=== PATIENT | male | born 1950 | race Caucasian/White ===

== ENCOUNTER → 2017-03-30 14:39 | Outpatient (CLI) | payer MEDICARE, OTHER, SELFPAY ==
[2017-02-27 09:00] VITALS: BP 109/69
[2017-03-30 13:54] VITALS: BP 98/50; BMI 29.9
[2017-03-30 16:19] LABS: Absolute Lymphocyte Count 1.42 X10^3/ul (0.83-4.51); Absolute Neutrophil Count 2.9 X10^3/uL (2.0-7.7); Basophil# 0.02 X10^3/uL; Basophil% 0.4 % (0-1); Eosinophil# 0.33 X10^3/uL; Eosinophils% 6.2 % (0-5); Hematocrit 42.8 % (40-54); Hemoglobin 14.2 g/dl (13.0-16.5); Lymphocyte # 1.42 X10^3/ul (4.0); Lymphocyte % 26.7 % (19-41); Mean Corp Hgb Conc 33.2 g/gl (32-36); Mean Corpuscular Hgb 30.5 pg (27.0-32.0); Mean Corpuscular Volume 91.8 fL (80-94); Mean Platelet Vol. 9.5 fl (6.2-12.0); Monocyte% 11.3 % (0-10); Neutrophil # 2.94 X10^3/uL (2.7-7.7); Neutrophil % 55.2 % (47-70); Platelet Count 288 K/mm3 (150-450); RBC Distribution Width CV 13.6 % (11.6-14.6); RBC Distribution Width SD 45.1 fl (35.1-43.9); Red Blood Count 4.66 M/mm3 (4.6-6.2); White Blood Count 5.3 K/mm3 (4.4-11.0)
[2017-03-30 16:23] LABS: POSITIVE COUNT NO; POSITIVE DIFFERENTIAL NO; POSITIVE MORPHOLOGY NO
[2017-03-30 16:34] LABS: Anion Gap 9 (5-15); BUN 14 mg/dL (7-18); Calcium,Total 8.5 mg/dL (8.5-10.1); Chloride 102 mmol/L (98-107); Creatinine, Serum 0.87 mg/dL (0.70-1.30); EST Glomerular Filtration Rate 92 mL/min (>60); Est Glom Filt Rate - Afr Amer 112 mL/min (>60); Glucose 91 mg/dL (74-106); Potassium 3.9 mmol/L (3.5-5.1); Sodium Level 139 mmol/L (136-145)
== END ==
PROVIDERS: Family Provider Family Medicine; PCP Family Medicine; Visit Provider Internal Medicine Cardiovascular Disease
DX: R07.9 Chest pain, unspecified (principal); E78.5 Hyperlipidemia, unspecified
CPT/HCPCS: 36415; 80048; 85025

== ENCOUNTER 2017-04-04 12:43 | Inpatient (IN) | payer MEDICARE, OTHER, SELFPAY ==
[2017-02-27 09:00] VITALS: BP 109/69
[2017-03-30 13:54] VITALS: BP 98/50; BMI 29.9
[2017-04-02 10:21] VITALS: BMI 29.9
[2017-04-03] VITALS (34 sets, daily range): BP systolic 49–125; BP diastolic 34–65; PULSE 51–76; RESP 12–61; TEMP 36.1–37.1; O2SAT 92–100; BMI 30.9
--- NOTE | 2017-04-03 11:30 | EKG12_ITS ---
Test Reason : CP Blood Pressure : / mmHG Vent. Rate : 057 BPM Atrial Rate : 057 BPM P-R Int : 172 ms QRS Dur : 074 ms QT Int : 412 ms P-R-T Axes : 037 -27 065 degrees QTc Int : 401 ms Sinus bradycardia Inferior infarct , age undetermined, possibly recent Abnormal ECG Confirmed by MICHELLE FIELD, ROSEANNE ([id number]), writer editor GEREMIAS FELDER ([id number]) on 04/04/2017 1:34:19 PM Referred By: Rodger Newell Confirmed By:ROSEANNE MARTINEZ MD
--- NOTE | 2017-04-03 11:58 | CRPHASE1 ---
Patient Data/Charges Phase II Referral:: [facility] - PT NOT SEEN TODAY WE GAVE HIM CRPHII INFO IN FEB 2016 Risk Factors/Lifestyle Family History: Family History (Last Reviewed 03/30/17 @ 14:13 by Rodger Newell MD) Father CAD (coronary artery disease)
--- NOTE | 2017-04-03 11:58 | NURSING ---
1150 Pt w/ onset of nausea and diaphoresis 1152 EKG obtained HR 58 RR 14 97% on 3L BP 87/53 IVF bolus started nitro stopped MD notified per Shonda RN
[2017-04-03] MEDS: 0.9% Normal Saline 1,000 ML 100 ML IV (12:00)
--- NOTE | 2017-04-03 12:01 | CRPHASE1_ITS ---
Patient Data/Charges Phase II Referral:: [facility] - PT NOT SEEN TODAY WE GAVE HIM CRPHII INFO IN FEB 2016 Risk Factors/Lifestyle Family History: Family History (Last Reviewed 03/30/17 @ 14:13 by Rodger Newell MD) Father CAD (coronary artery disease)
--- NOTE | 2017-04-03 12:01 | CRPH1.INSTRU ---
General Education CAD and cardiac anatomy and function:: Not instructed Explanation of diagnoses and procedures:: Not instructed Sign/Symptoms of NM:: Not instructed Antiplatelet therapy: Not instructed Proper use of NTG-SL: Not instructed Emergency procedures and activation of EMS: Not instructed Compliance of all prescribed medications: Not instructed - PT NOT SEEN TODAY WE SAW HIM IN FEB 2016
--- NOTE | 2017-04-03 12:02 | CL.I_ITS ---
Patient Name: ALVARO HALL Study Date: 04/03/2017 Performing: Paris Jaeger MD Ht: 66 inches 168 cm : 1950 Wt: 185.4 lbs 84 kg Age: 66 Gender: male BSA: 1.94 PROCEDURE(S) PERFORMED [id number] W OR WO PTCA, SINGLE CORONARY ARTERY [id number], EACH ADD'L CORONARY ART, SAME MAJOR [id number], CORONARY OR GRAFT, INITIAL VESSEL CLINICAL PROFILE AND CO-MORBIDITIES Angina Classification Anginal Classification w/in 2 Weeks: CCS III CAD Presentations: Stable angina. CONCLUSIONS Successful PTCA/PARTH of the distal RCA into RPDA using Resolute Integrity 2.25x26 mm, post-dilated usi ng 2.5 mm balloon Post IVUS showed excellent stent apposition RECOMMENDATIONS ASA Indefinitley Effient for at least one year Follow up with Dr. Newell INTERVENTION INFORMATION LESION SITE: RCA (Distal) Lesion Complexity: High/C, lesion at bifurcation: Yes Pre Stenosis: 99 % Pre intervention GISSELLE flow: 2 PROCEDURE: Drug Eluting Stent with pre and post dilatation Post Stenosis: 0 % Post intervention GISSELLE flow: 3 Lesion Devices: Medtronic 6 Fr AL.75 100cm Guide Catheter Terumo .014 Runthrough Extra Floppy 180cm straight Terumo .014 Runthrough Extra Floppy 180cm straight Killian Sci EMERGE MR 2.00x20 BALLOON Medtronic Resolute RX PARTH 2.25x26 [place] Coronary IVUS Catheter LESION SITE: RPL (1st) Lesion Complexity: High/C Pre Stenosis: 95 % Pre intervention GISSELLE flow: 3 PROCEDURE: Post Stenosis: 10 % Post intervention GISSELLE flow: 3 Lesion Devices: Le .014 HT Whisper MS Straight 190cm Killian Sci EMERGE MR 2.00x12 BALLOON Killian Sci EMERGE MR 2.50x12 BALLOON [place] Coronary IVUS Catheter LESION SITE: RCA (Mid) Lesion Complexity: High/C, Lesion Complexity: High/C Pre Stenosis: 80 % Pre intervention GISSELLE flow: 3 PROCEDURE: Drug Eluting Stent with post dilatation 0 % Post intervention GISSELLE flow: 3 Lesion Devices: Medtronic Resolute RX PARTH 3.0x15 Killian Sci NC EMERGE MR 3.00x08 BALLOON [place] Coronary IVUS Catheter Medtronic Resolute RX PARTH 3.0x30 Killian Sci NC EMERGE MR 3.00x20 BALLOON COMPLICATIONS No Complications PROCEDURE MEDICATIONS Fentanyl 25 mcg IV Versed 2 mg IV Fentanyl 25 mcg IV Versed 1 mg IV Fentanyl 25 mcg IV Fentanyl 50 mcg IV Versed 1 mg IV Fentanyl 50 mcg IV Fentanyl 25 mcg IV Oxygen: 2 L/min via nasal cannula Oxygen: 100 % FiO2 via non-rebreather mask Atropine 1mg/10ml 0.5 amp @ 04/03/2017 09:03:49 Heparin diluted in 23cc Heparinized saline. Patient given 10cc IA of this solution. 04/03/2017 08:37: 02 Heparin 6000 unit(s) IV 04/03/2017 08:38:15 Heparin 1000 unit(s) IV 04/03/2017 09:19:33 Heparin 1000 unit(s) IV 04/03/2017 10:13:50 Nitro 200 mcg IC 04/03/2017 08:48:45 Nitro 200 mcg IC 04/03/2017 08:48:45 Nitro 200 mcg IC 04/03/2017 08:58:39 Nitro 200 mcg IC 04/03/2017 09:44:48 Nitro 200 mcg IC 04/03/2017 10:04:24 Nitro 200 mcg IC 04/03/2017 10:13:35 Nipride 100 mcg IV 04/03/2017 10:34:49 Nitro glycerin 25mg / 250ml D5W @ 10 mcg/min IV started 04/03/2017 10:43:01 Verapamil 2.5mg, Ntg 100mcgs, 2000 units of Heparin diluted in 23cc Heparinized saline. Patient give n 10cc IA of this solution. 04/03/2017 08:37:02 IV Bolus: .9 NaCl 500 ml total 04/03/2017 08:35:12 IV Bolus: .9 NaCl 750 ml total 04/03/2017 10:45:33 SUMMARY OF HEMODYNAMIC DATA Time AIR REST ECG 07:14:03 AO 103/66 (82) SA 08:38:09 AO 127/79 (101) 08:50:15 AO 108/61 (79) 09:04:35 AO 115/71 (91) 09:05:22 AO 112/67 (88) 09:10:55 ECG 10:36:23 Signed By Paris Jaeger MD On 04/03/2017 12:01:46 Paris Jaeger MD
--- NOTE | 2017-04-03 12:49 | PCM.PN.BLA ---
Progress Note Patient had EKG changes while on the table in the outside laborer. GISSELLE III flow. Patient had CP on the table but resolved. No further CP. Quick bedside echo showed no wall motion abnormality.Continue to monitor.
--- NOTE | 2017-04-03 12:52 | PN_ITS ---
Progress Note Patient had EKG changes while on the table in the general laborer. GISSELLE III flow. Patient had CP on the table but resolved. No further CP. Quick bedside echo showed no wall motion abnormality.Continue to monitor.
[2017-04-03 13:21] LABS: ACT Activated Clotting Time 224 sec (74-137)
[2017-04-03 13:21] LABS: ACT Activated Clotting Time 246 sec (74-137)
[2017-04-03] MEDS: 0.9% NaCl Peripheral Flush Adult/Peds IV ×2 (13:36→14:39)
[2017-04-03] MEDS: Ondansetron 4 MG/2 ML Vial IV (13:36)
--- NOTE | 2017-04-03 13:46 | NURSING ---
Echo at bedside
--- NOTE | 2017-04-03 13:58 | CHAPLAIN ---
Type of Pastoral Visit _x__ Initial Visit ___ Follow-up Visit ___ On-call Visit ___ General Patient Visit ___ Spiritual Assessment ___ Family Conference ___ Bereavement ___ Rapid Response ___ Code Blue ___ Other (describe below) Pastoral Care Referral From _x__ Patient _x__ Family ___ Nurse ___ Physician ___ Undercoat Sprayer ___ Infantry Indirect Fire Crewmember ___ Other (describe below) Sacrament/Intervention _x__ Active listening ___ Anointing ___ Yazidi ___ Bereavement ___ Communion ___ Tuyet exploration ___ ___ Life review _x__ Prayer ___ Reconciliation ___ Sacrament of Sick _x__ Supportive presence ___ Wedding ___ Other (describe below) Pastoral Comments family members and bahai friend are with patient for support; patient welcomes a group prayer; pt has had successful surgery and says I am ready to get active again
--- NOTE | 2017-04-03 14:06 | ECHOL_ITS ---
Reason For Study: Abn. EKG Procedure This was a limited 2D transthoracic echocardiogram. Exam performed portable in ICU/CCU. Left Ventricle Normal LV size. Left ventricular systolic function is normal. The estimated ejection fraction is 60 %. No regional wall motion abnormalities noted. Mitral Valve Normal mitral valve. Trivial eccentric mitral valve insufficiency. Pericardium/Pleural No pericardial effusion. MMode/2D Measurements & Calculations LVIDd: 3.8 cm IVSd: 0.94 cm LVIDs: 2.4 cm LVPWd: 1.0 cm FS: 38.5 % Interpretation Summary Normal LV size. Left ventricular systolic function is normal. The estimated ejection fraction is 60 %. No regional wall motion abnormalities noted. Ordering Physician: Paris Jaeger Referring Physician: Alvaro Smith Performed By: Dolores Arellano RDCS
[2017-04-03 14:26] LABS: M R Staph aureus DNA By PCR Negative (Negative); Probe Check PASS; Specimen Processing Control PASS
[2017-04-03] MEDS: fentaNYL 100 MCG/2 ML Ampul 25 MCG IV (14:39)
--- NOTE | 2017-04-03 15:07 | NURSING ---
Pt given crackers and guicho taylor for nausea post fentanyl administration; IVF bolus infusing.
[2017-04-03] MEDS: 0.9% Normal Saline 1,000 ML 60 ML IV (15:30)
[2017-04-03] MEDS: Pravastatin 40 MG Tablet PO (21:20)
[2017-04-03] MEDS: Metoprolol Tartrate 25 MG Tablet PO (21:39)
--- NOTE | 2017-04-03 23:03 | NURSING ---
500 cc bolus given for Blood Pressure of 73/36 (48). Heather Griffiths RN.
[2017-04-04] VITALS (34 sets, daily range): BP systolic 84–129; BP diastolic 33–93; PULSE 51–73; RESP 11–25; TEMP 35.9–37; O2SAT 91–98
[2017-04-04] MEDS: 0.9% Normal Saline 500 ML IV.SOLN. IV (02:00)
[2017-04-04] MEDS: Ondansetron 4 MG/2 ML Vial IV (02:39)
[2017-04-04] MEDS: 0.9% NaCl Peripheral Flush Adult/Peds IV (02:39)
[2017-04-04 05:38] LABS: Anion Gap 9 (5-15); BUN 13 mg/dL (7-18); Calcium,Total 7.9 mg/dL (8.5-10.1); Chloride 106 mmol/L (98-107); Creatinine, Serum 0.87 mg/dL (0.70-1.30); EST Glomerular Filtration Rate 93 mL/min (>60); Est Glom Filt Rate - Afr Amer 112 mL/min (>60); Estimated Creatinine Clearance 74.35 ml/min; Glucose 136 mg/dL (74-106); Potassium 3.6 mmol/L (3.5-5.1); Sodium Level 139 mmol/L (136-145)
[2017-04-04 05:41] LABS: Hematocrit 39.8 % (40-54); Hemoglobin 13.3 g/dl (13.0-16.5); Mean Corp Hgb Conc 33.4 g/gl (32-36); Mean Corpuscular Hgb 30.5 pg (27.0-32.0); Mean Corpuscular Volume 91.3 fL (80-94); Mean Platelet Vol. 9.3 fl (6.2-12.0); Platelet Count 264 K/mm3 (150-450); RBC Distribution Width CV 13.8 % (11.6-14.6); RBC Distribution Width SD 46.1 fl (35.1-43.9); Red Blood Count 4.36 M/mm3 (4.6-6.2); White Blood Count 11.8 K/mm3 (4.4-11.0)
[2017-04-04 05:42] LABS: Scan Indicated on CBC? Y/N NO
--- NOTE | 2017-04-04 05:55 | EKG12_ITS ---
Test Reason : AM EKG Blood Pressure : / mmHG Vent. Rate : 052 BPM Atrial Rate : 052 BPM P-R Int : 180 ms QRS Dur : 074 ms QT Int : 438 ms P-R-T Axes : 035 -36 050 degrees QTc Int : 407 ms Sinus bradycardia Left axis deviation Low voltage QRS Inferior infarct , age undetermined Abnormal ECG When compared with ECG of 03-APR-2017 12:04, MANUAL COMPARISON REQUIRED, DATA IS UNCONFIRMED Confirmed by RALPH FIELD, DASH ([id number]), city editor GEREMIAS FELDER ([id number]) on 04/05/2017 1:09:27 PM Referred By: RALPH Confirmed By:DASH ROSAS MD
--- NOTE | 2017-04-04 07:48 | PN.CARD_ITS ---
Subjectve: Patient seen and evaluated and events of yesterday noted. Objective: Vital Signs Temp Pulse Resp BP Pulse Ox 98.6 F 58 L 14 99/56 L 96 04/04/17 06:00 04/04/17 06:00 04/04/17 06:00 04/04/17 06:00 04/04/17 06:00 Oxygen Flow Rate 2 Oxygen Delivery Method Nasal Cannula Weight: 192 lb 10.944 oz Body Mass Index (BMI) 30.9 Intake and Output for Last 24 Hours 04/02/17 04/03/17 04/04/17 23:59 23:59 23:59 Intake Total 1491.6 / 1491.6 429 / 429 Output Total 1370 / 1370 225 / 225 Balance 121.6 / 121.6 204 / 204 General: Awake, Alert, Oriented x 3 HEENT: PERRL, EOMI, Sclera Non Icteric Neck: Supple, Good ROM, No Lymph Node Enlargement Lungs: Clear to auscultation Cardiovascular: Regular Rhythm, Normal S1, Normal S2, No Murmurs, No Rubs, No Gallops Vascular: No Carotid Bruits, Normal Femoral Pulses, Normal Radial Pulses, Normal Dorsalis Pedal Pulse, Normal Posterior Tibial Pulses Abdomen: Bowel Sounds Present, Soft, Non Tender, No HSM, No Organomegaly Extremities: No Cyanosis, No Clubbing, No edema Neurological: No Focal Motor or Sensory Deficit 04/04/17 04:00: WBC Cancelled, Corrected WBC Cancelled, RBC Cancelled, Hgb Cancelled, Hct Cancelled, MCV Cancelled, MCH Cancelled, MCHC Cancelled, RDW Cancelled, RDW Differential Cancelled, Plt Count Cancelled, MPV Cancelled 04/04/17 04:00: Sodium Cancelled, Potassium Cancelled, Chloride Cancelled, Carbon Dioxide Cancelled, Anion Gap Cancelled, BUN Cancelled, Creatinine Cancelled, Est GFR (MDRD) Af Amer Cancelled, Est GFR (MDRD) Non-Af Cancelled, BUN/Creatinine Ratio Cancelled, Glucose Cancelled, Calcium Cancelled, Troponin I Cancelled 04/04/17 05:05: WBC 11.8 H, RBC 4.36 L, Hgb 13.3, Hct 39.8 L, MCV 91.3, MCH 30.5 , MCHC 33.4, RDW 13.8, RDW Differential 46.1 H, Plt Count 264, MPV 9.3 04/04/17 05:05: Sodium 139, Potassium 3.6, Chloride 106, Carbon Dioxide 24.0, Anion Gap 9, BUN 13, Creatinine 0.87, Est GFR (MDRD) Af Amer 112, Est GFR (MDRD ) Non-Af 93, BUN/Creatinine Ratio 15.0, Glucose 136 H, Calcium 7.9 L, Troponin I 14.10 H* Rhythm: EKG: Normal sinus rhythm with inferior infarct noted ECHO: Preserved ejection fraction estimated at 55-60% with no wall motion abnormality present. Assessment/Plan 1. Coronary artery disease- S/P PTCA He underwent angioplasty and complex stenting of the mid and distal right coronary artery yesterday. The above was successful but he had a resultant type 4 myocardial infarction. Echocardiogram that was performed demonstrated preserved ejection fraction EKG changes with ST elevation have resolved back to baseline and currently the patient is pain-free this morning. Plan will be to continue him on aspirin Resume Plavix 75 mg twice daily ?10 days and then 75 mg daily High intensity statin Low-dose beta-alex with metoprolol 25 mg twice a day We will keep him in the ICU 1 more day. 2. Wide Complex tachycardia Patient did experience some wide complex tachycardia which may have been reperfusion arrhythmias. Was started on amiodarone. The plan will be to complete the amiodarone infusion. Would give some potassium supplementation this morning. Above discussed with patient, and nursing staff.
[2017-04-04] MEDS: Aspirin E.C. 81 MG Tablet PO (09:20)
[2017-04-04] MEDS: Clopidogrel Bisulfate 75 MG Tablet PO ×2 (09:20→21:50)
--- NOTE | 2017-04-04 17:01 | CHAPLAIN ---
Type of Pastoral Visit ___ Initial Visit _x__ Follow-up Visit ___ On-call Visit ___ General Patient Visit ___ Spiritual Assessment ___ Family Conference ___ Bereavement ___ Rapid Response ___ Code Blue ___ Other (describe below) Pastoral Care Referral From _x__ Patient _x__ Family ___ Nurse ___ Physician ___ Paint Tester ___ Freezer Worker ___ Other (describe below) Sacrament/Intervention ___ Active listening ___ Anointing ___ Yazdanism ___ Bereavement ___ Communion ___ Tuyet exploration ___ ___ Life review ___ Prayer ___ Reconciliation ___ Sacrament of Sick _x__ Supportive presence ___ Wedding ___ Other (describe below) Pastoral Comments
[2017-04-04] MEDS: Pravastatin 40 MG Tablet PO (21:50)
[2017-04-05] VITALS (11 sets, daily range): BP systolic 95–122; BP diastolic 50–64; PULSE 58–83; RESP 8–24; TEMP 36.6–36.9; O2SAT 91–96
[2017-04-05 03:46] LABS: Hematocrit 42.2 % (40-54); Hemoglobin 14.3 g/dl (13.0-16.5); Mean Corp Hgb Conc 33.9 g/gl (32-36); Mean Corpuscular Hgb 31.2 pg (27.0-32.0); Mean Corpuscular Volume 91.9 fL (80-94); Mean Platelet Vol. 9.3 fl (6.2-12.0); Platelet Count 241 K/mm3 (150-450); RBC Distribution Width SD 46.3 fl (35.1-43.9); Red Blood Count 4.59 M/mm3 (4.6-6.2); White Blood Count 12.5 K/mm3 (4.4-11.0)
[2017-04-05 03:47] LABS: Scan Indicated on CBC? Y/N NO
[2017-04-05 03:58] LABS: Anion Gap 6 (5-15); BUN 8 mg/dL (7-18); BUN/Creat Ratio 11.4 RATIO (10-20); Chloride 107 mmol/L (98-107); EST Glomerular Filtration Rate 119 mL/min (>60); Est Glom Filt Rate - Afr Amer 145 mL/min (>60); Estimated Creatinine Clearance 64.69 ml/min; Glucose 109 mg/dL (74-106); Potassium 3.6 mmol/L (3.5-5.1); Sodium Level 140 mmol/L (136-145)
--- NOTE | 2017-04-05 05:55 | EKG12_ITS ---
Test Reason : AM EKG Blood Pressure : / mmHG Vent. Rate : 057 BPM Atrial Rate : 057 BPM P-R Int : 170 ms QRS Dur : 070 ms QT Int : 422 ms P-R-T Axes : 036 -44 -12 degrees QTc Int : 410 ms Sinus bradycardia Left axis deviation Low voltage QRS Inferior infarct , age undetermined Abnormal ECG When compared with ECG of 04-APR-2017 05:02, MANUAL COMPARISON REQUIRED, DATA IS UNCONFIRMED Confirmed by SUAD ARRIAZA ([id number]), editor at large GEREMIAS FELDER ([id number]) on 04/12/2017 3:03:23 PM Referred By: Rodger Newell Confirmed By:SUAD ARRIAZA
--- NOTE | 2017-04-05 08:08 | PCM.PN.CARD ---
Subjectve: Patient seen and evaluated and appears to be doing well today no chest pain no shortness of breath no dizziness no arrhythmias. Objective: Vital Signs Temp Pulse Resp BP Pulse Ox 97.8 F 68 14 99/59 L 91 04/05/17 04:00 04/05/17 06:00 04/05/17 06:00 04/05/17 06:00 04/05/17 06:00 Oxygen Flow Rate 2 Oxygen Delivery Method Room Air Weight: 192 lb 10.944 oz Body Mass Index (BMI) 30.9 Intake and Output for Last 24 Hours 04/03/17 04/04/17 04/05/17 23:59 23:59 23:59 Intake Total 1491.6 / 1491.6 2149 / 2149 695.5 / 695.5 Output Total 1370 / 1370 2375 / 2375 1075 / 1075 Balance 121.6 / 121.6 -226 / -226 -379.5 / -379.5 General: Awake, Alert, Oriented x 3 HEENT: PERRL, EOMI, Sclera Non Icteric Neck: Supple, Good ROM, No Lymph Node Enlargement Lungs: Clear to auscultation Cardiovascular: Regular Rhythm, Normal S1, Normal S2, No Murmurs, No Rubs, No Gallops Vascular: No Carotid Bruits, Normal Femoral Pulses, Normal Radial Pulses, Normal Dorsalis Pedal Pulse, Normal Posterior Tibial Pulses Abdomen: Bowel Sounds Present, Soft, Non Tender, No HSM, No Organomegaly Extremities: No Cyanosis, No Clubbing, No edema Neurological: No Focal Motor or Sensory Deficit 04/05/17 03:35: WBC 12.5 H, RBC 4.59 L, Hgb 14.3, Hct 42.2, MCV 91.9, MCH 31.2, MCHC 33.9, RDW 14.0, RDW Differential 46.3 H, Plt Count 241, MPV 9.3 04/05/17 03:35: Sodium 140, Potassium 3.6, Chloride 107, Carbon Dioxide 27.0, Anion Gap 6, BUN 8, Creatinine 0.70, Est GFR (MDRD) Af Amer 145, Est GFR (MDRD) Non-Af 119, BUN/Creatinine Ratio 11.4, Glucose 109 H, Calcium 8.0 L Rhythm: EKG: Sinus rhythm with inferior Q waves. ECHO: Ejection fraction 60% Assessment/Plan 1. Coronary artery disease- S/P PTCA He underwent angioplasty and complex stenting of the mid and distal right coronary artery . The above was successful but he had a resultant type 4 myocardial infarction. Echocardiogram that was performed demonstrated preserved ejection fraction EKG changes with ST elevation have resolved back to baseline and currently the patient is pain-free this morning. Plan will be to continue him on aspirin Resume Plavix 75 mg twice daily ?10 days and then 75 mg daily High intensity statin Low-dose beta-alex with metoprolol 25 mg twice a day 2. Wide Complex tachycardia Patient did experience some wide complex tachycardia which may have been reperfusion arrhythmias. Was started on amiodarone. The plan will be to complete the amiodarone infusion. No further arrhythmias have been noted and with a preserved ejection fraction would only continue the metoprolol 25 mg twice a day. To be followed as an outpatient in the office in cardiac rehabilitation.
--- NOTE | 2017-04-05 08:10 | PCM.DC.CCA ---
Discharge Diet: Low fat/ Low Cholesterol Discharge Activity: Return to Normal Activity Call your doctor if your incision/area has: Increased Pain/ Swelling, Increased Redness, Foul Smelling Discharge, Swelling at the incision site Call your doctor if you observe: Fever of 101 or Higher Additional Dressing/Incision Instructions:: Keep the dressing (bandage) on until the next morning. You may then shower, but do not take a tub bath for 5 days after your test. It is normal to have some tenderness and discomfort at the puncture site. Sometimes bruising also occurs. However, if pain, numbness, or coldness occurs below the puncture site (in your leg, toes, arms or fingers) call your doctor at once. You may have a small, marble sized knot at the puncture site. This is normal. Do not rub it. It will go away in 4-6 weeks. Bleeding can occur from the area where the puncture was done. Blood may spurt or drip from the site. If blood spurts, apply pressure right away to stop bleeding and call 911. Although rare, bleeding into the tissue (hematoma) can also occur. If this happens, a large, firm area goose egg under the skin will appear. If any of these occur, lie down as flat as you can and have someone apply firm pressure to the cath site with a gauze pad or a clean washcloth for 10-15 minutes. Call 911 or go to the Emergency Department. Allergies/Adverse Reactions: Allergies ticagrelor [From Brilinta] Adverse Reaction (Verified 03/30/17 14:00) Orthopnea Medications to take at Discharge Isosorbide Mononitrate [Imdur] 30 mg PO DAILY #90 tablet 02/27/17 Metoprolol Tartrate [Lopressor (beta alex)] 25 mg PO BID #120 tablet 02/27/17 Pravastatin [Pravachol] 40 mg PO QHS #90 tablet 02/27/17 aspirin 81 mg tablet,delayed release 81 mg PO QDAY #90 tab 02/27/17 clopidogrel 75 mg tablet 75 mg PO BIDAC tab 03/30/17 Primary Care Physician: Alvaro Smith DO [Primary Care Provider] - When: kayley Proposed Discharge Date: 04/05/17 Cardiac Rehabilitation Info Cardiac Rehabilitation Program Information: Cardiac Rehabilitation is important for patients like you who are recovering from a heart problem. Cardiac rehabilitation programs are recognized as integral to the continued care of the patient with coronary heart disease. The cardiac rehabilitation program is designed to optimize a patient's physical, psychological, and social functioning. Health child care leader work in cardiac rehabilitation programs and assist you with getting the treatments you need to get stronger and healthier - like exercise, healthy eating habits, and medications. Cardiac rehabilitation has been show to help people with heart problems live longer and have better life enjoyment than people who do not go to cardiac rehabilitation. Please contact the Cardiac Rehabilitation Program at [facility] at in two weeks if you have not heard from them.
--- NOTE | 2017-04-05 08:15 | DCINST_ITS ---
Discharge Diet: Low fat/ Low Cholesterol Discharge Activity: Return to Normal Activity Call your doctor if your incision/area has: Increased Pain/ Swelling, Increased Redness, Foul Smelling Discharge, Swelling at the incision site Call your doctor if you observe: Fever of 101 or Higher Additional Dressing/Incision Instructions:: Keep the dressing (bandage) on until the next morning. You may then shower, but do not take a tub bath for 5 days after your test. It is normal to have some tenderness and discomfort at the puncture site. Sometimes bruising also occurs. However, if pain, numbness, or coldness occurs below the puncture site (in your leg, toes, arms or fingers) call your doctor at once. You may have a small, marble sized knot at the puncture site. This is normal. Do not rub it. It will go away in 4-6 weeks. Bleeding can occur from the area where the puncture was done. Blood may spurt or drip from the site. If blood spurts, apply pressure right away to stop bleeding and call 911. Although rare, bleeding into the tissue (hematoma) can also occur. If this happens, a large, firm area goose egg under the skin will appear. If any of these occur, lie down as flat as you can and have someone apply firm pressure to the cath site with a gauze pad or a clean washcloth for 10-15 minutes. Call 911 or go to the Emergency Department. Allergies/Adverse Reactions: Allergies ticagrelor [From Brilinta] Adverse Reaction (Verified 03/30/17 14:00) Orthopnea Medications to take at Discharge Isosorbide Mononitrate [Imdur] 30 mg PO DAILY #90 tablet 02/27/17 Metoprolol Tartrate [Lopressor (beta alex)] 25 mg PO BID #120 tablet Pravastatin [Pravachol] 40 mg PO QHS #90 tablet 02/27/17 aspirin 81 mg tablet,delayed release 81 mg PO QDAY #90 tab 02/27/17 clopidogrel 75 mg tablet 75 mg PO BIDAC tab 03/30/17 Primary Care Physician: Alvaro Smith DO [Primary Care Provider] - When: kayley Proposed Discharge Date: 04/05/17 Cardiac Rehabilitation Info Cardiac Rehabilitation Program Information: Cardiac Rehabilitation is important for patients like you who are recovering from a heart problem. Cardiac rehabilitation programs are recognized as integral to the continued care of the patient with coronary heart disease. The cardiac rehabilitation program is designed to optimize a patient's physical, psychological, and social functioning. Health child care education coordinator work in cardiac rehabilitation programs and assist you with getting the treatments you need to get stronger and healthier - like exercise, healthy eating habits, and medications. Cardiac rehabilitation has been show to help people with heart problems live longer and have better life enjoyment than people who do not go to cardiac rehabilitation. Please contact the Cardiac Rehabilitation Program at [facility] at in two weeks if you have not heard from them.
[2017-04-05] MEDS: Metoprolol Tartrate 25 MG Tablet PO (09:10)
[2017-04-05] MEDS: Aspirin E.C. 81 MG Tablet PO (09:10)
[2017-04-05] MEDS: Clopidogrel Bisulfate 75 MG Tablet PO (09:12)
[2017-04-05] MEDS: Isosorbide Mononitrate 30 MG Tablet PO (09:43)
== END 2017-04-05 09:55 | disposition home or self-care (01) | DRG 246 ==
LOC: ICU 12:43 → CLSP 12:43
PROVIDERS: Internal Medicine Cardiovascular Disease; Admitting Provider Internal Medicine Cardiovascular Disease; Family Provider Family Medicine; PCP Family Medicine; Visit Provider Internal Medicine Cardiovascular Disease
DX: I97.790 Other intraoperative cardiac functional disturbances during cardiac surgery (principal); I21.A9 Other myocardial infarction type; I25.10 Atherosclerotic heart disease of native coronary artery without angina pectoris; I25.118 Atherosclerotic heart disease of native coronary artery with other forms of angina pectoris
CPT/HCPCS: 80048; 84484; 85027; 85347; 87641; 92921; 92928; 92978; 93005; 93308; 99152; 99153; J7030; J7040; Q9967; A4216; C1725; C1753; C1769; C1874; C1887; C1894; C9600; J1327; J2405

== ENCOUNTER → 2017-04-12 11:54 | Outpatient (CLI) | payer MEDICARE, OTHER, SELFPAY | PROVIDERS: Family Provider Family Medicine; PCP Family Medicine; Visit Provider Family Medicine | DX: Z12.5 Encounter for screening for malignant neoplasm of prostate (principal) | CPT/HCPCS: 36415; 84153; G0103 ==

== ENCOUNTER → 2017-08-02 12:06 | Outpatient (CLI) | payer MEDICARE, OTHER, SELFPAY ==
[2017-08-02 13:53] LABS: AST(SGOT) 16 U/L (15-37); Alanine Aminotransfer ALT/SGPT 29 U/L (16-61); Albumin, Serum 3.7 g/dL (3.2-5.0); Alkaline Phosphatase 64 U/L (45-117); Bilirubin, Direct 0.14 mg/dL (0.00-0.30); Cholesterol 119 mg/dL (200); Globulin 3.6 g/dL (2.2-4.2); High Density Lipoprotein 42 mg/dL; Protein, Total 7.3 g/dL (6.4-8.2); Triglycerides 60 mg/dL; Very Low Density Lipoprotein 12 mg/dL (5-40)
== END ==
PROVIDERS: Family Provider Family Medicine; PCP Family Medicine; Visit Provider Internal Medicine Cardiovascular Disease
DX: E78.00 Pure hypercholesterolemia, unspecified (principal)
CPT/HCPCS: 36415; 80061; 80076

== ENCOUNTER → 2017-08-16 06:10 | Outpatient (CLI) | payer MEDICARE, OTHER, SELFPAY ==
--- NOTE | 2017-08-16 09:45 | STRESSREP ---
Stress Test Report Date: 08/16/2017 Procedure: Exercise tolerance test/imaging study Indications: CAD; status post PCI Consent: Per the patient Procedure: The patient exercised on a Surjit protocol for 9 minutes completing Stage III achieving a peak heart rate of 130 bpm (86 % predicted maximal heart rate) with a peak blood pressure 132/70 mmHg and a peak MET capacity of 10 METs. The baseline ECG demonstrated sinus bradycardia; nonspecific T-wave abnormality. The peak exercise ECG demonstrated somatic/motion artifact with no obvious ECG changes. There was a rare PVC during recovery. The functional capacity was considered good. There was vague chest discomfort at peak exercise with spontaneous resolution less than 1 minute in recovery. The examination was discontinued secondary to dyspnea and leg discomfort. Impression: 1. Technically adequate (percent predicted maximal heart rate greater than 85%) exercise tolerance test 2. Peak exercise ECG with somatic/motion artifact with no obvious ECG changes 3. There was a rare PVC during recovery. 4. Nuclear images pending Myocardial perfusion imaging study: Technique: The patient was injected with 11.2 mCi of technetium 99m Cardiolite and subsequently rest SPECT Cardiolite nuclear imaging was obtained in the horizontal long, vertical long, and short axis views. The patient exercised on a Surjit protocol for 9 minutes completing Stage III achieving a peak heart rate of 130 bpm (86 % predicted maximal heart rate) with a peak blood pressure 132/70 mmHg and a peak MET capacity of 10 METs. The patient was injected with 33.9 mCi of technetium 99m Cardiolite and subsequently stress SPECT Cardiolite nuclear imaging was obtained in the horizontal long, vertical long, and short axis views. A gated Cardiolite study at peak stress was obtained. Interpretation: Rest and stress SPECT Cardiolite nuclear imaging status post realignment, normalization, and attenuation correction, demonstrates the appearance of relative uniform tracer uptake and myocardial perfusion appearing within normal limits. There is end systolic thickening and brightening. The gated Cardiolite study demonstrates myocardial thickening and inward wall motion. The reported LVEF is 79 %. Impression: 1. Rest and stress SPECT Cardiolite nuclear imaging demonstrate relative uniform tracer uptake and myocardial perfusion appearing within normal limits. 2. The gated Cardiolite study reports an LVEF of 79 %. This note was generated with [employer] software. It may contain incorrect words, spelling, and punctuation that were not noted in checking the note before signing.
--- NOTE | 2017-08-16 09:48 | STRESSREP_ITS ---
Stress Test Report Date: 08/16/2017 Procedure: Exercise tolerance test/imaging study Indications: CAD; status post PCI Consent: Per the patient Procedure: The patient exercised on a Surjit protocol for 9 minutes completing Stage III achieving a peak heart rate of 130 bpm (86 % predicted maximal heart rate) with a peak blood pressure 132/70 mmHg and a peak MET capacity of 10 METs. The baseline ECG demonstrated sinus bradycardia; nonspecific T-wave abnormality. The peak exercise ECG demonstrated somatic/motion artifact with no obvious ECG changes. There was a rare PVC during recovery. The functional capacity was considered good. There was vague chest discomfort at peak exercise with spontaneous resolution less than 1 minute in recovery. The examination was discontinued secondary to dyspnea and leg discomfort. Impression: 1. Technically adequate (percent predicted maximal heart rate greater than 85% ) exercise tolerance test 2. Peak exercise ECG with somatic/motion artifact with no obvious ECG changes 3. There was a rare PVC during recovery. 4. Nuclear images pending Myocardial perfusion imaging study: Technique: The patient was injected with 11.2 mCi of technetium 99m Cardiolite and subsequently rest SPECT Cardiolite nuclear imaging was obtained in the horizontal long, vertical long, and short axis views. The patient exercised on a Surjit protocol for 9 minutes completing Stage III achieving a peak heart rate of 130 bpm (86 % predicted maximal heart rate) with a peak blood pressure 132/ 70 mmHg and a peak MET capacity of 10 METs. The patient was injected with 33.9 mCi of technetium 99m Cardiolite and subsequently stress SPECT Cardiolite nuclear imaging was obtained in the horizontal long, vertical long, and short axis views. A gated Cardiolite study at peak stress was obtained. Interpretation: Rest and stress SPECT Cardiolite nuclear imaging status post realignment, normalization, and attenuation correction, demonstrates the appearance of relative uniform tracer uptake and myocardial perfusion appearing within normal limits. There is end systolic thickening and brightening. The gated Cardiolite study demonstrates myocardial thickening and inward wall motion. The reported LVEF is 79 %. Impression: 1. Rest and stress SPECT Cardiolite nuclear imaging demonstrate relative uniform tracer uptake and myocardial perfusion appearing within normal limits. 2. The gated Cardiolite study reports an LVEF of 79 %. This note was generated with [employer] software. It may contain incorrect words, spelling, and punctuation that were not noted in checking the note before signing.
== END ==
PROVIDERS: Family Provider Family Medicine; PCP Family Medicine; Visit Provider Internal Medicine Cardiovascular Disease
DX: Z95.5 Presence of coronary angioplasty implant and graft (principal)
CPT/HCPCS: 78452; 93017; A9500; A4216

== ENCOUNTER → 2017-12-31 11:25 | Outpatient (CLI) | payer MEDICARE, OTHER, SELFPAY ==
--- NOTE | 2017-12-31 17:03 | STRESSREP ---
Stress Test Report Exercise stress test. 67-year-old man with a history of coronary artery disease. Stress protocol: Resting EKG demonstrates normal sinus rhythm with a rate of 68 bpm normal intervals and noted resting blood pressure 114/76 mmHg. The patient exercised according to regular Surjit protocol for a total duration of 9 minutes. The maximum heart rate attained was 137 bpm which was 90% of maximum predicted heart rate the maximum workload was 10.1 metabolic equivalents. The patient maintained sinus rhythm throughout the recording. At rest there were no ST or T wave changes noted suggest ischemia peak exercise upsloping ST changes only were noted with no meet the criteria for ischemia. No obvious clinical angina was noted. The resting blood pressure 114/76 with a peak blood pressure 156/70 mmHg. Conclusion: Exercise stress test with no EKG criteria for ischemia at a high workload. No arrhythmias noted. No obvious angina noted.
== END ==
PROVIDERS: Family Provider Family Medicine; PCP Family Medicine; Referring Provider Internal Medicine Cardiovascular Disease; Visit Provider Internal Medicine Cardiovascular Disease
DX: I25.10 Atherosclerotic heart disease of native coronary artery without angina pectoris (principal); E78.5 Hyperlipidemia, unspecified; E66.9 Obesity, unspecified; Z95.5 Presence of coronary angioplasty implant and graft
CPT/HCPCS: 93017

== ENCOUNTER → 2018-03-08 16:12 | Outpatient (CLI) | payer MEDICARE, OTHER, SELFPAY ==
[2018-03-08 15:08] VITALS: BMI 30.7
--- NOTE | 2018-03-08 16:20 | RAD_ITS ---
STUDY: X-RAY CHEST REASON FOR EXAM: Male, 67 years old. Chest pain. TECHNIQUE: Frontal and lateral views of the chest. COMPARISON: 02/26/2017. FINDINGS: The lungs are clear and expanded. There is no demonstrated pleural abnormality. Normal size heart. Normal mediastinum and addis. Normal visualized pulmonary arteries. Normal visualized aortic arch and descending thoracic aorta. Normal visualized thoracic spine. Normal visualized ribs, clavicles, and shoulders. There is no demonstrated abnormality of the visualized soft tissue structures of the upper abdomen. RAD/Chest PA and Lateral IMPRESSION: Normal x-ray examination of the chest. Electronically Signed: Mg Braden MD at 0:00 EST , Service support ,
--- OUTSIDE RECORDS SUMMARY | 2018-05-13 07:31 | XMS RPT_ITS ---
:1950 Author Organization [place] Support Name Relationship Address Phone IMER LANDAVERDE Unavailable [address] + [place] [address] KIDEL Unavailable [address] [place] [address] + [address] [place] [address] NEUCHPRICILANDER, FELIPE Unavailable [address] + [place] [address] IMER LANDAVERDE Unavailable [address] + [place] [address] KIDEL Unavailable [address] [address] + [address] [place] [address] NEUCHWANDER, FELIPE Unavailable [address] + [place] [address] IMER LANDAVERDE Unavailable [address] + [place] [address] KIDEL Unavailable [address] + [address] [place] [address] NEUCHPRICILANDER, FELIPE Unavailable [address] + [place] [address] IMER LANDAVERDE Unavailable [address] + [place] [address] KIDEL Unavailable [address] [address] + [address] [place] [address] NEUCHWANDER, FELIPE Unavailable [address] + [place] [address] IMER LANDAVERDE Unavailable [address] + [place] [address] KIDEL Unavailable [address] [address] + [address] [place] [address] NEUCHWANDER, FELIPE Unavailable [address] + [place] [address] IMER LANDAVERDE Unavailable [address] + [place] [address] KIDEL Unavailable [address] [place] [address] + [address] [place] [address] NEUCHWANDER, FELIPE Unavailable [address] + [place] [address] IMER LANDAVERDE Unavailable [address] + [place] [address] KIDEL Unavailable [address] [address] + [address] [place] [address] NEUCHWANDER, FELIPE Unavailable [address] + [place] [address] IMER LANDAVERDE Unavailable [address] + [place] [address] KIDEL Unavailable [address] [address] + [address] [place] [address] NEUCHWANDER, FELIPE Unavailable [address] + [place] [address] IMER LANDAVERDE Unavailable [address] + [place] [address] KIDEL Unavailable [address] [address] + [address] [place] [address] NEUCHWANDER, FELIPE Unavailable [address] + [place] [address] IMER LANDAVERDE Unavailable [address] + [place] [address] KIDEL Unavailable [address] [place] [address] + [address] [place] [address] NEUCHWANDER, FELIPE Unavailable [address] + [place] [address] IMER LANDAVERDE Unavailable [address] + [place] [address] KIDEL Unavailable [address] [address] + [address] [place] [address] NEUCHWANDER, FELIPE Unavailable [address] + [place] [address] IMER LANDAVERDE Unavailable [address] + [place] [address] KIDEL Unavailable [address] [address] + [address] [place] [address] NEUCHWANDER, FELIPE Unavailable [address] + [place] [address] AKHIL IMER Unavailable [address] + [place] [address] KIDEL Unavailable [address] [address] + [address] [place] [address] NEUCHWANDER, FELIPE Unavailable [address] + [place] [address] IMER LANDAVERDE Unavailable [address] + [place] [address] KIDEL Unavailable [address] [place] [address] + [address] [place] [address] NEUCHWANDER, FELIPE Unavailable [address] + [place] [address] IMER LANDAVERDE Unavailable [address] + [place] [address] KIDEL Unavailable [address] [address] + [address] [place] [address] NEUCHWANDER, FELIPE Unavailable [address] + [place] [address] IMER LANDAVERDE Unavailable [address] + [place] [address] KIDEL Unavailable [address] [address] + [address] [place] [address] NEUCHWANDER, FELIPE Unavailable [address] + [place] [address] AKHIL IMER Unavailable [address] + [place] [address] KIDEL Unavailable [address] [place] [address] + [address] [place] [address] NEUCHWANDER, FELIPE Unavailable [address] + [place] [address] IMER LANDAVERDE Unavailable [address] + [place] [address] KIDEL Unavailable [address] [place] [address] + [address] [place] [address] NEUCHWANDER, FELIPE Unavailable [address] + [place] [address] KIDEL Unavailable [address] [place] [address] + [address] [place] [address] IMER LANDAVERDE Unavailable [address] + [place] [address] KIDEL Unavailable [address] [place] [address] + [address] [place] [address] NEUCHWANDER, FELIPE Unavailable [address] + [place] [address] IMER LANDAVERDE Unavailable [address] + [place] [address] KIDEL Unavailable [address] [place] [address] + [address] [place] [address] NEUCHWANDER, FELIPE Unavailable [address] + [place] [address] KIDEL Unavailable [address] [place] [address] + [address] [facility] [place] [address] KIDEL Unavailable [address] [place] [address] + [address] [place] [address] Care Team Providers Name Role Phone Kayley, Fanwood Attending Unavailable Alvaro Smith Referring Unavailable Kayley, Rodger Attending Unavailable Alvaro Smith Referring Unavailable Kayley, Rodger Attending Unavailable Kayley, Rodger Referring Unavailable SarahAlvaro Primary Care Unavailable Kayley, Fanwood Attending Unavailable Alvaro Smith Referring Unavailable Alvaro Smith Primary Care Unavailable Kayley, Rodger Attending Unavailable Kayley, Rodger Referring Unavailable SarahAlvaro montenegro Primary Care Unavailable Kayley, Rodger Attending Unavailable Alvaro Smith Primary Care Unavailable MilParis cobb Consulting Unavailable Kayley, Fanwood Admitting Unavailable MilParis cobb Attending Unavailable Alvaro Smith Primary Care Unavailable MilParis Consulting Unavailable Kayley, Rodger Consulting Unavailable Pricilla Dorman Attending Unavailable Alvaro Smith Attending Unavailable Sarah, Alvaro Primary Care Unavailable Kayley, Rodger Attending Unavailable Sarah, Alvaro Referring Unavailable Sarah, Alvaro Primary Care Unavailable Kayley, Fanwood Attending Unavailable Paris Jaeger Attending Unavailable Gonzales Martinez Attending Unavailable Kayley, Rodger Referring Unavailable Kaylye, Rodger Attending Unavailable Kayley, Fanwood Referring Unavailable Kayley, Fanwood Attending Unavailable Sarah, Alvaro Referring Unavailable Kayley, Rodger Attending Unavailable Sarah, Alvaro Referring Unavailable Kayley, Rodger Attending Unavailable Kayley, Fanwood Referring Unavailable Sarah, Alvaro Primary Care Unavailable Kayley, Rodger Attending Unavailable Kayley, Rodger Attending Unavailable Kayley, Fanwood Referring Unavailable Sarah, Alvaro Primary Care Unavailable Gonzales Martinez Attending Unavailable Kayley, Rodger Attending Unavailable Sarah, Alvaro Referring Unavailable Sarah, Alvaro Primary Care Unavailable Kayley, Rodger Attending Unavailable Kayley, Fanwood Referring Unavailable Sarah, Alvaro Primary Care Unavailable Kayley, Rodger Attending Unavailable Kayley, Fanwood Referring Unavailable PROBLEMS PROBLEMS DATE TYPE CONDITION / CODE ATTENDING STATUS SOURCE Unknown I25.119 - Atherosclerotic Kayley, Rodger Active [place] [facility] [place] [facility] [place] [facility] coronary artery with Hospital unspecified angina Repository pectoris / I25.119(ICD-10) Unknown E78.00 - Pure Kayley, Fanwood Active [facility] hypercholesterolemia, Community unspecified / Hospital E78.00(ICD-10) Repository Unknown Z95.5 - Presence of Kayley, Fanwood Active [facility] coronary angioplasty Community implant and graft / Hospital Z95.5(ICD-10) Repository Unknown E78.0 - Pure Kayley, Rodger Active [facility] hypercholesterolemia / Community E78.0(ICD-10) Hospital Repository Unknown I10 - Essential (primary) Kayley, Rodger Active [facility] hypertension / Community I10(ICD-10) Hospital Repository Unknown I25.10 - Atherosclerotic Kayley, Rodger Active [facility] [place] [facility] [place] [facility] coronary artery without Hospital angina pectoris / Repository I25.10(ICD-10) Unknown Z12.5 - Encounter for Sarah Alvaro Active [facility] screening for malignant Community neoplasm of prostate / Hospital Z12.5(ICD-10) Repository Unknown I97.790 - Other Rodger Newell Active [facility] intraoperative cardiac Community functional disturbances Hospital during cardiac surgery / Repository I97.790(ICD-10) Unknown R94.31 - Abnormal Kayley, Fanwood Active [facility] electrocardiogram [ECG] Community [EKG] / R94.31(ICD-10) Hospital Repository Unknown R07.9 - Chest pain, KayleyDerick mezaril Active [facility] unspecified / Community R07.9(ICD-10) Hospital Repository Unknown E78.5 - Hyperlipidemia, KayleyDerick mezaril Active [facility] unspecified / Community E78.5(ICD-10) Hospital Repository Unknown E66.9 - Obesity, KayleyDerick mezaril Active [place] [facility] unspecified / Community E66.9(ICD-10) Hospital Repository PROCEDURES PROCEDURES No Procedure Records FoundRESULTS RESULTS CHEST PA AND LATERAL Observed: 03/08/2018 Status: F Source: JT 4:20 PM [facility] REPOSITORY [facility] Imaging Services [address] [place] [id number] Chest PA and Lateral MR#: [id number] Acct: [id number] Name: ALVARO HALL Rep #: [id number] : 1950 M 67 From: Mg Braden MD PCP: Alvaro Smith DO Status: REG CLI Study: Chest PA and Lateral Date of Exam: 03/08/18 Exam# [id number] Ordering Dr: Rodger Newell MD STUDY: X-RAY CHEST REASON FOR EXAM: Male, 67 years old. Chest pain. TECHNIQUE: Frontal and lateral views of the chest. COMPARISON: 02/26/2017. FINDINGS: The lungs are clear and expanded. There is no demonstrated pleural abnormality. Normal size heart. Normal mediastinum and addis. Normal visualized pulmonary arteries. Normal visualized aortic arch and descending thoracic aorta. Normal visualized thoracic spine. Normal visualized ribs, clavicles, and shoulders. There is no demonstrated abnormality of the visualized soft tissue structures of the upper abdomen. RAD/Chest PA and Lateral IMPRESSION: Normal x-ray examination of the chest. Electronically Signed: Mg Braden MD at 0:00 EST , Service support , CC: Rodger Newell MD; Alvaro Smith DO Marine Designer: Signed CARDIOLOGY VISIT Observed: 03/08/2018 Status: F Source: [place] REPORT 3:58 PM [facility] REPOSITORY [facility] [address] [place] [address]. [address] [place] [address] OFFICE VISIT Date of Service: 03/08/18 MR#: [id number] Acct: [id number] Name: ALVARO HALL Rep #: [id number] : 1950 Provider: Rodger Newell MD Age/Sex: 67/M Location: [facility] Status: Signed HPI HPI Chief Complaint: Follow up Details: ALVARO HALL, is a 67 M who presents to the office today for a follow up visit. He is a pleasant gentleman with a history of coronary artery disease. He had initially undergone a current cardiac catheterization for an abnormal office evaluation it demonstrated a high-grade stenosis noted in the proximal diagonal vessel of approximately 90%. The mid left anterior descending artery had a 50% stenosis of the circumflex artery had a 50% stenosis in the right coronary artery had a complex 80% stenosis. He underwent angioplasty and stenting of the first diagonal vessel. He was brought back and then underwent complex stenting of the mid right coronary artery placing a 3.0 30 mm drug-eluting stent in the mid right coronary artery, a 3.0 15 mm resolute drug-eluting stent in the distal right coronary artery and a 2.25 mm 26 cm drug-eluting stent in the posterodescending vessel. The right posterolateral vein was angioplastied using a 2.5 mm balloon. He had previously undergone a 2.25 mm 14 drug-eluting stent in the proximal diagonal vessel. He says that he has been doing quite well since going home he has had occasional chest discomfort when he exerts himself especially in the cold.. He does not have the exercise capacity that he had before. He has been exercising but not to a high grade. You do remember however that he underwent stress testing in December 2017 where he exercised to 10.1 metabolic equivalents without any obvious angina. He has not had any jovanni syncope and no claudication. His physical exam today demonstrates clear lung encinas regular rate and rhythm no pedal edema his blood pressure is under excellent control. Intake Vital Signs03/08/18 Height 5 ft 6 in 03/08/18 Weight: 190 lb 03/08/18 Body Mass Index (BMI) 30.7 03/08/18 Blood Pressure 108/62 03/08/18 Respiratory Rate 16 03/08/18 Pulse Rate 76 Intake Visit Reasons: 1 M FU Allergies ticagrelor [From Brilinta] Adverse Reaction (Verified 03/08/18 15:10) Orthopnea Medications clopidogrel 75 mg tablet 75 mg PO QDAY #90 tab 04/10/17 [Rx Confirmed 02/01/18] tamsulosin 0.4 mg capsule 0.4 mg PO DAILY 02/01/18 [History Confirmed 02/01/18] aspirin 81 mg tablet,delayed release 81 mg PO QDAY #90 tab 03/06/18 [Rx] metoprolol tartrate 25 mg tablet 25 mg PO BID #180 tab 03/06/18 [Rx] pravastatin 40 mg tablet 40 mg PO QHS #90 tab 03/06/18 [Rx] [facility] Medical History Atherosclerosis of coronary artery [place] heart with angina pectoris (Chronic) Hyperlipidemia (Chronic) Obesity (BMI 30-39.9) (Chronic) Surgical History History of coronary artery stent placement (Resolved 02/26/17) History of left heart catheterization (LHC) (Chronic 02/26/17) Family History Father CAD (coronary artery disease) CABG age 62 Social History Smoking Status: Never smoker alcohol intake: current alcohol intake frequency: holidays/special occasions only caffeine: Yes ROS Const Const: Negative for fatigue, weakness, difficulty sleeping, frequent falls, excessive sweating or headache(s) Eyes Eyes: Negative for loss of peripheral vision, transient loss of vision, blurry vision, tunnel vision or double vision ENT ENT: Negative for headache(s), dizziness, Nosebleed/epistaxis or balance problems Cardio Chest Pain: Yes (Chest pain when he's out in the cold doing any activity) Character: other (burning) Location: mid sternal, left chest, right chest Palpitations: No Edema: None Muscle aches with walking: None Resp Respiratory: Negative for SOB with activity, SOB at rest, SOB orthopnea\SOB lying down, paroxysmal nocturnal dyspnea or Cough GI GI: Negative nausea, heartburn, black,tarry stools or vomiting : Negative for hematuria Musc Musc: Negative for balance problems, muscle aches/ myalgia, muscle weakness or joint pain Skin Skin: Negative non-healing lesions, unusual bruising or rash Neuro Neuro: Negative for weakness, frequent falls, headache(s), blurry vision, double vision, dizziness, lightheadedness, orthostatic symptoms, near syncope, syncope or lack of coordination Juancarlos Hematologic/Lymphatic: Negative for easy bruising or easy bleeding Endo Endo: Negative for fatigue, excessive sweating or increased thirst/drinking Psych Psych: Negative for anxiety or depression Allergy Allergy/Immunology: Negative for hives, Negative for rash Cardiology Exam Const Appearance: cooperative, healthy appearing, well developed, well groomed and no acute distress Nutritional Appearance: well nourished and average body habitus Orientation: alert, awake and oriented x3 Head Head: normal to inspection, normocephalic and atraumatic Ears: hearing grossly normal bilaterally and external ears normal Nose: external nose normal, nasal mucous membranes and turbinates normal, nares normal, septum normal, no nasal discharge Face and Sinus: face symmetric Mouth: oral mucosae normal, tongue normal, oropharynx normal and moist mucous membranes Teeth and gingiva: dentition normal Throat: posterior oropharynx normal, tonsils normal and uvula midline Eyes General: appearance normal, both eyes and all related structures Eyelids: eyelids normal Conjunctivae: conjunctivae normal Pupils: PERRL, normal by confrontation and accommodation normal EOM: EOM intact bilaterally Neck Neck: normal visual inspection, trachea midline and no JVD JVD: +5 Carotids: normal carotid upstroke and bounding pulses Chest Chest inspection: normal inspection of the chest, symmetric chest movement and normal respiratory effort Auscultation: Bilateral: Clear to Auscultation Cardio Palpation: normal PMI Rate: regular rate Rhythm: regular rhythm Heart sounds: S1 normal, S2 normal and normal, physiologic split S2; negative rub, gallop or murmur GI GI: normal to inspection, soft, no hepatosplenomegaly and bowel sounds present Neuro General: alert, awake, oriented x3, no focal sensory deficit, gait normal and moves all extremities Skin Skin: no rashes or lesions noted Extremities Pulses: Normal: Right Femoral Pulse, Left Femoral Pulse, Right Dorsalis Pedis Pulse, Left Dorsalis Pedis Pulse, Right Posterior Tibial Pulse, Left Posterior Tibial Pulse, Right Radial Pulse, Left Radial Pulse Lower Extremity Edema: None: Bilateral Musculoskel Musculoskeletal: No joint tenderness Psych Psychological: normal affect Assessment AND Plan 1. Atherosclerosis of coronary artery of [place] heart with angina pectoris I25.119 PCI-PARTH-Mid RCA w/ 3.0 x 30 mm and 3.0 x 15 mm Resolute Integrity Stent, [id number] RCA into the RPDA w/ a Resolute Integrity 2.25 x 26 mm and POBA-Ostial and Prox RBLV 04/03/17 PCI/PARTH-ostial D2 w/ Resolute Integrity 2.25 x 14 mm 02/26/17 Plan He does have a history of atherosclerotic cardiovascular disease. I went through his history as well as his recent angioplasties extensively with him. There was some residual disease noted in the right coronary artery. He says that the isosorbide did not make much of a difference in the Ranexa definitely did not make any difference. His symptoms appear to be present only with cold. He did not tolerate amlodipine due to low blood pressure and increasing his beta-alex made him more bradycardic. I did suggest to him that the alternatives are either continuous medical management as we are doing or a repeat cardiac catheterization to assess his anatomy and to guide therapy. I did suggested to him that this will be the shortest way of knowing what is going on. He would like to schedule this in the next few weeks. He would continue on his aspirin his clopidogrel and his dose of beta-alex at this time his Ranexa can be discontinued. Orders Orders: 2. History of coronary artery stent placement Z95.5 PCI-PARTH-Mid RCA w/ 3.0 x 30 mm and 3.0 x 15 mm Resolute Integrity Stent, [id number] RCA into the RPDA w/ a Resolute Integrity 2.25 x 26 mm and POBA-Ostial and Prox RBLV 04/03/17 PCI/PARTH-ostial D2 w/ Resolute Integrity 2.25 x 14 mm 02/26/17 Plan He does have multiple stents placed as above and this will be reevaluated at this next catheterization. 3. Pure hypercholesterolemia E78.00 Plan He does have a history of hyperlipidemia and continues with high intensity statin. Repeat lipid profile will be obtained. Thank you for allowing me to participate in the care of your patient. Please don't hesitate to call if any issues arise Orders Orders: Plan Detail Other Orders Orders: Other Medications Discontinued: Follow Up 6 Months (band and cuff cutter) Coding Level of Care Code Off vis,est,level 4 Diagnoses Atherosclerosis of coronary artery of [place] heart with angina pectoris I25.119 History of coronary artery stent placement Z95.5 Pure hypercholesterolemia E78.00 Hyperlipidemia type: pure hypercholesterolemia Coding Level of Care Code Off vis,est,level 4 Diagnoses Atherosclerosis of coronary artery of [place] heart with angina pectoris I25.119 History of coronary artery stent placement Z95.5 Pure hypercholesterolemia E78.00 Hyperlipidemia type: pure hypercholesterolemia Supplemental Info Supplemental Information Labs LDL Cholesterol 65 mg/dL (0-130) 08/02/17 HDL Cholesterol 42 mg/dL (40-) 08/02/17 Triglycerides 60 mg/dL (-199) 08/02/17 VLDL Cholesterol 12 mg/dL (5-40) 08/02/17 Diagnostics Electrocardiogram 04/05/17 Echocardiogram 04/03/17 Stress Test Nuclear Medicine 08/16/17 Stress Test 12/31/17 03/08/18 4299 <Electronically signed by Rodger Newell MD> Date Rodger Newell MD Cosigner Signature: Date (if applicable) CC: Alvaro Smith DO 12 LEAD EKG PERFORMED Observed: 03/08/2018 Status: F Source: JT BY [facility] 3:58 PM [facility] REPOSITORY [facility] [address] [place] [address] 12 Lead EKG performed by [facility] 03/08/18 1557 MR#: [id number] Acct: [id number] Name: ALVARO HALL P Rep #: [id number] : 1950 67 From: Rodger Newell MD Attending Dr: Rodger Newell MD Status: DEP AMB Ordering Dr: Rodger Newell MD Date: 03/08/18 Location: [facility] Sex: M C Admitted: BMS/12 Lead EKG performed by [facility] ECG Report Interpretation Sinus Rhythm Low voltage in precordial leads. ABNORMAL Electronically signed on 03/12/2018 at 13:31 by Rodger Newlel [employer] Software Version [id number] 03/12/18 1334 Date Rodger Newell MD CC: Alvaor Smith DO Date Dictated: 03/08/18 1557 Date Transcribed: 03/08/181556 Marine Designer: CO Signed CARDIOLOGY VISIT Observed: 02/01/2018 Status: F Source: JT REPORT 1:51 PM [facility] REPOSITORY [facility] [address] [place] [address] OFFICE VISIT Date of Service: 02/01/18 MR#: [id number] Acct: [id number] Name: ALVARO HALL P Rep #: [id number] : 1950 Provider: Rodger Newell MD Age/Sex: 67/M Location: [facility] Status: Signed HPI [facility] Chief Complaint: Follow up Details: ALVARO HALL, is a 67 M who presents to the office today for a follow up visit. He is a pleasant gentleman with a history of coronary artery disease. He had initially undergone a current cardiac catheterization for an abnormal office evaluation it demonstrated a high-grade stenosis noted in the proximal diagonal vessel of approximately 90%. The mid left anterior descending artery had a 50% stenosis of the circumflex artery had a 50% stenosis in the right coronary artery had a complex 80% stenosis. He underwent angioplasty and stenting of the first diagonal vessel. He was brought back and then underwent complex stenting of the mid right coronary artery placing a 3.0 30 mm drug-eluting stent in the mid right coronary artery, a 3.0 15 mm resolute drug-eluting stent in the distal right coronary artery and a 2.25 mm 26 cm drug-eluting stent in the posterolateral vessel. He had previously undergone a 2.25 mm 14 drug-eluting stent in the proximal diagonal vessel. He says that he has been doing quite well since going home he has had occasional chest discomfort when he exerts himself.. He does not have the exercise capacity that he had before. He has been exercising but not to a high grade. He has not had any jovanni syncope and no claudication. His physical exam today demonstrates clear lung encinas regular rate and rhythm no pedal edema his blood pressure is under excellent control. Intake Vital Signs02/01/18 Height 5 ft 6 in 02/01/18 Weight: 192 lb 02/01/18 Body Mass Index (BMI) 30.9 02/01/18 Blood Pressure 100/60 02/01/18 Respiratory Rate 16 02/01/18 Pulse Rate 70 Intake Visit Reasons: 6 M FU (we r/s from 01-25) Allergies ticagrelor [From Brilinta] Adverse Reaction (Verified 02/01/18 12:59) Orthopnea Medications Metoprolol Tartrate [Lopressor (beta alex)] 25 mg PO BID #120 tab 02/27/17 [Rx Confirmed 02/01/18] Pravastatin [Pravachol] 40 mg PO QHS #90 tab 02/27/17 [Rx Confirmed 02/01/18] clopidogrel 75 mg tablet 75 mg PO QDAY #90 tab 04/10/17 [Rx Confirmed 02/01/18] aspirin 81 mg tablet,delayed release 81 mg PO QDAY #90 tab 12/03/17 [Rx Confirmed 02/01/18] ranolazine ER 500 mg tablet,extended release,12 hr 500 mg PO BID #60 tab 02/01/18 [Rx Confirmed 02/01/18] tamsulosin 0.4 mg capsule 0.4 mg PO DAILY 02/01/18 [History Confirmed 02/01/18] PFSH Medical History Atherosclerosis of coronary artery of [place] heart with angina pectoris (Chronic) Hyperlipidemia (Chronic) Obesity (BMI 30-39.9) (Chronic) Surgical History History of coronary artery stent placement (Resolved 02/26/17) History of left heart catheterization (LHC) (Chronic 02/26/17) Family History Father CAD (coronary artery disease) CABG age 62 Social History Smoking Status: Never smoker alcohol intake: current alcohol intake frequency: holidays/special occasions only caffeine: Yes ROS Const Const: Negative for fatigue, weakness, difficulty sleeping, frequent falls, excessive sweating or headache(s) Eyes Eyes: Negative for loss of peripheral vision, transient loss of vision, blurry vision, tunnel vision or double vision ENT ENT: Positive for other (C/O swimmers ear in the left ear. Sounds like there is water); negative for headache(s), dizziness, Nosebleed/epistaxis or balance problems Cardio Chest Pain: Yes (with exertion and when he is out in the cold) Palpitations: No Edema: None Muscle aches with walking: None Additional Details: Denies change in chest pain since stopping imdur Resp Respiratory: Negative for SOB with activity, SOB at rest, SOB orthopnea\SOB lying down, paroxysmal nocturnal dyspnea or Cough GI GI: Negative nausea, heartburn, black,tarry stools or vomiting : Negative for hematuria Musc Musc: Negative for balance problems, muscle aches/ myalgia, muscle weakness or joint pain Skin Skin: Negative non-healing lesions, unusual bruising or rash Neuro Neuro: Negative for weakness, frequent falls, headache(s), blurry vision, double vision, dizziness, lightheadedness, orthostatic symptoms, near syncope, syncope or lack of coordination Juancarlos Hematologic/Lymphatic: Negative for easy bruising or easy bleeding Endo Endo: Negative for fatigue, excessive sweating or increased thirst/drinking Psych Psych: Negative for anxiety or depression Allergy Allergy/Immunology: Negative for hives, Negative for rash Cardiology Exam Const Appearance: cooperative, healthy appearing, well developed, well groomed and no acute distress Nutritional Appearance: well nourished and average body habitus Orientation: alert, awake and oriented x3 Head Head: normal to inspection, normocephalic and atraumatic Ears: hearing grossly normal bilaterally and external ears normal Nose: external nose normal, nasal mucous membranes and turbinates normal, nares normal, septum normal, no nasal discharge Face and Sinus: face symmetric Mouth: oral mucosae normal, tongue normal, oropharynx normal and moist mucous membranes Teeth and gingiva: dentition normal Throat: posterior oropharynx normal, tonsils normal and uvula midline Eyes General: appearance normal, both eyes and all related structures Eyelids: eyelids normal Conjunctivae: conjunctivae normal Pupils: PERRL, normal by confrontation and accommodation normal EOM: EOM intact bilaterally Neck Neck: normal visual inspection, trachea midline and no JVD JVD: +5 Carotids: normal carotid upstroke and bounding pulses Chest Chest inspection: normal inspection of the chest, symmetric chest movement and normal respiratory effort Auscultation: Bilateral: Clear to Auscultation Cardio Palpation: normal PMI Rate: regular rate Rhythm: regular rhythm Heart sounds: S1 normal, S2 normal and normal, physiologic split S2; negative rub, gallop or murmur GI GI: normal to inspection, soft, no hepatosplenomegaly and bowel sounds present Neuro General: alert, awake, oriented x3, no focal sensory deficit, gait normal and moves all extremities Skin Skin: no rashes or lesions noted Extremities Pulses: Normal: Right Femoral Pulse, Left Femoral Pulse, Right Dorsalis Pedis Pulse, Left Dorsalis Pedis Pulse, Right Posterior Tibial Pulse, Left Posterior Tibial Pulse, Right Radial Pulse, Left Radial Pulse Lower Extremity Edema: None: Bilateral Musculoskel Musculoskeletal: No joint tenderness Psych Psychological: normal affect Assessment AND Plan 1. 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 My recommendation at this time would be to put him on Ranexa 500 mg twice a day for 1 month. I will see him again and if at that time he is still having angina we will proceed with a cardiac catheterization. I am hesitant to increase his beta-alex because of his tendency towards bradycardia and he previously did not tolerate amlodipine due to low blood pressure and dizziness and inability to breathe. In addition he has not wanted to be on isosorbide due to issues with his flying. 2. History of coronary artery stent placement Z95.5 PCI-PARTH-Mid RCA w/ 3.0 x 30 mm and 3.0 x 15 mm Resolute Integrity Stent, [id number] RCA into the RPDA w/ a Resolute Integrity 2.25 x 26 mm 04/03/17 PCI/PARTH-ostial D2 w/ Resolute Integrity 2.25 x 14 mm 02/26/17 Plan He is status post multivessel coronary angioplasty and stent placement as noted above. 3. Pure hypercholesterolemia E78.00 Plan He does have a history of hyperlipidemia and is on medium intensity statin at this time. His most recent lipid profile demonstrated total cholesterol 119, LDL of 65, and HDL of 42. Plan Detail Other Medications New: Follow Up 1 Month (band and cuff cutter) Coding Level of Care Code Off vis,est,level 4 Diagnoses Atherosclerosis of coronary artery of [place] heart with angina pectoris I25.119 History of coronary artery stent placement Z95.5 Pure hypercholesterolemia E78.00 Hyperlipidemia type: pure hypercholesterolemia Coding Level of Care Code Off vis,est,level 4 Diagnoses Atherosclerosis of coronary artery of [place] heart with angina pectoris I25.119 History of coronary artery stent placement Z95.5 Pure hypercholesterolemia E78.00 Hyperlipidemia type: pure hypercholesterolemia 02/01/18 1351 <Electronically signed by Rodger Newell MD> Date Rodger Newell MD Cosigner Signature: Date (if applicable) CC: Alvaro Smith DO STRESS REPORT Observed: 12/31/2017 Status: F Source: JT 5:05 PM [facility] REPOSITORY [facility] Cardiovascular Services [address] [place] [address] MR#: [id number] Acct: [id number] Name: ALVARO HALL Rep #: [id number] : 1950 67 From: Rodger Newell MD Primary Care: Alvaro Smith DO Status: REG CLI Ordering Dr: Holli: Rosalino Murphy Stress Test Report Exercise stress test. 67-year-old man with a history of coronary artery disease. Stress protocol: Resting EKG demonstrates normal sinus rhythm with a rate of 68 bpm normal intervals and noted resting blood pressure 114/76 mmHg. The patient exercised according to regular Surjit protocol for a total duration of 9 minutes. The maximum heart rate attained was 137 bpm which was 90% of maximum predicted heart rate the maximum workload was 10.1 metabolic equivalents. The patient maintained sinus rhythm throughout the recording. At rest there were no ST or T wave changes noted suggest ischemia peak exercise upsloping ST changes only were noted with no meet the criteria for ischemia. No obvious clinical angina was noted. The resting blood pressure 114/76 with a peak blood pressure 156/70 mmHg. Conclusion: Exercise stress test with no EKG criteria for ischemia at a high workload. No arrhythmias noted. No obvious angina noted. 12/31/171704 <Electronically signed by Rodger Newell MD> Date Rodger Newell MD CC: Rodger Newell MD; Alvaro Smith DO Date Dictated: 12/31/171702 Date Transcribed: 12/31/171702 Marine Designer: CO Signed CARDIOLOGY VISIT Observed: 10/03/2017 Status: F Source: JT REPORT 12:12 PM [facility] REPOSITORY [facility] [address] [place] [address] OFFICE VISIT Date of Service: 10/03/17 MR#: [id number] Acct: [id number] Name: ALVARO HALL Rep #: [id number] : 1950 Provider: Rodger Newell MD Age/Sex: 67/M Location: [facility] [place] Status: Signed HPI HPI Chief Complaint: Follow up Details: ALVARO HALL, is a 67 M who presents to the office today for a follow up visit. He is a pleasant gentleman with a history of coronary artery disease. He had initially undergone a current cardiac catheterization for an abnormal office evaluation it demonstrated a high-grade stenosis noted in the proximal diagonal vessel of approximately 90%. The mid left anterior descending artery had a 50% stenosis of the circumflex artery had a 50% stenosis in the right coronary artery had a complex 80% stenosis. He underwent angioplasty and stenting of the first diagonal vessel. He was brought back and then underwent complex stenting of the mid right coronary artery placing a 3.0 30 mm drug-eluting stent in the mid right coronary artery, a 3.0 15 mm resolute drug-eluting stent in the distal right coronary artery and a 2.25 mm 26 cm drug-eluting stent in the posterolateral vessel. He had previously undergone a 2.25 mm 14 drug-eluting stent in the proximal diagonal vessel. He says that he has been doing quite well since going home he has had occasional chest discomfort when he exerts himself or is going to bed. He does not have the exercise capacity that he had before. He has been exercising but not to a high grade. 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 He has not had any jovanni syncope and no claudication. His physical exam today demonstrates clear lung encinas regular rate and rhythm no pedal edema his blood pressure is under excellent control. 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 [employer] Required: No Is patient in pain?: No Allergies ticagrelor [From Brilinta] Adverse Reaction (Verified 10/03/17 11:31) Orthopnea Medications Metoprolol Tartrate [Lopressor (beta alex)] 25 mg PO BID #120 tab 02/27/17 [Rx Confirmed 10/03/17] Pravastatin [Pravachol] 40 mg PO QHS #90 tab 02/27/17 [Rx Confirmed 10/03/17] aspirin 81 mg tablet,delayed release 81 mg PO QDAY #90 tab 02/27/17 [Rx Confirmed 10/03/17] clopidogrel 75 mg tablet 75 mg PO QDAY #90 tab 04/10/17 [Rx Confirmed 10/03/17] famotidine 40 mg tablet 40 mg PO QHS #60 tab 08/02/17 [Rx Confirmed 10/03/17] isosorbide mononitrate ER 60 mg tablet,extended release 24 hr 60 mg PO QAM #90 tab 08/02/17 [Rx Confirmed 10/03/17] PFS Medical History Hyperlipidemia (Chronic) Atherosclerosis of coronary artery of [place] heart without angina pectoris (Acute) Obesity (BMI 30-39.9) (Chronic) Surgical History History of coronary artery stent placement (Chronic 02/26/17) History of left heart catheterization (LHC) (Chronic 02/26/17) Family History Father CAD (coronary artery disease) CABG age 62 Social History Smoking Status: Never smoker alcohol intake: current alcohol intake frequency: holidays/special occasions only caffeine: Yes ROS Const Const: Positive for other (had normal stress test 08/16/17. 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.); negative for fatigue, weakness, body ache, fever(s), headache(s), chills, frequent falls, night sweats, daytime sleepiness, difficulty sleeping, excessive sweating, weight gain, weight loss, increased appetite, poor appetite or anorexia Eyes Eyes: Negative for blind spots, loss of peripheral vision, transient loss of vision, blurry vision, change in vision, double vision, floaters, tunnel vision or other ENT ENT: Negative for headache(s), dizziness, hearing loss, tinnitus, Nosebleed/epistaxis, balance problems, post nasal drip, lip swelling, tongue swelling, bleeding gums, hoarseness, neck pain, dry mouth or other Cardio Chest Pain: No Resp Respiratory: Positive for other; negative for SOB with activity, SOB at rest, SOB orthopnea\SOB lying down, Coughing up blood/hemoptysis, chest congestion, pain on inspiration, snoring, stridor, wheezing, crackles or paroxysmal nocturnal dyspnea GI GI: Negative nausea, vomiting, heartburn, constipation, belching, bloating, cramping, vomiting blood/hematemesis, bright, red blood in stools, black,tarry stools, loose stools, Difficulty Swallowing or other : Negative for hematuria, frequent nighttime urination/ nocturia, erectile dysfunction or abnormal vaginal bleeding Musc Musc: Negative for balance problems, muscle aches/ myalgia, muscle weakness or joint pain Skin Skin: Negative redness, non-healing lesions, rash, unusual bruising, skin ulcer, wounds, jaundice or other Neuro Neuro: Negative for weakness, headache(s), frequent falls, blurry vision, double vision, dizziness, lightheadedness, near syncope, syncope, orthostatic symptoms, confusion, memory loss, restless legs, vertigo, seizures, lack of coordination or other Juancarlos Hematologic/Lymphatic: Negative for easy bleeding, easy bruising, enlarged lymph nodes or other Endo Endo: Negative for fatigue, excessive sweating, cold intolerance, heat intolerance, flushing, increased thirst/drinking, increased hunger, hair loss, hair growth or other Psych Psych: Negative for anxiety, depression, thoughts of harming anyone, thoughts of harming yourself, visual hallucinations, panic attacks or audible hallucinations Allergy Allergy/Immunology: Negative for lip swelling, Negative for tongue swelling, Negative for rash, Negative for throat swelling, Negative for hives Cardiology Exam Const Appearance: cooperative, healthy appearing, well developed, well groomed and no acute distress Nutritional Appearance: well nourished and average body habitus Orientation: alert, awake and oriented x3 Head Head: normal to inspection, normocephalic and atraumatic Ears: hearing grossly normal bilaterally and external ears normal Nose: external nose normal, nasal mucous membranes and turbinates normal, nares normal, septum normal, no nasal discharge Face and Sinus: face symmetric Mouth: oral mucosae normal, tongue normal, oropharynx normal and moist mucous membranes Teeth and gingiva: dentition normal Throat: posterior oropharynx normal, tonsils normal and uvula midline Eyes General: appearance normal, both eyes and all related structures Eyelids: eyelids normal Conjunctivae: conjunctivae normal Pupils: PERRL, normal by confrontation and accommodation normal EOM: EOM intact bilaterally Neck Neck: normal visual inspection, trachea midline and no JVD JVD: +5 Carotids: normal carotid upstroke and bounding pulses Chest Chest inspection: normal inspection of the chest, symmetric chest movement and normal respiratory effort Auscultation: Bilateral: Clear to Auscultation Cardio Palpation: normal PMI Rate: regular rate Rhythm: regular rhythm Heart sounds: S1 normal, S2 normal and normal, physiologic split S2; negative rub, gallop or murmur GI GI: normal to inspection, soft, no hepatosplenomegaly and bowel sounds present Neuro General: alert, awake, oriented x3, no focal sensory deficit, gait normal and moves all extremities Skin Skin: no rashes or lesions noted Extremities Pulses: Normal: Right Femoral Pulse, Left Femoral Pulse, Right Dorsalis Pedis Pulse, Left Dorsalis Pedis Pulse, Right Posterior Tibial Pulse, Left Posterior Tibial Pulse, Right Radial Pulse, Left Radial Pulse Lower Extremity Edema: None: Bilateral Musculoskel Musculoskeletal: No joint tenderness Psych Psychological: normal affect Assessment AND Plan 1. Atherosclerosis of [place] coronary artery of [place] heart without angina pectoris I25.10 Plan He is status post multivessel angioplasty involving the diagonal vessel as well as the right coronary artery. My recommendation at this time will be for him to start amlodipine 5 mg a day. This may take care of any residual angina. He should call us in about 2 weeks to let us know how he is doing. The other alternative would also be to increase his beta-alex to 50 mg twice a day but I am hesitant because of his resting bradycardia. He does not want to take any Ranexa due to the cost. O 2. Pure hypercholesterolemia E78.00 Plan The plan is for him to continue with aggressive risk factor modification. His most recent lipid profile demonstrated total cholesterol 119, HDL 42 and LDL of 65. Coding Level of Care Code Off vis,est,level 4 Diagnoses Atherosclerosis of [place] coronary artery of [place] heart without angina pectoris I25.10 Coronary Disease-Associated Artery/Lesion type: [place] artery Pure hypercholesterolemia E78.00 Hyperlipidemia type: pure hypercholesterolemia Coding Level of Care Code Off vis,est,level 4 Diagnoses Atherosclerosis of [place] coronary artery of [place] heart without angina pectoris I25.10 Coronary Disease-Associated Artery/Lesion type: [place] artery Pure hypercholesterolemia E78.00 Hyperlipidemia type: pure hypercholesterolemia 10/03/17 1212 <Electronically signed by Rodger Newell MD> Date Rodger Newell MD Cosigner Signature: Date (if applicable) CC: Alvaro KempSarah STRESS REPORT Observed: 08/16/2017 Status: F Source: [place] 9:48 AM [facility] REPOSITORY [facility] Cardiovascular Services [address] [place] [address] MR#: [id number] Acct: [id number] Name: ALVARO HALL Rep #: [id number] : 1950 67 From: Gonzales Martinez MD Primary Care: Alvaro Smith DO Status: REG CLI Ordering Dr: Holli: Rosalino Murphy Stress Test Report Date: 08/16/2017 Procedure: Exercise tolerance test/imaging study Indications: CAD; status post PCI Consent: Per the patient Procedure: The patient exercised on a Surjit protocol for 9 minutes completing Stage III achieving a peak heart rate of 130 bpm (86 % predicted maximal heart rate) with a peak blood pressure 132/70 mmHg and a peak MET capacity of 10 METs. The baseline ECG demonstrated sinus bradycardia; nonspecific T-wave abnormality. The peak exercise ECG demonstrated somatic/motion artifact with no obvious ECG changes. There was a rare PVC during recovery. The functional capacity was considered good. There was vague chest discomfort at peak exercise with spontaneous resolution less than 1 minute in recovery. The examination was discontinued secondary to dyspnea and leg discomfort. Impression: 1. Technically adequate (percent predicted maximal heart rate greater than 85%) exercise tolerance test 2. Peak exercise ECG with somatic/motion artifact with no obvious ECG changes 3. There was a rare PVC during recovery. 4. Nuclear images pending Myocardial perfusion imaging study: Technique: The patient was injected with 11.2 mCi of technetium 99m Cardiolite and subsequently rest SPECT Cardiolite nuclear imaging was obtained in the horizontal long, vertical long, and short axis views. The patient exercised on a Surjit protocol for 9 minutes completing Stage III achieving a peak heart rate of 130 bpm (86 % predicted maximal heart rate) with a peak blood pressure 132/70 mmHg and a peak MET capacity of 10 METs. The patient was injected with 33.9 mCi of technetium 99m Cardiolite and subsequently stress SPECT Cardiolite nuclear imaging was obtained in the horizontal long, vertical long, and short axis views. A gated Cardiolite study at peak stress was obtained. Interpretation: Rest and stress SPECT Cardiolite nuclear imaging status post realignment, normalization, and attenuation correction, demonstrates the appearance of relative uniform tracer uptake and myocardial perfusion appearing within normal limits. There is end systolic thickening and brightening. The gated Cardiolite study demonstrates myocardial thickening and inward wall motion. The reported LVEF is 79 %. Impression: 1. Rest and stress SPECT Cardiolite nuclear imaging demonstrate relative uniform tracer uptake and myocardial perfusion appearing within normal limits. 2. The gated Cardiolite study reports an LVEF of 79 %. This note was generated with Ushahidiation software. It may contain incorrect words, spelling, and punctuation that were not noted in checking the note before signing. 08/16/17947 <Electronically signed by Gonzales Martinez MD> Date Gonzales Martinez MD CC: Rodger Newell MD; Alvaro Smith DO Date Dictated: 08/16/17944 Date Transcribed: 08/16/17944 Marine Designer: PM Signed LIVER PROFILE Collected: 08/02/2017 Status: F Source: JT 12:09 PM [facility] REPOSITORY TYPE CODE TESTS RESULT OUT OF RANGE REFERENCE UNITS LAB L501.1500 6.4-8.2 g/dL Normal T PROT 7.3 LAB L501.1800 3.2-5.0 g/dL Normal ALB 3.7 LAB L501.1950 2.2-4.2 g/dL Normal GLOB 3.6 LAB L501.4100 15-37 U/L Normal AST 16 LAB L501.4305 45-117 U/L Normal ALK P 64 LAB L501.4405 16-61 U/L Normal ALT 29 LAB L501.4600 0.20-1.00 mg/dL Normal T BILI 0.50 LAB L501.4700 0.00-0.30 mg/dL Normal D BILI 0.14 Performed By: #### L500.3400, L500.4100 #### [facility] [address] [place], [place], [address] LIPID PROFILE Collected: 08/02/2017 Status: F Source: JT 12:09 PM [facility] REPOSITORY TYPE CODE TESTS RESULT OUT OF RANGE REFERENCE UNITS LAB L501.4900 200 mg/dL Normal CHOL 119 Result Comment: <200 mg/dL Desirable 200-240 mg/dL Borderline >240 mg/dL High Risk LAB L501.5000 mg/dL Normal TRIG 60 Result Comment: The drugs N-Acetylcysteine and Metamizole may falsely depress this assay. Serum Triglycerides Reference Interval Normal <150 mg/dL Borderline high 150 - 199 mg/dL High 200 - 499 mg/dL Very High > or = 500 mg/dL LAB L501.6400 mg/dL Normal HDL 42 Result Comment: The drugs N-Acetylcysteine and Metamizole may falsely depress this assay. Reference Range HDL <40 mg/dL Low HDL Cholesterol HDL >or= 60 mg/dL High HDL Cholesterol LAB L501.6500 0-130 mg/dL Normal LDL 65 LAB L501.6600 5-40 mg/dL Normal VLDL 12 Performed By: #### L500.3400, L500.4100 #### [facility] [address] [place], [place], [address] CARDIOLOGY VISIT Observed: 08/02/2017 Status: F Source: JT REPORT 11:53 AM [facility] REPOSITORY [facility] [address] [place] [address] OFFICE VISIT Date of Service: 08/02/17 MR#: [id number] Acct: [id number] Name: ALVARO HALL Rep #: [id number] : 1950 Provider: Rodger Newell MD Age/Sex: 67/M Location: [facility] Status: Signed HPI HPI Chief Complaint: Follow-up visit. Details: ALVARO HALL, is a 67 M who presents to the office today for a follow-up visit. He is a pleasant gentleman with a history of coronary artery disease. He had initially undergone a current cardiac catheterization for an abnormal office evaluation it demonstrated a high-grade stenosis noted in the proximal diagonal vessel of approximately 90%. The mid left anterior descending artery had a 50% stenosis of the circumflex artery had a 50% stenosis in the right coronary artery had a complex 80% stenosis. He underwent angioplasty and stenting of the first diagonal vessel. He was brought back and then underwent complex stenting of the mid right coronary artery placing a 3.0 30 mm drug-eluting stent in the mid right coronary artery, a 3.0 15 mm resolute drug-eluting stent in the distal right coronary artery and a 2.25 mm 26 cm drug-eluting stent in the posterolateral vessel. He had previously undergone a 2.25 mm 14 drug-eluting stent in the proximal diagonal vessel. He says that he has been doing quite well since going home he has had occasional chest discomfort when he exerts himself or is going to bed. He does not have the exercise capacity that he had before. He has been exercising but not to a high grade. He has not had any jovanni syncope and no claudication. His physical exam today demonstrates clear lung encinas regular rate and rhythm no pedal edema his blood pressure is under excellent control. Intake Vital Signs08/02/17 Height 5 ft 6 in 08/02/17 Weight: 191 lb 08/02/17 Body Mass Index (BMI) 30.8 08/02/17 Blood Pressure 112/64 08/02/17 Blood Pressure Location Lt brachial Intake Visit Reasons: 3 M FU Allergies ticagrelor [From Brilinta] Adverse Reaction (Verified 08/02/17 11:29) Orthopnea Medications Metoprolol Tartrate [Lopressor (beta alex)] 25 mg PO BID #120 tab 02/27/17 [Rx Confirmed 08/02/17] Pravastatin [Pravachol] 40 mg PO QHS #90 tab 02/27/17 [Rx Confirmed 08/02/17] aspirin 81 mg tablet,delayed release 81 mg PO QDAY #90 tab 02/27/17 [Rx Confirmed 08/02/17] clopidogrel 75 mg tablet 75 mg PO QDAY #90 tab 04/10/17 [Rx Confirmed 08/02/17] isosorbide mononitrate ER 60 mg tablet,extended release 24 hr 60 mg PO QAM #90 tab 08/02/17 [Rx Confirmed 08/02/17] ranolazine ER 500 mg tablet,extended release,12 hr 500 mg PO Q12H #180 tab 08/02/17 [Rx Confirmed 08/02/17] Ejection fraction %: 60 to 64 PFSH Medical History Atherosclerosis of coronary artery of [place] heart without angina pectoris (Acute) Obesity (BMI 30-39.9) (Chronic) Surgical History History of coronary artery stent placement (Chronic 02/26/17) History of left heart catheterization (LHC) (Chronic 02/26/17) Family History Father CAD (coronary artery disease) CABG age 62 Social History Smoking Status: Never smoker alcohol intake: current alcohol intake frequency: holidays/special occasions only caffeine: Yes ROS Const Const: Negative for fatigue, weakness, night sweats, excessive sweating, frequent falls, headache(s) or daytime sleepiness Eyes Eyes: Negative for loss of peripheral vision, transient loss of vision, blind spots, double vision or blurry vision ENT ENT: Negative for headache(s), dizziness, balance problems, Nosebleed/epistaxis, tongue swelling or lip swelling Cardio Chest Pain: Yes Frequency: other (occasional chest pain on exertion) Palpitations: No Edema: None Muscle aches with walking: None Resp Respiratory: Positive for SOB with activity; negative for SOB at rest, SOB orthopnea\SOB lying down, Cough or paroxysmal nocturnal dyspnea GI GI: Negative nausea, vomiting, heartburn, black,tarry stools or bright, red blood in stools : Negative for hematuria Musc Musc: Negative for balance problems, muscle aches/ myalgia, muscle weakness or joint pain Skin Skin: Negative non-healing lesions, unusual bruising or rash Neuro Neuro: Negative for weakness, frequent falls, headache(s), double vision, dizziness, lightheadedness, orthostatic symptoms, blurry vision or lack of coordination Juancarlos Hematologic/Lymphatic: Negative for easy bruising or easy bleeding Endo Endo: Negative for fatigue, excessive sweating, cold intolerance, heat intolerance, increased thirst/drinking or hair loss Psych Psych: Negative for anxiety or depression Allergy Allergy/Immunology: Negative for throat swelling, Negative for tongue swelling, Negative for hives, Negative for rash, Negative for lip swelling Cardiology Exam Const Appearance: cooperative, healthy appearing, well developed, well groomed and no acute distress Nutritional Appearance: well nourished and average body habitus Orientation: alert, awake and oriented x3 Head Head: normal to inspection, normocephalic and atraumatic Ears: hearing grossly normal bilaterally and external ears normal Nose: external nose normal, nasal mucous membranes and turbinates normal, nares normal, septum normal, no nasal discharge Face and Sinus: face symmetric Mouth: oral mucosae normal, tongue normal, oropharynx normal and moist mucous membranes Teeth and gingiva: dentition normal Throat: posterior oropharynx normal, tonsils normal and uvula midline Eyes General: appearance normal, both eyes and all related structures Eyelids: eyelids normal Conjunctivae: conjunctivae normal Pupils: PERRL, normal by confrontation and accommodation normal EOM: EOM intact bilaterally Neck Neck: normal visual inspection, trachea midline and no JVD JVD: +5 Carotids: normal carotid upstroke and bounding pulses Chest Chest inspection: normal inspection of the chest, symmetric chest movement and normal respiratory effort Auscultation: Bilateral: Clear to Auscultation Cardio Palpation: normal PMI Rate: regular rate Rhythm: regular rhythm Heart sounds: S1 normal, S2 normal and normal, physiologic split S2; negative rub, gallop or murmur GI GI: normal to inspection, soft, no hepatosplenomegaly and bowel sounds present Neuro General: alert, awake, oriented x3, no focal sensory deficit, gait normal and moves all extremities Skin Skin: no rashes or lesions noted Extremities Pulses: Normal: Right Femoral Pulse, Left Femoral Pulse, Right Dorsalis Pedis Pulse, Left Dorsalis Pedis Pulse, Right Posterior Tibial Pulse, Left Posterior Tibial Pulse, Right Radial Pulse, Left Radial Pulse Lower Extremity Edema: None: Bilateral Musculoskel Musculoskeletal: No joint tenderness Psych Psychological: normal affect Assessment AND Plan 1. History of coronary artery stent placement Z95.5 PARTH of the ostial D2, PARTH of the mid right coronary artery as well as the distal right coronary artery. Plan He is status post multivessel angioplasty involving the diagonal vessel as well as the right coronary artery. My recommendation at this time will be for him to increase his isosorbide to 60 mg a day due to his mild residual angina I would also like to start him on Ranexa 500 mg twice a day and schedule him for an exercise myocardial perfusion stress test in approximately 2 weeks. He should take his medications up to and including the date of the test. Orders Orders: Medications Discontinued: 2. Essential hypertension I10 Plan His blood pressure appears to be under good control at this time and no other medication changes will be made he will remain on the beta-alex. 3. Pure hypercholesterolemia E78.00; E78.0 Plan He is on pravastatin which will be continued for secondary risk factor modification. We will obtain a recent blood work to make sure that he is appropriately risk stratified. Thank you for allowing me to participate in his care. Orders Orders: Plan Detail Other Medications New: isosorbide mononitrate ER swallow whole with glass of water; do not crush60 mg PO QAM /chew /dissolve /cut/break Follow Up 6 Months (band and cuff cutter) Coding Level of Care Code Off vis,est,level 4 Diagnoses History of coronary artery stent placement Z95.5 Essential hypertension I10 Hypertension type: essential hypertension Pure hypercholesterolemia E78.00; E78.0 Hyperlipidemia type: pure hypercholesterolemia Coding Level of Care Code Off vis,est,level 4 Diagnoses History of coronary artery stent placement Z95.5 Essential hypertension I10 Hypertension type: essential hypertension Pure hypercholesterolemia E78.00; E78.0 Hyperlipidemia type: pure hypercholesterolemia 08/02/17 1153 <Electronically signed by Rodger Newell MD> Date Rodger Newell MD Cosigner Signature: Date (if applicable) CC: Alvaro Smith DO CARDIOLOGY VISIT Observed: 04/24/2017 Status: F Source: JT REPORT 1:51 PM [facility] REPOSITORY [facility] [address] [place] [address] OFFICE VISIT Date of Service: 04/24/17 MR#: [id number] Acct: [id number] Name: ALVARO HALL Rep #: [id number] : 1950 Provider: Rodger Newell MD Age/Sex: 66/M Location: [facility] [place] Status: Signed HPI HPI Chief Complaint: Follow-up visit. Details: ALVAOR HLAL, is a 66 M who presents to the office today for a follow-up visit. Is a pleasant gentleman with a history of coronary artery disease. He had initially undergone a current cardiac catheterization for an abnormal office evaluation it demonstrated a high-grade stenosis noted in the proximal diagonal vessel of approximately 90%. The mid left anterior descending artery had a 50% stenosis of the circumflex artery had a 50% stenosis in the right coronary artery had a complex 80% stenosis. He underwent angioplasty and stenting of the first diagonal vessel. He was brought back and then underwent complex stenting of the mid right coronary artery placing a 3.0 30 mm drug-eluting stent in the mid right coronary artery, a 3.0 15 mm resolute drug-eluting stent in the distal right coronary artery and a 2.25 mm 26 cm drug-eluting stent in the posterolateral vessel. He had previously undergone a 2.25 mm 14 drug-eluting stent in the proximal diagonal vessel. He says that he has been doing quite well since going home he has had occasional chest discomfort when he takes in a deep breath occasionally he also gets lightheaded when he stands quickly. As you remember he did have some problems with his prostate and underwent placement on Flomax. He has been exercising but not to a high grade. He has not had any jovanni syncope and no claudication. His physical exam today demonstrates clear lung encinas regular rate and rhythm no pedal edema his blood pressure is under excellent control. Intake Vital Signs04/24/17 Blood Pressure 102/60 04/24/17 Blood Pressure Location Lt brachial 04/24/17 Blood Pressure Position Standing 04/24/17 Respiratory Rate 20 Intake Visit Reasons: 1 M FU post-stent Is patient in pain?: No Allergies ticagrelor [From Brilinta] Adverse Reaction (Verified 04/24/17 13:15) Orthopnea Medications Isosorbide Mononitrate [Imdur] 30 mg PO DAILY #90 tab 02/27/17 [Rx Confirmed 04/24/17] Metoprolol Tartrate [Lopressor (beta alex)] 25 mg PO BID #120 tab 02/27/17 [Rx Confirmed 04/24/17] Pravastatin [Pravachol] 40 mg PO QHS #90 tab 02/27/17 [Rx Confirmed 04/24/17] aspirin 81 mg tablet,delayed release 81 mg PO QDAY #90 tab 02/27/17 [Rx Confirmed 04/24/17] clopidogrel 75 mg tablet 75 mg PO QDAY #90 tab 04/10/17 [Rx Confirmed 04/24/17] tamsulosin 0.4 mg capsule 0.4 mg PO QDAY 04/24/17 [History Confirmed 04/24/17] Ejection fraction %: 60 to 64 PFSH Medical History Atherosclerosis of coronary artery of [place] heart without angina pectoris (Acute) Obesity (BMI 30-39.9) (Chronic) Surgical History History of coronary artery stent placement (Chronic 02/26/17) History of left heart catheterization (LHC) (Chronic 02/26/17) Family History Father CAD (coronary artery disease) CABG age 62 Social History Smoking Status: Never smoker alcohol intake: current alcohol intake frequency: holidays/special occasions only caffeine: Yes ROS Const Const: Positive for other (Lightheaded when stands up suddenly, also after treadmill at [facility]); negative for fatigue, weakness, body ache, fever(s), headache(s), chills, frequent falls, night sweats, daytime sleepiness, difficulty sleeping, excessive sweating, weight gain, weight loss, increased appetite, poor appetite or anorexia Eyes Eyes: Negative for blind spots, loss of peripheral vision, transient loss of vision, blurry vision, change in vision, double vision, floaters, tunnel vision or other ENT ENT: Negative for headache(s), dizziness, hearing loss, tinnitus, Nosebleed/epistaxis, balance problems, post nasal drip, lip swelling, tongue swelling, bleeding gums, hoarseness, neck pain, dry mouth or other Cardio Chest Pain: Yes (Just occasional discomfort with taking a deep breath, also with activity) Frequency: more than once a day Character: tightness Onset: exercise, other (with deep breath) Location: mid sternal Duration: brief Palpitations: No Edema: None Muscle aches with walking: None Resp Respiratory: Negative for SOB with activity, SOB at rest, SOB orthopnea\SOB lying down, Coughing up blood/hemoptysis, chest congestion, pain on inspiration, snoring, stridor, wheezing, crackles, paroxysmal nocturnal dyspnea or other GI GI: Negative nausea, vomiting, heartburn, constipation, belching, bloating, cramping, vomiting blood/hematemesis, bright, red blood in stools, black,tarry stools, loose stools, Difficulty Swallowing or other : Negative for hematuria, frequent nighttime urination/ nocturia, erectile dysfunction or abnormal vaginal bleeding Musc Musc: Negative for balance problems, muscle aches/ myalgia, muscle weakness or joint pain Skin Skin: Negative redness, non-healing lesions, rash, unusual bruising, skin ulcer, wounds, jaundice or other Neuro Neuro: Negative for weakness, headache(s), frequent falls, blurry vision, double vision, dizziness, lightheadedness, near syncope, syncope, orthostatic symptoms, confusion, memory loss, restless legs, vertigo, seizures, lack of coordination or other Juancarlos Hematologic/Lymphatic: Negative for easy bleeding, easy bruising, enlarged lymph nodes or other Endo Endo: Negative for fatigue, excessive sweating, cold intolerance, heat intolerance, flushing, increased thirst/drinking, increased hunger, hair loss, hair growth or other Psych Psych: Negative for anxiety, depression, thoughts of harming anyone, thoughts of harming yourself, visual hallucinations, panic attacks or audible hallucinations Allergy Allergy/Immunology: Negative for lip swelling, Negative for tongue swelling, Negative for rash, Negative for throat swelling, Negative for hives Cardiology Exam Const Appearance: cooperative, healthy appearing, well developed, well groomed and no acute distress Nutritional Appearance: well nourished and average body habitus Orientation: alert, awake and oriented x3 Head Head: normal to inspection, normocephalic and atraumatic Ears: hearing grossly normal bilaterally and external ears normal Nose: external nose normal, nasal mucous membranes and turbinates normal, nares normal, septum normal, no nasal discharge Face and Sinus: face symmetric Mouth: oral mucosae normal, tongue normal, oropharynx normal and moist mucous membranes Teeth and gingiva: dentition normal Throat: posterior oropharynx normal, tonsils normal and uvula midline Eyes General: appearance normal, both eyes and all related structures Eyelids: eyelids normal Conjunctivae: conjunctivae normal Pupils: PERRL, normal by confrontation and accommodation normal EOM: EOM intact bilaterally Neck Neck: normal visual inspection, trachea midline and no JVD JVD: +5 Carotids: normal carotid upstroke and bounding pulses Chest Chest inspection: normal inspection of the chest, symmetric chest movement and normal respiratory effort Auscultation: Bilateral: Clear to Auscultation Cardio Palpation: normal PMI Rate: regular rate Rhythm: regular rhythm Heart sounds: S1 normal, S2 normal and normal, physiologic split S2; negative rub, gallop or murmur GI GI: normal to inspection, soft, no hepatosplenomegaly and bowel sounds present Neuro General: alert, awake, oriented x3, no focal sensory deficit, gait normal and moves all extremities Skin Skin: no rashes or lesions noted Extremities Pulses: Normal: Right Femoral Pulse, Left Femoral Pulse, Right Dorsalis Pedis Pulse, Left Dorsalis Pedis Pulse, Right Posterior Tibial Pulse, Left Posterior Tibial Pulse, Right Radial Pulse, Left Radial Pulse Lower Extremity Edema: None: Bilateral Musculoskel Musculoskeletal: No joint tenderness Psych Psychological: normal affect Assessment AND Plan 1. History of coronary artery stent placement Z95.5 PARTH of the ostial D2, PARTH of the mid right coronary artery as well as the distal right coronary artery. Plan He is doing well status post multi vessel angioplasty involving the diagonal vessel as well as the right coronary artery. He did have a small type for myocardial infarction postprocedure but has done well with no residual. The plan at this time would be for him to continue on the aspirin clopidogrel and beta-alex. I will like to see him again in approximately 3 months and at that time would perform a stress test. 2. Atherosclerosis of [place] coronary artery of [place] heart without angina pectoris I25.10 Plan He does have mild residual disease but this can be modified with diet exercise and medication. He will remain on his aspirin and high intensity lipid medications. A lipid profile will also be obtained in approximately 3 months. 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 Risks benefits and alternatives were explained to him he understands and agrees to proceed. Overall I think that he continues to do well. Orders Orders: Plan Detail Follow Up 3 Months (band and cuff cutter) Coding Level of Care Code Off vis,est,level 4 Diagnoses History of coronary artery stent placement Z95.5 Atherosclerosis of [place] coronary artery of [place] heart without angina pectoris I25.10 Coronary Disease-Associated Artery/Lesion type: [place] artery Coding Level of Care Code Off vis,est,level 4 Diagnoses History of coronary artery stent placement Z95.5 Atherosclerosis of [place] coronary artery of [place] heart without angina pectoris I25.10 Coronary Disease-Associated Artery/Lesion type: [place] artery 04/24/17 1351 <Electronically signed by Rodger Newell MD> Date Rodger Newell MD Cosigner Signature: Date (if applicable) CC: Alvaro Smith DO 12 LEAD ELECTROCARDIOGRAM Observed: 04/12/2017 Status: F Source: [place] 3:03 PM [facility] REPOSITORY [facility] [place] [address] 12 Lead EKG 04/05/17 0412 MR#: [id number] Acct: [id number] Name: ALVARO HALL Rep #: [id number] : 1950 66 From: Tian Arriaza MD Attending Dr: Kayley MD,[place] Status: DIS IN Ordering Dr: Paris Jaeger MD Date: 04/05/17 Location: ICU Sex: M C Admitted: 04/04/17 Test Reason : AM EKG Blood Pressure : / mmHG Vent. Rate : 057 BPM Atrial Rate : 057 BPM P-R Int : 170 ms QRS Dur : 070 ms QT Int : 422 ms P-R-T Axes : 036 -44 -12 degrees QTc Int : 410 ms Sinus bradycardia Left axis deviation Low voltage QRS Inferior infarct , age undetermined Abnormal ECG When compared with ECG of 04-APR-2017 05:02, MANUAL COMPARISON REQUIRED, DATA IS UNCONFIRMED Confirmed by TIAN ARRIAZA ([id number]), book or script editor GEREMIAS FELDER ([id number]) on 04/12/2017 3:03:23 PM Referred By: Rodger Newell Confirmed By:TIAN ARRIAZA 04/12/17 1503 Date Tian Arriaza MD CC: Paris Jaeger MD; Alvaro Smith Signed PSA,TOTAL - ANNUAL Collected: 04/12/2017 Status: F Source: JT SCREEN 11:55 AM [facility] REPOSITORY TYPE CODE TESTS RESULT OUT OF RANGE REFERENCE UNITS LAB L501.9910 0.00-4.00 ng/mL Normal PSA,TOT 0.60 SCREEN Result Comment: This test was performed using the TPSA assay method for the [employer] chemistry system. Values obtained with different assay methods cannot be used interchangably. When changing PSA assays in the course of monitoring a patient, additional sequential testing should be carried out to confirm baseline values. Performed By: #### L501.9910 #### [facility] [address] [place], [address] 12 LEAD ELECTROCARDIOGRAM Observed: 04/05/2017 Status: F Source: JT 1:09 PM [facility] REPOSITORY [facility] Cardiovascular Services [address] [place] [address] 12 Lead EKG 04/04/17 0502 MR#: [id number] Acct: [id number] Name: ALVARO HALL Rep #: [id number] : 1950 66 From: Rodger Newell MD Attending Dr: Rodger Newell MD Status: DIS IN Ordering Dr: Paris Jaeger MD Date: 04/04/17 Location: ICU Sex: M C Admitted: 04/04/17 Test Reason : AM EKG Blood Pressure : / mmHG Vent. Rate : 052 BPM Atrial Rate : 052 BPM P-R Int : 180 ms QRS Dur : 074 ms QT Int : 438 ms P-R-T Axes : 035 -36 050 degrees QTc Int : 407 ms Sinus bradycardia Left axis deviation Low voltage QRS Inferior infarct , age undetermined Abnormal ECG When compared with ECG of 03-APR-2017 12:04, MANUAL COMPARISON REQUIRED, DATA IS UNCONFIRMED Confirmed by RODGER NEWELL MD ([id number]), book or script editor GEREMIAS FELDER ([id number]) on 04/05/2017 1:09:27 PM Referred By: KAYLEY Confirmed By:RODGER NEWELL MD 04/05/17 1309 Date Rodger Newell MD CC: Paris Jaeger MD; Alvaro Smith DO Signed DISCHARGE INSTRUCTION Observed: 04/05/2017 Status: F Source: [place] 8:15 AM [facility] REPOSITORY [facility] Medical Records Department [address] [place] [address] Instructions for Home/Discharge Instructions 04/05/17 0810 MR#: [id number] Acct: [id number] Name: ALVARO HALL P Rep #: [id number] : 1950 66 From: Rodger Newell MD PCP: Alvaro Smith DO Status: ADM IN Discharge Diet: Low fat/ Low Cholesterol Discharge Activity: Return to Normal Activity Call your doctor if your incision/area has: Increased Pain/ Swelling, Increased Redness, Foul Smelling Discharge, Swelling at the incision site Call your doctor if you observe: Fever of 101 or Higher Additional Dressing/Incision Instructions:: Keep the dressing (bandage) on until the next morning. You may then shower, but do not take a tub bath for 5 days after your test. It is normal to have some tenderness and discomfort at the puncture site. Sometimes bruising also occurs. However, if pain, numbness, or coldness occurs below the puncture site (in your leg, toes, arms or fingers) call your doctor at once. You may have a small, marble sized knot at the puncture site. This is normal. Do not rub it. It will go away in 4-6 weeks. Bleeding can occur from the area where the puncture was done. Blood may spurt or drip from the site. If blood spurts, apply pressure right away to stop bleeding and call 911. Although rare, bleeding into the tissue (hematoma) can also occur. If this happens, a large, firm area goose egg under the skin will appear. If any of these occur, lie down as flat as you can and have someone apply firm pressure to the cath site with a gauze pad or a clean washcloth for 10-15 minutes. Call 911 or go to the Emergency Department. Allergies/Adverse Reactions: Allergies ticagrelor [From Brilinta] Adverse Reaction (Verified 03/30/17 14:00) Orthopnea Medications to take at Discharge Isosorbide Mononitrate [Imdur] 30 mg PO DAILY #90 tablet 02/27/17 Metoprolol Tartrate [Lopressor (beta alex)] 25 mg PO BID #120 tablet 02/27/17 Pravastatin [Pravachol] 40 mg PO QHS #90 tablet 02/27/17 aspirin 81 mg tablet,delayed release 81 mg PO QDAY #90 tab 02/27/17 clopidogrel 75 mg tablet 75 mg PO BIDAC tab 03/30/17 Primary Care Physician: Alvaro Smith DO [Primary Care Provider] - When: kayley Proposed Discharge Date: 04/05/17 Cardiac Rehabilitation Info Cardiac Rehabilitation Program Information: Cardiac Rehabilitation is important for patients like you who are recovering from a heart problem. Cardiac rehabilitation programs are recognized as integral to the continued care of the patient with coronary heart disease. The cardiac rehabilitation program is designed to optimize a patient's physical, psychological, and social functioning. Health director of primary care work in cardiac rehabilitation programs and assist you with getting the treatments you need to get stronger and healthier - like exercise, healthy eating habits, and medications. Cardiac rehabilitation has been show to help people with heart problems live longer and have better life enjoyment than people who do not go to cardiac rehabilitation. Please contact the Cardiac Rehabilitation Program at [facility] at in two weeks if you have not heard from them. 04/05/17 0815 <Electronically signed by Rodger Newell MD> Date Rodger Newell MD CC: Paris Jaeger MD; Alvaro Smith DO CBC-COMPLETE BLOOD CNT Collected: 04/05/2017 Status: F Source: [place] NO DIFF 3:35 AM [facility] REPOSITORY TYPE CODE TESTS RESULT OUT OF RANGE REFERENCE UNITS LAB L100.1000 4.4-11.0 K/mm3 High WBC 12.5 LAB L100.1200 4.6-6.2 M/mm3 Low RBC 4.59 LAB L100.1300 13.0-16.5 g/dl Normal HGB 14.3 LAB L100.1400 40-54 % Normal HCT 42.2 LAB L100.1500 80-94 fL Normal MCV 91.9 LAB L100.1600 27.0-32.0 pg Normal MCH 31.2 LAB L100.1700 32-36 g/gl Normal MCHC 33.9 LAB L100.1810 11.6-14.6 % Normal RDW CV 14.0 LAB L100.1820 35.1-43.9 fl High RDW SD 46.3 LAB L100.1900 150-450 K/mm3 Normal PLT 241 LAB L100.2000 6.2-12.0 fl Normal MPV 9.3 Performed By: #### L100.0500 #### [facility] [address] [place], [address] BASIC METABOLIC Collected: 04/05/2017 Status: F Source: JT PROFILE (BMP) 3:35 AM [facility] REPOSITORY TYPE CODE TESTS RESULT OUT OF RANGE REFERENCE UNITS LAB L501.0100 74-106 mg/dL High GLU 109 Result Comment: Fasting Glucose result from 100 to 125 mg/dL suggests IMPAIRED HOMEOSTASIS per A.D.A. criteria. Please note revised GLUCOSE reference range effective 2017. LAB L501.1000 7-18 mg/dL Normal BUN 8 LAB L501.1100 0.70-1.30 mg/dL Normal CREAT,SERUM 0.70 Result Comment: The validity of the calculated GFR AND GFRAA in patients over 70 years has not been determined. Clinical correlation is essential. LAB L501.1110 >60 mL/min Normal EST GFR 119 Result Comment: Non- GFR Calc LAB L501.1115 >60 mL/min Normal EST GFR - AA 145 Result Comment: GFR Calc LAB L501.1255 ml/min Normal Estimated CRCL 64.69 LAB L501.1300 10-20 RATIO Normal BUN/CRE 11.4 LAB L501.2200 8.5-10 mg/dL Low .1 CA 8.0 LAB L501.5300 136-14 mmol/L Normal 5 NA 140 LAB L501.5600 3.5-5. mmol/L Normal 1 K 3.6 LAB L501.5900 98-107 mmol/L Normal CL 107 LAB L501.6100 21.0-3 mmol/L Normal 2.0 CO2 27.0 LAB L501.6200 5-15 Normal GAP 6 Performed By: #### L500.2500 #### [facility] [address] [facility] [place], [address] 12 LEAD ELECTROCARDIOGRAM Observed: 04/04/2017 Status: F Source: RAYWICK 1:34 PM [facility] REPOSITORY [facility] Cardiovascular Services [address] [place] [address] 12 Lead EKG 04/03/17 1152 MR#: [id number] Acct: [id number] Name: ALVARO HALL Rep #: [id number] : 1950 66 From: Gonzales Martinez MD Attending Dr: Kayley FIELD,Rodger Status: ADM IN Ordering Dr: Paris Jaeger MD Date: 04/03/17 Location: ICU Sex: M C Admitted: 04/04/17 Test Reason : CP Blood Pressure : / mmHG Vent. Rate : 057 BPM Atrial Rate : 057 BPM P-R Int : 172 ms QRS Dur : 074 ms QT Int : 412 ms P-R-T Axes : 037 -27 065 degrees QTc Int : 401 ms Sinus bradycardia Inferior infarct , age undetermined, possibly recent Abnormal ECG Confirmed by MICHELLE FIELD, GONZALES ([id number]), book or script editor GEREMIAS FELDER ([id number]) on 04/04/2017 1:34:19 PM Referred By: Rodger Newell Confirmed By:GONZALES MARTINEZ MD 04/04/17 1334 Date Gonzales Martinez MD CC: Paris Jaeger MD; Alvaro Smith Signed BASIC METABOLIC Collected: 04/04/2017 Status: F Source: JT PROFILE (BMP) 5:05 AM [facility] REPOSITORY Order Comment: REDRAW. PREVIOUS SPECIMEN REJECTED DUE TO CLOTTED/HEMOLYZED. 04/04/17 0454 Zoila Chavez. 'TROP' Serial specimen #1, #2, #3, or #4: 1 TYPE CODE TESTS RESULT OUT OF RANGE REFERENCE UNITS LAB L501.0100 74-106 mg/dL High GLU 136 Result Comment: Fasting Glucose result greater than or equal to 126 mg/dL suggests DIABETES MELLITUS per A.D.A. criteria. Please note revised GLUCOSE reference range effective 2017. LAB L501.1000 7-18 mg/dL Normal BUN 13 LAB L501.1100 0.70-1.30 mg/dL Normal CREAT,SERUM 0.87 Result Comment: The validity of the calculated GFR AND GFRAA in patients over 70 years has not been determined. Clinical correlation is essential. LAB L501.1110 >60 mL/min Normal EST GFR 93 Result Comment: Non- GFR Calc LAB L501.1115 >60 mL/min Normal EST GFR - AA 112 Result Comment: GFR Calc LAB L501.1255 ml/min Normal Estimated CRCL 74.35 LAB L501.1300 10-20 RATIO Normal BUN/CRE 15.0 LAB L501.2200 8.5-10 mg/dL Low .1 CA 7.9 LAB L501.5300 136-14 mmol/L Normal 5 NA 139 LAB L501.5600 3.5-5. mmol/L Normal 1 K 3.6 LAB L501.5900 98-107 mmol/L Normal CL 106 LAB L501.6100 21.0-3 mmol/L Normal 2.0 CO2 24.0 LAB L501.6200 5-15 Normal GAP 9 Performed By: #### L500.2500, L501.4010 #### [facility] [address] [place], [address] TROPONIN-I Collected: 04/04/2017 Status: F Source: JT 5:05 AM [facility] REPOSITORY Order Comment: REDRAW. PREVIOUS SPECIMEN REJECTED DUE TO CLOTTED/HEMOLYZED. 04/04/17453 Zoila Chavez. 'TROP' Serial specimen #1, #2, #3, or #4: 1 TYPE CODE TESTS RESULT OUT OF RANGE REFERENCE UNITS LAB L501.4010 <0.06 ng/mL High alert 14.10 TROPONIN-I Result Comment: Critical Result(s) Called at: 05:39:01 04/04/2017 by: MELISSA TOVAR RN ICU TROPONIN-I EXPECTED VALUES <0.05 NEGATIVE 0.06 - 0.59 AT RISK OF RI > OR = 0.60 SUGGEST RI Performed By: #### L500.2500, L501.4010 #### [facility] [address] [place], [place], [address] CBC-COMPLETE BLOOD CNT Collected: 04/04/2017 Status: F Source: JT NO DIFF 5:05 AM [facility] REPOSITORY Order Comment: REDRAW. PREVIOUS SPECIMEN REJECTED DUE TO CLOTTED/HEMOLYZED. 04/04/17453 Zoila Chavez. TYPE CODE TESTS RESULT OUT OF RANGE REFERENCE UNITS LAB L100.1000 4.4-11.0 K/mm3 High WBC 11.8 LAB L100.1200 4.6-6.2 M/mm3 Low RBC 4.36 LAB L100.1300 13.0-16.5 g/dl Normal HGB 13.3 LAB L100.1400 40-54 % Low HCT 39.8 LAB L100.1500 80-94 fL Normal MCV 91.3 LAB L100.1600 27.0-32.0 pg Normal MCH 30.5 LAB L100.1700 32-36 g/gl Normal MCHC 33.4 LAB L100.1810 11.6-14.6 % Normal RDW CV 13.8 LAB L100.1820 35.1-43.9 fl High RDW SD 46.1 LAB L100.1900 150-450 K/mm3 Normal PLT 264 LAB L100.2000 6.2-12.0 fl Normal MPV 9.3 Performed By: #### L100.0500 #### [facility] [address] [place], [address] ECHOCARDIOGRAM, LIMITED Observed: 04/03/2017 Status: F Source: RAYWICK STUDY 5:17 PM [facility] REPOSITORY [facility] Cardiovascular Services [address] [place] [address] Echo, Limited Study 04/03/17 1349 MR#: [id number] Acct: [id number] Name: ALVARO HALL Rep #: [id number] : 1950 66 From: Rodger Newell MD Attending Dr: Rodger Newell MD Status: REG [facility] Ordering Dr: Paris Jaeger MD Date: 04/03/17 Location: ICU Sex: M C Admitted: Reason For Study: Abn. EKG Procedure This was a limited 2D transthoracic echocardiogram. Exam performed portable in ICU/CCU. Left Ventricle Normal LV size. Left ventricular systolic function is normal. The estimated ejection fraction is 60 %. No regional wall motion abnormalities noted. Mitral Valve Normal mitral valve. Trivial eccentric mitral valve insufficiency. Pericardium/Pleural No pericardial effusion. MMode/2D Measurements AND Calculations LVIDd: 3.8 cm IVSd: 0.94 cm LVIDs: 2.4 cm LVPWd: 1.0 cm FS: 38.5 % Interpretation Summary Normal LV size. Left ventricular systolic function is normal. The estimated ejection fraction is 60 %. No regional wall motion abnormalities noted. Ordering Physician: Paris Jaeger Referring Physician: Alvaro Smith Performed By: Dolores Arellano RDCS 04/03/17 0596 Date Rodger Newell MD CC: Paris Jaeger MD; Alvaro Smith DO Date Dictated: 04/03/17 1349 Date Transcribed: 04/03/171715 Marine Designer: Donald Herrera STAPH AUREUS Collected: 04/03/2017 Status: F Source: JT DNA BY PCR 12:25 PM [facility] REPOSITORY TYPE CODE TESTS RESULT OUT OF RANGE REFERENCE UNITS LAB L8200.1100 Negative Normal MRSA Negative RESULT Performed By: #### L8200.1000 #### [facility] [address] [place], [address] ACT ACTIVATED CLOTTING Collected: 04/03/2017 Status: F Source: JT TIME 10:40 AM [facility] REPOSITORY TYPE CODE TESTS RESULT OUT OF RANGE REFERENCE UNITS LAB L9100.0100 74-137 sec High ACTk CLOT 224 TIME Performed By: #### L9100.0100 #### [facility] Point of Care [address] [place] [address] ACT ACTIVATED CLOTTING Collected: 04/03/2017 Status: F Source: JT TIME 9:50 AM [facility] REPOSITORY TYPE CODE TESTS RESULT OUT OF RANGE REFERENCE UNITS LAB L9100.0100 74-137 sec High ACTk CLOT 246 TIME Performed By: #### L9100.0100 #### [facility] Point of Care [address] [place] [address] CBC W/DIFF, AUTOMATED Collected: 03/30/2017 Status: F Source: JT 2:54 PM [facility] REPOSITORY TYPE CODE TESTS RESULT OUT OF RANGE REFERENCE UNITS LAB L100.1000 4.4-11.0 K/mm3 Normal WBC 5.3 LAB L100.1200 4.6-6.2 M/mm3 Normal RBC 4.66 LAB L100.1300 13.0-16.5 g/dl Normal HGB 14.2 LAB L100.1400 40-54 % Normal HCT 42.8 LAB L100.1500 80-94 fL Normal MCV 91.8 LAB L100.1600 27.0-32.0 pg Normal MCH 30.5 LAB L100.1700 32-36 g/gl Normal MCHC 33.2 LAB L100.1810 11.6-14.6 % Normal RDW CV 13.6 LAB L100.1820 35.1-43.9 fl High RDW SD 45.1 LAB L100.1900 150-450 K/mm3 Normal PLT 288 LAB L100.2000 6.2-12.0 fl Normal MPV 9.5 LAB L100.2100 47-70 % Normal NEUT% 55.2 LAB L100.2200 19-41 % Normal LY% 26.7 LAB L100.2300 0-10 % High MONO% 11.3 LAB L100.2400 0-5 % High EO% 6.2 LAB L100.2500 0-1 % Normal BASO% 0.4 LAB L100.2550 0.0-0.9 % Normal IM GRAN % 0.200 Result Comment: IG% - Immature Granulocytes (promyelocytes, myelocytes and metamyelocytes) > 1% indicates that a LEFT SHIFT is Present. LAB L100.2620 2.0-7.7 X10 3/uL Normal Absolute Neut 2.9 LAB L100.2720 0.83-4.51 X10 3/ul Normal Absolute Lymph 1.42 Performed By: #### L100.0100, L500.2500 #### [facility] [address] [place], [place], [address] BASIC METABOLIC Collected: 03/30/2017 Status: F Source: RAYWICK PROFILE ([facility]) 2:54 PM [facility] REPOSITORY TYPE CODE TESTS RESULT OUT OF RANGE REFERENCE UNITS LAB L501.0100 74-106 mg/dL Normal GLU 91 Result Comment: Please note revised GLUCOSE reference range effective 2017. LAB L501.1000 7-18 mg/dL Normal BUN 14 LAB L501.1100 0.70-1.30 mg/dL Normal CREAT,SERUM 0.87 Result Comment: The validity of the calculated GFR AND GFRAA in patients over 70 years has not been determined. Clinical correlation is essential. LAB L501.1110 >60 mL/min Normal EST GFR 92 Result Comment: Non- GFR Calc LAB L501.1115 >60 mL/min Normal EST GFR - AA 112 Result Comment: GFR Calc LAB L501.1300 10-20 RATIO Normal BUN/CRE 16.0 LAB L501.2200 8.5-10.1 mg/dL CA Normal 8.5 LAB L501.5300 136-145 mmol/L NA Normal 139 LAB L501.5600 3.5-5.1 mmol/L K Normal 3.9 LAB L501.5900 98-107 mmol/L CL Normal 102 LAB L501.6100 21.0-32.0 mmol/L Normal CO2 28.0 LAB L501.6200 5-15 Normal GAP 9 Performed By: #### L100.0100, L500.2500 #### [facility] [address] [facility] [place], [address] CARDIOLOGY VISIT Observed: 03/30/2017 Status: F Source: RAYWICK REPORT 2:21 PM [facility] REPOSITORY [facility] [address] [place] [address] OFFICE VISIT Date of Service: 03/30/17 MR#: [id number] Acct: [id number] Name: ALVARO HALL Rep #: [id number] : 1950 Provider: Rodger Newell MD Age/Sex: 66/M Location: [facility] Status: Signed HPI HPI Chief Complaint: Follow-up visit and evaluation of chest pain. Details: ALVARO HALL, is a 66 M who presents to the office today for a follow-up visit. As you know he underwent cardiac catheterization following presentation with angina. It demonstrated moderately severe disease involving the first diagonal vessel of the left anterior descending artery and moderate disease in the mid right coronary artery and severe disease involving the distal right coronary artery. The plan was then he underwent angioplasty and stenting of the diagonal vessel with a resolute 2.25 mm drug-eluting stents. His he started cardiac rehabilitation and the plan was to evaluate the right coronary artery and if he did not tolerate it or develop chest discomfort then he will have this intervened on. He has been in cardiac rehabilitation and he says that he does get chest discomfort when his heart rate gets above a certain threshold and also when he is exposed to the cold air. He has otherwise been tolerating his medications including his aspirin beta alex and isosorbide and has been taking his statin. He has not had any angina at rest. His physical exam demonstrates clear lung encinas regular rate and rhythm no pedal edema. Intake Vital Signs03/30/17 Height 5 ft 6 in Intake Visit Reasons: f/up post stent (02-26-17) Allergies ticagrelor [From Brilinta] Adverse Reaction (Verified 03/30/17 14:00) Orthopnea Medications Isosorbide Mononitrate [Imdur] 30 mg PO DAILY #90 tab 02/27/17 [Rx] Metoprolol Tartrate [Lopressor (beta alex)] 25 mg PO BID #120 tab 02/27/17 [Rx] Pravastatin [Pravachol] 40 mg PO QHS #90 tab 02/27/17 [Rx] aspirin 81 mg tablet,delayed release 81 mg PO QDAY #90 tab 02/27/17 [Rx Confirmed 02/27/17] clopidogrel 75 mg tablet 75 mg PO QDAY tab 03/30/17 [History Confirmed 03/30/17] FOR[facility]LY [facility] Medical History Atherosclerosis of coronary artery of [place] heart without angina pectoris (Acute) Obesity (BMI 30-39.9) (Chronic) Surgical History History of coronary artery stent placement (Chronic 02/26/17) History of left heart catheterization (LHC) (Chronic 02/26/17) Family History Father CAD (coronary artery disease) CABG age 62 Social History Smoking Status: Never smoker alcohol intake: current alcohol intake frequency: holidays/special occasions only caffeine: Yes ROS Const Const: Negative for weakness, difficulty sleeping, frequent falls, headache(s), excessive sweating or fatigue Eyes Eyes: Negative for loss of peripheral vision, transient loss of vision, blurry vision or double vision ENT ENT: Negative for headache(s), Negative for dizziness, Negative for Nosebleed/epistaxis, Negative for balance problems Cardio Chest Pain: Yes Frequency: daily Character: tightness Onset: exercise, other (climbing ladder or walking on treadmill) Location: mid sternal, left chest, right chest, other (down both arms) Duration: minutes Exacerbation: rest Edema: None Muscle aches with walking: None Resp Respiratory: Negative for SOB with activity, SOB at rest, SOB orthopnea\SOB lying down or paroxysmal nocturnal dyspnea GI GI: Negative nausea or heartburn : Negative for hematuria Musc Musc: Negative for muscle aches/ myalgia, muscle weakness, joint pain or balance problems Skin Skin: Negative non-healing lesions, unusual bruising or rash Neuro Neuro: Negative for weakness, Negative for frequent falls, Negative for blurry vision, Negative for headache(s), Negative for dizziness, Negative for lightheadedness, Negative for orthostatic symptoms, Negative for double vision Juancarlos Hematologic/Lymphatic: Negative for easy bruising Endo Endo: Negative for excessive sweating, increased thirst/drinking or fatigue Psych Psych: Negative for anxiety or depression Allergy Allergy/Immunology: Negative for hives, Negative for rash Cardiology Exam Const Appearance: cooperative, healthy appearing, well developed, well groomed and no acute distress Nutritional Appearance: well nourished and average body habitus Orientation: alert, awake and oriented x3 Head Head: normal to inspection, normocephalic and atraumatic Ears: hearing grossly normal bilaterally and external ears normal Nose: external nose normal, nasal mucous membranes and turbinates normal, nares normal, septum normal, no nasal discharge Face and Sinus: face symmetric Mouth: oral mucosae normal, tongue normal, oropharynx normal and moist mucous membranes Teeth and gingiva: dentition normal Throat: posterior oropharynx normal, tonsils normal and uvula midline Eyes General: appearance normal, both eyes and all related structures Eyelids: eyelids normal Conjunctivae: conjunctivae normal Pupils: PERRL, normal by confrontation and accommodation normal EOM: EOM intact bilaterally Neck Neck: normal visual inspection, trachea midline and no JVD JVD: +5 Carotids: normal carotid upstroke and bounding pulses Chest Chest inspection: normal inspection of the chest, symmetric chest movement and normal respiratory effort Auscultation: Bilateral: Clear to Auscultation Cardio Palpation: normal PMI Rate: regular rate Rhythm: regular rhythm Heart sounds: S1 normal, S2 normal and normal, physiologic split S2; negative rub, gallop or murmur GI GI: normal to inspection, soft, no hepatosplenomegaly and bowel sounds present Neuro General: alert, awake, oriented x3, no focal sensory deficit, gait normal and moves all extremities Skin Skin: no rashes or lesions noted Extremities Pulses: Normal: Right Femoral Pulse, Left Femoral Pulse, Right Dorsalis Pedis Pulse, Left Dorsalis Pedis Pulse, Right Posterior Tibial Pulse, Left Posterior Tibial Pulse, Right Radial Pulse, Left Radial Pulse Lower Extremity Edema: None: Bilateral Musculoskel Musculoskeletal: No joint tenderness Psych Psychological: normal affect Assessment AND Plan 1. Chest pain R07.9 Plan He unfortunately continues to have residual chest discomfort which I suspect it is coming from the right coronary artery the plan will be for him to undergo cardiac catheterization with a view to angioplasty of the right coronary artery. I discussed this with him he would definitely up preferred to have the above performed through the radial approach. He also plans on going out of the country soon and I would rather suggest that we have this performed soonest. Orders Orders: 2. Hyperlipidemia E78.5 Plan He will continue on his medium intensity statin. He will also continue on his current other medications with aspirin and clopidogrel. Thank you for allowing me to participate in the care of your patient. Please don't hesitate to call if any issues arise Orders Orders: 3. History of coronary artery stent placement Z95.5 PARTH of the ostial D2 Plan He status post angioplasty and stenting with a drug-eluting stent of the second obtuse marginal branch. He did have fractional flow reserve performed to the mid left anterior descending artery it was noted to be insignificant. I suspect his problems at this time are coming from the distal right coronary artery. Thank you for allowing me to participate in the care of your patient. Please don't hesitate to call if any issues arise Orders Orders: Plan Detail Other Orders Orders: Other Medications Discontinued: Follow Up 3 Months (band and cuff cutter) Coding Level of Care Code Off vis,est,level 4 Diagnoses Chest pain R07.9 Hyperlipidemia E78.5 History of coronary artery stent placement Z95.5 Coding Level of Care Code Off vis,est,level 4 Diagnoses Chest pain R07.9 Hyperlipidemia E78.5 History of coronary artery stent placement Z95.5 03/30/17 1421 <Electronically signed by Rodger Newell MD> Date Rodger Newell MD Cosigner Signature: Date (if applicable) CC: Alvaro Smith DO 12 LEAD EKG PERFORMED Observed: 03/30/2017 Status: F Source: JT BY [facility] 2:01 PM [facility] REPOSITORY [facility] [address] [place] [address] 12 Lead EKG performed by [facility] 03/30/17 1400 MR#: [id number] Acct: [id number] Name: ALVARO HALL Kel Rep #: [id number] : 1950 66 From: Rodger Newell MD Attending Dr: Rodger Newell MD Status: DEP AMB Ordering Dr: Rodger Newell MD Date: 03/30/17 Location: [facility] Sex: M C Admitted: BMS/12 Lead EKG performed by [facility] ECG Report Interpretation Sinus Rhythm -With rate variation cv = 13.Low voltage in precordial leads. -Left axis -anterior fascicular block. -Left atrial enlargement. - Inferior -lateral infarct Old. ABNORMAL Electronically signed on 04/17/2017 at 19:49 by Rodger Newell 04/17/171949 Date Rodger Newell MD CC: Alvaro Smith DO Date Dictated: 03/30/17 1400 Date Transcribed: 03/30/17 1400 Marine Designer: CO Signed ALLERGIES ALLERGIES DATE TYPE / CODE NAME / CODE REACTION SEVERITY SOURCE 03/08/2018 Drug ticagrelor/F Orthopnea Unknown Jt [facility] Allergy/4160 [id number]([facility] 41697(SNOMED NORM) Repository CT) ENCOUNTERS ENCOUNTERS ADMIT/DISCHARGE ACCOUNT ADMITTING ENCOUNTER LOCATION SOURCE NUMBER CLASS 03/08/2018 [id number] Ambulatory Jt [place] 0 [facility] Hospital ing:RAD Repository 03/08/2018/ [id number] Ambulatory BMSBuilding:B J[place] 9 2 [facility] Repository 02/01/2018/ [id number] Ambulatory BMSBuilding:B [place] 8 6 [facility] Repository 12/31/2017 [id number] Ambulatory [place] 7 [facility] Hospital ing:CVS Repository 12/31/2017 [id number] Ambulatory BMSBuilding:W Jt 2 [facility] Repository 10/03/2017/ [id number] Ambulatory BMSBuilding:B Jt 8 0 [facility] Repository 08/28/2017 [id number] Ambulatory BMSBuilding:B [place] 0 [facility] Repository 08/16/2017 [id number] Ambulatory [place] Jt 5 [facility] Hospital ing:CVS Repository 08/16/2017 [id number] Ambulatory BMSBuilding:W Jt 4 [facility] Repository 08/02/2017 [id number] Ambulatory BMSBuilding:B Jt 1 [facility] Repository 08/02/2017 [id number] Ambulatory Jt [place] 2 [facility] Hospital ing:LAB Repository 08/02/2017/ [id number] Ambulatory BMSBuilding:B Jt 8 0 [facility] Repository 04/24/2017/ [id number] Ambulatory BMSBuilding:B [place] 8 1 [facility] Repository 04/12/2017 [id number] Ambulatory [place] 6 [facility] Hospital ing:BFHLAB Repository 04/10/2017 [id number] Ambulatory BMSBuilding:B Jt 0 [facility] Repository 04/04/2017/ [id number] Rodger Newell Inpatient Jt [place] 8 2 Encounter [facility] ing:ICURoom: Repository [id number]: [id number] 04/04/2017/ [id number] Ambulatory BMSBuilding:W [place] 8 0 [facility] Repository 04/04/2017/ [id number] Ambulatory BMSBuilding:W J[place] 8 1 [facility] Repository 04/03/2017 [id number] Ambulatory BMSBuilding:W [place] 1 [facility] Repository 04/03/2017/ [id number] Ambulatory BMSBuilding:W Jt 8 4 [facility] Repository 04/03/2017/ [id number] Ambulatory BMSBuilding:W J[place] 8 5 [facility] Repository 03/30/2017 [id number] Ambulatory [place] 8 [facility] ing:LAB Repository 03/30/2017/ [id number] Ambulatory BMSBuilding:B Jt 8 4 [facility] Repository PAYERS PAYERS ENCOUNTER GUARANTOR PAYER SUBSCRIBER SOURCE 03/08/2018 ALVARO P Primary ALVARO P Jt [id number] Insurance:MEDICARE [employer] Community [address] [facility] B[id number] Repository [id number]: [phone] [id number] [phone] () Date:2018-03-08 03/08/2018 Secondary ALVARO P [place] Insurance:[facility] B: [id number] Hospital Number: Repository [id number] Date:[id number] [address] [place] [address]YW: 03/08/2018 Tertiary NOT GIVENUNK Jt Insurance:SELF PAY [facility] Number: Effective Repository Date:2018-03-08 03/08/2018 ALVARO P Primary ALVARO P Jt [id number] Insurance:MEDICARE [employer] Community [address] BPolicy [place]: [id number] Number: Repository [id number]: 330 [id number] [phone] (HP) Date:2018-02-01 03/08/2018 Secondary ALVARO P [place] Insurance:[facility] B: [id number] Hospital Number: Repository [id number] Date:7854-19-18AX [address] [address]RJ: 03/08/2018 Tertiary NOT GIVENUNK Jt Insurance:SELF PAY [facility] Number: Effective Repository Date:2018-03-06 02/01/2018 ALVARO P Primary ALVARO P Jt [id number] Insurance:MEDICARE [employer] Community [address] olicy B: [id number] Number: Repository [id number]: 330 [id number] [phone] (HP) Date:2017-08-02 02/01/2018 Secondary ALVARO P [place] Insurance:[facility] B: [id number] Hospital Number: Repository [id number] Date:1582-74-88RD [address] [address]TZ: 02/01/2018 Tertiary NOT GIVENUNK [place] Insurance:SELF PAY [facility] Number: Effective Repository Date:2017-11-02 12/31/2017 ALVARO P Primary ALVARO P Jt [id number] Insurance:MEDICARE [employer] Community [address] olicy B: [id number] Number: Repository [id number]: 330 [id number] [phone] (HP) Date:2017-12-21 12/31/2017 Secondary ALVARO P [place] Insurance:[facility] B: [id number] Hospital Number: Repository [id number] Date:[id number] [address] [place] [address]EI: 12/31/2017 Tertiary NOT GIVENUNK [place] Insurance:SELF PAY [facility] Number: Effective Repository Date:2017-12-21 12/31/2017 ALVARO P Primary ALVARO P [place] [id number] Insurance:MEDICARE [employer] Community [address] olic B: [id number] Number: Repository [id number]: 330 [id number] [phone] (HP) Date:2017-12-21 12/31/2017 Secondary ALVARO P [place] Insurance:[facility] B: [id number] Hospital Number: Repository [id number] Date:0956-99-51EC [address] [address]VD: 12/31/2017 Tertiary NOT GIVENUNK Jt Insurance:SELF PAY [facility] Number: Effective Repository Date:2017-12-31 10/03/2017 ALVARO P Primary ALVARO P Jt [id number] Insurance:MEDICARE [employer] Community [address] [facility] B: [id number] Number: Rep[place] [id number]: [phone] [id number] [phone] () Date:2017-09-21 10/03/2017 Secondary ALVARO P Jt Insurance:[facility] B: [id number] Hospital Number: Repository [id number] Date:3209-60-18TJ [address] [address]XB: 10/03/2017 Tertiary NOT GIVENUNK [place] Insurance:SELF PAY [facility] Number: Effective Repository Date:2017-10-03 08/28/2017 ALVARO P Primary ALVARO P [place] [id number] Insurance:MEDICARE [employer] [address] [id number] [id number]: [id number] [phone] Date:2017-02-23 () 08/28/2017 Secondary ALVARO P Jt Insurance:[facility]: [id number] Hospital Number: Repository [id number] Date:8099-70-81VV [address] [address]YX: 08/28/2017 Tertiary NOT GIVENUNK [place] Insurance:SELF PAY [facility] Number: Effective Repository Date:2017-02-23 08/16/2017 ALVARO P Primary ALVARO P Jt [id number] Insurance:MEDICARE [employer] Community [address] [id number] Number[place] Rep[place] [id number]: 330 [id number] [phone] () Date:2017-08-02 08/16/2017 Secondary ALVARO P Jt Insurance:[facility]: [id number] Hospital Number: Repository [id number] Date:6310-77-46BB[address] [address]YB: 08/16/2017 Tertiary NOT GIVENUNK [place] Insurance:SELF PAY [facility] Number: Effective Repository Date:2017-08-02 08/16/2017 ALVARO P Primary ALVARO P Jt [id number] Insurance:[employer]ICARE [employer] Community [address] BPolicy B: [id number] Number[place] Repository [id number]: 330 [id number] [phone] () Date:2017-08-02 08/16/2017 Secondary ALVARO P [place] Insurance:[facility]: [id number] Hospital Number: Repository [id number] Date:0514-85-48OE[address] [address]DN: 08/16/2017 Tertiary NOT GIVENUNK Jt Insurance:SELF PAY [facility] Number: Effective Repository Date:2017-08-16 08/02/2017 ALVARO P Primary ALVARO P Jt [id number] Insurance:[employer]ARE [employer] Community [address] olicy B: [id number] Number[place] Repository [id number]: [id number] [phone] Date:2017-03-30 () 08/02/2017 Secondary ALVARO P [place] Insurance:[facility] B: [id number] Hospital Number: Repository [id number] Date:0199-81-29QA [address] [address]VE: 08/02/2017 Tertiary NOT GIVENUNK [place] Insurance:SELF PAY [facility] Number: Effective Repository Date:2017-06-26 08/02/2017 ALVARO P Primary ALVARO P Jt [id number] Insurance:MEDICARE [employer] Community [address] [facility] B: [id number] Repository [id number]: 330 [id number] [phone] () Date:2017-08-02 08/02/2017 Secondary ALVARO P [place] Insurance:[facility] B: [id number] Hospital Number: Repository [id number] Date:1767-17-06NI [address] [place] [address]IO: 08/02/2017 Tertiary NOT GIVENUNK Jt Insurance:SELF PAY [facility] Number: Effective Repository Date:2017-08-02 08/02/2017 ALVARO P Primary ALVARO P [place] [id number] Insurance:[employer] Community [address] BPolicy B: [id number] Number[place] Repository [id number]: [id number] [phone] Date:2017-04-24 () 08/02/2017 Secondary ALVARO P Jt Insurance:[facility]: [id number] Hospital Number: Repository [id number] Date:9124-35-50RG [address] [place] [address]UN: 08/02/2017 Tertiary NOT GIVENUNK [place] Insurance:SELF PAY [facility] Number: Effective Repository Date:2017-08-02 04/24/2017 ALVARO P Primary ALVARO P Jt [id number] Insurance:MEDICARE [employer] Community [address] [facility] B: [id number] Number[place] Repository [id number]: [id number] [phone] Date:2017-04-06 () 04/24/2017 Secondary ALVARO P Jt Insurance:[facility] B: [id number] Hospital Number: Repository [id number] Date:3271-27-54FA [address] [place] [address]CZ: 04/24/2017 Tertiary NOT GIVENUNK Jt Insurance:SELF PAY [facility] Number: Effective Repository Date:2017-04-06 04/12/2017 ALVARO P Primary ALVARO P [place] [id number] Insurance:[employer] Community [address] olicy B: [id number] Number[place] Repository [id number]: [id number] [phone] Date:2017-04-12 () 04/12/2017 Secondary ALVARO P [place] Insurance:[facility] B: [id number] Hospital Number: Repository [id number] Date:0632-70-68BW [address] [place] [address]NC: 04/12/2017 Tertiary NOT GIVENUNK Jt Insurance:SELF PAY [facility] Number: Effective Repository Date:2017-04-12 04/10/2017 ALVARO P Primary ALVARO P Jt [id number] Insurance:[employer] Community [address] BPolicy B: [id number] Number[place] Repository [address]Icn: [id number] [phone] Date:2017-04-10 () 04/10/2017 Secondary ALVARO P [place] Insurance:[facility] B: [id number] Hospital Number: Repository [id number] Date:6222-64-25LF [address] [address]RF: 04/10/2017 Tertiary NOT GIVENUNK [place] Insurance:SELF PAY [facility] Number: Effective Repository Date:2017-04-10 04/04/2017 ALVARO P Primary ALVARO P [place] [id number] Insurance:[employer]ICARE [employer] Community [address] BPolicy B: [id number] Number[place] Repository [id number]: [id number] [phone] Date:2017-03-30 () 04/04/2017 Secondary ALVARO P Jt Insurance:[facility] B: [id number] Hospital Number: Repository [id number] Date:5125-43-44LF [address] [address]SD: 04/04/2017 Tertiary NOT GIVENUNK Jt Insurance:SELF PAY [facility] Number: Effective Repository Date:2017-03-30 04/04/2017 ALVARO P Primary ALVARO P [place] [id number] Insurance:[employer]IC[employer] Community [address] BPolicy B: [id number] Number[place] Repository [id number]: [id number] [phone] Date:2017-03-30 () 04/04/2017 Secondary ALVARO P [place] Insurance:[facility]: [id number] Hospital Number: Repository [id number] Date:4353-17-41EQ [address] [place] [address]MT: 04/04/2017 Tertiary NOT GIVENUNK Jt Insurance:SELF PAY [facility] Number: Effective Repository Date:2017-04-04 04/04/2017 ALVARO P Primary ALVARO P [place] [id number] Insurance:[employer] Community [address] [facility] B: [id number] Number[place] Repository [id number]: [id number] [phone] Date:2017-03-30 () 04/04/2017 Secondary ALVARO P Jt Insurance:[facility] B: [id number] Hospital Number: Repository [id number] Date:2202-13-68EN [address] [address]KY: 04/04/2017 Tertiary NOT GIVENUNK Jt Insurance:SELF PAY [facility] Number: Effective Repository Date:2017-04-04 04/03/2017 ALVARO P Primary ALVARO P [place] [id number] Insurance:[employer] Community [address] olicy B: [id number] Number[place] Repository [id number]: [id number] [phone] Date:2017-03-30 () 04/03/2017 Secondary ALVARO P Jt Insurance:[facility]: [id number] Hospital Number: Repository [id number] Date:3624-42-93GB [address] [place] [address]FJ: 04/03/2017 Tertiary NOT GIVENUNK Jt Insurance:SELF PAY [facility] Number: Effective Repository Date:2017-04-03 04/03/2017 ALVARO P Primary ALVARO P [place] [id number] Insurance:MEDICARE [employer] Community [address] BPolicy B: [id number] Number[place] Repository [id number]: [id number] [phone] Date:2017-03-30 () 04/03/2017 Secondary ALVARO P [place] Insurance:[facility] B: [id number] Hospital Number: Repository [id number] Date:8248-99-30KV[address] [address]TP: 04/03/2017 Tertiary NOT GIVENUNK Jt Insurance:SELF PAY [facility] Number: Effective Repository Date:2017-04-03 04/03/2017 ALVARO P Primary ALVARO P [place] [id number] Insurance:[employer] Community [address] BPolicy B: [id number] Number[place] Repository [id number]: [id number] [phone] Date:2017-03-30 () 04/03/2017 Secondary ALVARO P Jt Insurance:[facility] B: [id number] Hospital Number: Repository [id number] Date:2016-03-49HO[address] [address]KK: 04/03/2017 Tertiary NOT GIVENUNK [place] Insurance:SELF PAY [facility] Number: Effective Repository Date:2017-04-03 03/30/2017 ALVARO P Primary ALVARO P [place] [id number] Insurance:[employer] Community [address] BPolicy B: [id number] Number: Repository [address]Csn: [id number] [phone] Date:2017-03-30 () 03/30/2017 Secondary ALVARO P [place] Insurance:[facility] B: [id number] Hospital Number: Repository [id number] Date:9874-17-27WH [address] [place] [address]MW: 03/30/2017 Tertiary NOT GIVENUNK [place] Insurance:SELF PAY [facility] Number: Effective Repository Date:2017-03-30 03/30/2017 ALVARO P Primary ALVARO P J[place] [id number] Insurance:MEDICARE [employer] Community [address] [facility] B: [id number] Number[place] Repository [id number]: [id number] [phone] Date:2017-03-02 () 03/30/2017 Secondary ALVARO P [place] Insurance:[facility] B: [id number] Hospital Number: Repository [id number] Date:8218-71-86OZ [address] [place] [address]ZX: 03/30/2017 Tertiary NOT GIVENUNK [place] Insurance:SELF PAY [facility] Number: Effective Repository Date:2017-03-02
== END ==
PROVIDERS: Family Provider Family Medicine; PCP Family Medicine; Referring Provider Internal Medicine Cardiovascular Disease; Visit Provider Internal Medicine Cardiovascular Disease
DX: I25.119 Atherosclerotic heart disease of native coronary artery with unspecified angina pectoris (principal); E78.00 Pure hypercholesterolemia, unspecified; Z95.5 Presence of coronary angioplasty implant and graft
CPT/HCPCS: 71046

== ENCOUNTER 2018-03-22 06:44 | Day surgery (SDC) | payer MEDICARE, OTHER, SELFPAY ==
[2018-03-08 15:08] VITALS: BMI 30.7
[2018-03-08 17:13] LABS: Absolute Lymphocyte Count 1.95 X10^3/ul (0.83-4.51); Absolute Neutrophil Count 2.7 X10^3/uL (2.0-7.7); Basophil# 0.02 X10^3/uL; Basophil% 0.4 % (0-1); Eosinophil# 0.37 X10^3/uL; Eosinophils% 6.8 % (0-5); Hematocrit 44.1 % (40-54); Hemoglobin 14.6 g/dl (13.0-16.5); Lymphocyte # 1.95 X10^3/ul (4.0); Lymphocyte % 35.8 % (19-41); Mean Corp Hgb Conc 33.1 g/gl (32-36); Mean Corpuscular Hgb 30.6 pg (27.0-32.0); Mean Corpuscular Volume 92.5 fL (80-94); Mean Platelet Vol. 8.7 fl (6.2-12.0); Monocyte# 0.39 X10^3/uL; Monocyte% 7.2 % (0-10); Neutrophil % 49.4 % (47-70); POSITIVE COUNT NO; POSITIVE DIFFERENTIAL NO; POSITIVE MORPHOLOGY NO; Platelet Count 302 K/mm3 (150-450); RBC Distribution Width CV 13.5 % (11.6-14.6); RBC Distribution Width SD 45.3 fl (35.1-43.9); Red Blood Count 4.77 M/mm3 (4.6-6.2); White Blood Count 5.5 K/mm3 (4.4-11.0)
[2018-03-08 17:29] LABS: Anion Gap 6 (5-15); BUN 18 mg/dL (7-18); BUN/Creat Ratio 17.1 RATIO (10-20); Calcium,Total 8.7 mg/dL (8.5-10.1); Chloride 106 mmol/L (98-107); Creatinine, Serum 1.05 mg/dL (0.70-1.30); EST Glomerular Filtration Rate 75 mL/min (>60); Est Glom Filt Rate - Afr Amer 90 mL/min (>60); Glucose 93 mg/dL (74-106); Potassium 3.7 mmol/L (3.5-5.1); Sodium Level 142 mmol/L (136-145)
[2018-03-20 13:54] VITALS: BMI 30.7
[2018-03-22 10:16] LABS: ACT Activated Clotting Time 224 sec (74-137)
--- NOTE | 2018-03-22 10:23 | CL.I_ITS ---
Patient Name: ALVARO HALL Study Date: 03/22/2018 Performing: Paris Jaeger MD Ht: 66.14 inches 168 cm : 1950 Wt: 189.6 lbs 86 kg Age: 67 Gender: male BSA: 1.96 PROCEDURE(S) PERFORMED [id number], CORONARY OR GRAFT, INITIAL VESSEL CLINICAL PROFILE AND CO-MORBIDITIES Heart Failure: None Angina Classification Anginal Classification w/in 2 Weeks: CCS II CAD Presentations: Stable angina. CONCLUSIONS iFR Mid LAD 0.90 RECOMMENDATIONS CABG(LAD/D2/RPLV/?LCX vs multi-vessel PCI INTERVENTION INFORMATION LESION SITE: LAD (Mid) Lesion Complexity: Non-High/Non-C Pre Stenosis: 65-70 % Pre intervention GISSELLE flow: 3 Post Stenosis: 65-70 % Post intervention GISSELLE flow: 3 Lesion Devices: Taggify 6 Fr XB3.0 100cm Guide Catheter IGT Devices ( Formerly [employer]) Coronary FFR Wire COMPLICATIONS No Complications PROCEDURE MEDICATIONS Versed 1 mg IV Fentanyl 50 mcg IV Oxygen: 2 L/min via nasal cannula Heparin diluted in 23cc Heparinized saline. Patient given 5cc IA of this solution. 03/22/2018 09:16:30 Heparin 6000 unit(s) IV 03/22/2018 09:49:23 Verapamil 2.5mg, Ntg 100mcgs, 2000 units of Heparin diluted in 23cc Heparinized saline. Patient give n 5cc IA of this solution. 03/22/2018 09:16:30 SUMMARY OF HEMODYNAMIC DATA Time AIR REST ECG 07:11:59 AO 111/65 (87) SA 09:17:48 LV 120/0, 17 09:26:24 LV 118/1, 17 09:26:32 LV 119/1, 19 09:28:11 LVp 122/0, 16 09:28:15 AOp 117/62 (87) 09:28:20 Signed By Paris Jaeger MD On 03/22/2018 10:21:31 Paris Jaeger MD
--- NOTE | 2018-03-22 11:44 | CL.D_ITS ---
Patient Name: ALVARO HALL Study Date: 03/22/2018 Performing: Rodger Newell MD Ht: 66.14 inches 168 cm : 1950 Wt: 189.6 lbs 86 kg Age: 67 Gender: male BSA: 1.96 PROCEDURE(S) PERFORMED VQ72-MZS/COR/LV IL16-TNP, CORONARY OR GRAFT, INITIAL VESSEL CLINICAL PROFILE AND INDICATIONS Heart Failure: None Angina Classification Anginal Classification w/in 2 Weeks: CCS II CAD Presentations: Stable angina. CONCLUSIONS Previously placed stent in the second diagonal vessel patent with a post stent, with an area of post stent with 80% stenosis. Left anterior descending artery stgent i spatent with mild in-stent stgenosi s. Left circumflex artery with moderate mid segment disease. Right coronary artery with patent stents and an 80% stenosis to the origin of the posterolateral vessel. RECOMMENDATIONS Referred for immediate PCI Staged for FFR DESCRIPTION OF PROCEDURE The patient arrived to the procedure lab. The risks and benefits of the procedure as well as a full d escription of our services here and current unavailability of surgical backup were fully explained to the patient and/or their significant other prior to the catheterization. The Timeout was completed, verifying the correct patient and procedure. The patient's procedural site was prepped and draped in the usual fashion. Local anesthetic was given subcutaneously to right radial region with Lidocaine 2% . Using a modified Seldinger technique, arterial access was obtained via the right radial artery, a 6 Fr sheath was inserted. Left Coronary Artery selective angiography was performed in multiple views u sing a 5 Fr. 4.0 [place] catheter. Right Coronary Artery selective angiography was then performed in mu ltiple views using a 5 Fr. 4.0 [place] catheter. Left Ventriculography was performed in GARIBAY projection using a 5 Fr. Pigtail catheter. LV to AO pullback pressures were then recorded.The arterial sheath was pulled and a TR Band was applied for hemostasis 15cc CORONARY ANGIOGRAPHY DOMINANCE: Right Dominant LEFT HEART ASSESSMENT Left Ventricular Ejection Fraction: by LV Gram 60 % Normal LV wall motion Normal Left Ventricular systolic function LEFT MAIN: Angiographically normal LEFT ANTERIOR DECENDING ARTERY: MID LAD: Previously placed stent is patent, Instent restenosis 40%. DIAGONAL 2: Proximal - Previously placed stent is patent, Mid-80% Stenosis. CIRCUMFLEX ARTERY: Mid-Irregular 60% Stenosis. RIGHT CORONARY ARTERY: PROX RCA: Previously placed stent is patent MID RCA: Previously placed stent is patent DISTAL RCA: Previously placed stent is patent RT PLV: 80 % Stenosis COMPLICATIONS No Complications PROCEDURE MEDICATIONS Versed 1 mg IV Fentanyl 50 mcg IV Oxygen: 2 L/min via nasal cannula Heparin diluted in 23cc Heparinized saline. Patient given 5cc IA of this solution. 03/22/2018 09:16:30 Heparin 6000 unit(s) IV 03/22/2018 09:49:23 Verapamil 2.5mg, Ntg 100mcgs, 2000 units of Heparin diluted in 23cc Heparinized saline. Patient give n 5cc IA of this solution. 03/22/2018 09:16:30 SUMMARY OF HEMODYNAMIC DATA Time AIR REST ECG 07:11:59 AO 111/65 (87) SA 09:17:48 LV 120/0, 17 09:26:24 LV 118/1, 17 09:26:32 LV 119/1, 19 09:28:11 LVp 122/0, 16 09:28:15 AOp 117/62 (87) 09:28:20 Signed By Rodger Newell MD On 03/22/2018 11:42:33 Rodger Newell MD
== END 2018-03-22 13:00 | disposition home or self-care (01) ==
LOC: CLSP 06:45
PROVIDERS: Family Provider Family Medicine; PCP Family Medicine; Referring Provider Internal Medicine Cardiovascular Disease; Visit Provider Internal Medicine Cardiovascular Disease
DX: I25.119 Atherosclerotic heart disease of native coronary artery with unspecified angina pectoris (principal); E78.5 Hyperlipidemia, unspecified; E66.9 Obesity, unspecified; Z79.02 Long term (current) use of antithrombotics/antiplatelets; Z79.82 Long term (current) use of aspirin; Z79.899 Other long term (current) drug therapy; Z95.5 Presence of coronary angioplasty implant and graft
CPT/HCPCS: 36415; 80048; 85025; 85347; 93005; 93458; 93571; 99152; 99153; J7040; Q9967; C1769; C1887; C1894

== ENCOUNTER 2018-04-03 09:55 | Day surgery (SDC) | payer MEDICARE, OTHER, SELFPAY ==
[2018-03-20 13:54] VITALS: BMI 30.7
[2018-04-02 07:09] VITALS: BMI 30.7
[2018-04-03] VITALS (12 sets, daily range): BP systolic 98–152; BP diastolic 45–87; PULSE 63–90; RESP 13–23; TEMP 36.8–37.1; O2SAT 94–100; BMI 30.5; BMI 30.7
[2018-04-03] MEDS: 0.9% Normal Saline 1,000 ML 150 ML IV (15:00)
--- NOTE | 2018-04-03 15:21 | EKG12_ITS ---
Test Reason : OST PCI Blood Pressure : / mmHG Vent. Rate : 061 BPM Atrial Rate : 061 BPM P-R Int : 168 ms QRS Dur : 072 ms QT Int : 422 ms P-R-T Axes : 011 -25 011 degrees QTc Int : 424 ms Normal sinus rhythm Inferior infarct (cited on or before 04-APR-2017) Abnormal ECG When compared with ECG of 05-APR-2017 04:12, No significant change was found Confirmed by RALPH FIELD, DASH ([id number]), staff editor GEREMIAS FELDER ([id number]) on 04/05/2018 9:30:47 AM Referred By: Tian Manning Confirmed By:DASH ROSAS MD
--- NOTE | 2018-04-03 15:54 | CRPHASE1 ---
Patient Data/Charges Other Physician:: Tian Manning Phase II:: Yes Risk Factors/Lifestyle Height: 1.68 m Weight:: 86.183 kg BMI: 30.7 Family History: Family History (Last Reviewed 03/08/18 @ 15:40 by Rodger Newell MD) Father CAD (coronary artery disease) Discharge/Home/Social Eval Marital Status:
--- NOTE | 2018-04-03 15:58 | CRPH1.INSTRU ---
General Education CAD and cardiac anatomy and function:: Patient communicates acknowledgment Explanation of diagnoses and procedures:: Patient communicates acknowledgment Sign/Symptoms of IA:: Patient communicates acknowledgment Antiplatelet therapy: Patient communicates acknowledgment Proper use of NTG-SL: Not instructed Emergency procedures and activation of EMS: Patient communicates acknowledgment Compliance of all prescribed medications: Patient communicates acknowledgment Smoking Nicotine/Smoking Response Code:: Needs reinforcement Dyslipidemia Dyslipidemia Response Code:: Needs reinforcement Overweight/Obesity Overweight/Obesity:: Needs reinforcement Hypertension Hypertension:: Needs reinforcement Heart Disease Heart Disease Response Code:: Needs reinforcement Diabetes Diabetes:: Needs reinforcement Metabolic Syndrome Metabolic Syndrome Response Code:: Needs reinforcement Sedentary Sedentary Response Code:: Needs reinforcement Stress Stress Response Code:: Needs reinforcement
[2018-04-03 17:51] LABS: ACT Activated Clotting Time 257 sec (74-137)
[2018-04-03] MEDS: Tamsulosin HCl 0.4 MG Capsule PO (21:34)
[2018-04-03] MEDS: Metoprolol Tartrate 25 MG Tablet PO (21:34)
[2018-04-03] MEDS: Pravastatin 40 MG Tablet PO (21:34)
[2018-04-04] VITALS (12 sets, daily range): BP systolic 97–129; BP diastolic 45–74; PULSE 62–94; RESP 15–24; TEMP 36.4–37.1; O2SAT 90–96
[2018-04-04 04:08] LABS: Hematocrit 40.3 % (40-54); Hemoglobin 13.4 g/dl (13.0-16.5); Mean Corp Hgb Conc 33.3 g/gl (32-36); Mean Corpuscular Hgb 30.9 pg (27.0-32.0); Mean Corpuscular Volume 93.1 fL (80-94); Mean Platelet Vol. 8.9 fl (6.2-12.0); Platelet Count 252 K/mm3 (150-450); RBC Distribution Width CV 13.5 % (11.6-14.6); RBC Distribution Width SD 44.8 fl (35.1-43.9); Red Blood Count 4.33 M/mm3 (4.6-6.2); Scan Indicated on CBC? Y/N NO; White Blood Count 8.8 K/mm3 (4.4-11.0)
[2018-04-04 04:17] LABS: Anion Gap 8 (5-15); BUN 14 mg/dL (7-18); BUN/Creat Ratio 17.9 RATIO (10-20); Calcium,Total 7.9 mg/dL (8.5-10.1); Chloride 111 mmol/L (98-107); Cholesterol 119 mg/dL (200); Creatinine, Serum 0.78 mg/dL (0.70-1.30); EST Glomerular Filtration Rate 105 mL/min (>60); Est Glom Filt Rate - Afr Amer 127 mL/min (>60); Glucose 111 mg/dL (74-106); High Density Lipoprotein 33 mg/dL; Potassium 3.7 mmol/L (3.5-5.1); Sodium Level 143 mmol/L (136-145); Triglycerides 124 mg/dL; Very Low Density Lipoprotein 25 mg/dL (5-40)
--- NOTE | 2018-04-04 06:51 | PCM.DC.CCA ---
Discharge Diet: Low fat/ Low Cholesterol Discharge Activity: Return to Normal Activity May shower in (days): 1 May resume sexual activity in: 1-2 weeks Lifting Restrictions: Do not lift anything greater than 10 pounds for 3 days Call your doctor if your incision/area has: Continuous Slow Oozing, Sudden Increased Bleeding, Increased Pain/ Swelling, Increased Redness, Foul Smelling Discharge, Swelling at the incision site Call your doctor if you observe: Fever of 101 or Higher, Shortness of breath, Chest pain Remove Dressing in (days):: 1 - No tub baths for 5 days Cleanse incision/area with: Soap & Water Additional Instructions: You will continue with Aspirin therapy. You will remain on Plavix for at least one year. If anyone asks you to stop this, please contact the [facility] Office first, . We will contact you soon after discharge to schedule a hospital follow-up in approximately 2 weeks. If you have any questions or concerns, please call the [facility] Office at [phone]. Allergies/Adverse Reactions: Allergies ticagrelor [From Brilinta] Adverse Reaction (Verified 04/03/18 15:36) Orthopnea pt stated he can not breath when he lays down Medications to take at Discharge clopidogrel 75 mg tablet 75 mg PO QDAY #90 tab 04/10/17 tamsulosin 0.4 mg capsule 0.4 mg PO DAILY 02/01/18 aspirin 81 mg tablet,delayed release 81 mg PO QDAY #90 tab 03/06/18 metoprolol tartrate 25 mg tablet 25 mg PO BID #180 tab 03/06/18 pravastatin 40 mg tablet 40 mg PO QHS #90 tab 03/06/18 Primary Care Physician: Alvaro Smith DO [Primary Care Provider] - Test Results: Test results from this visit will be discussed in further detail at your follow-up appointment, if applicable. Please Follow Up With: We will contact you with date and time Cardiac Rehabilitation Info Cardiac Rehabilitation Program Information: Cardiac Rehabilitation is important for patients like you who are recovering from a heart problem. Cardiac rehabilitation programs are recognized as integral to the continued care of the patient with coronary heart disease. The cardiac rehabilitation program is designed to optimize a patient's physical, psychological, and social functioning. Health health care analyst work in cardiac rehabilitation programs and assist you with getting the treatments you need to get stronger and healthier - like exercise, healthy eating habits, and medications. Cardiac rehabilitation has been show to help people with heart problems live longer and have better life enjoyment than people who do not go to cardiac rehabilitation. Please contact the Cardiac Rehabilitation Program at [facility] at in two weeks if you have not heard from them.
--- NOTE | 2018-04-04 06:55 | DCINST_ITS ---
Discharge Diet: Low fat/ Low Cholesterol Discharge Activity: Return to Normal Activity May shower in (days): 1 May resume sexual activity in: 1-2 weeks Lifting Restrictions: Do not lift anything greater than 10 pounds for 3 days Call your doctor if your incision/area has: Continuous Slow Oozing, Sudden Increased Bleeding, Increased Pain/ Swelling, Increased Redness, Foul Smelling Discharge, Swelling at the incision site Call your doctor if you observe: Fever of 101 or Higher, Shortness of breath, Chest pain Remove Dressing in (days):: 1 - No tub baths for 5 days Cleanse incision/area with: Soap & Water Additional Instructions: You will continue with Aspirin therapy. You will remain on Plavix for at least one year. If anyone asks you to stop this, please contact the [facility] Office first, . We will contact you soon after discharge to schedule a hospital follow-up in approximately 2 weeks. If you have any questions or concerns, please call the [facility] Office at [phone]. Allergies/Adverse Reactions: Allergies ticagrelor [From Brilinta] Adverse Reaction (Verified 04/03/18 15:36) Orthopnea pt stated he can not breath when he lays down Medications to take at Discharge clopidogrel 75 mg tablet 75 mg PO QDAY #90 tab 04/10/17 tamsulosin 0.4 mg capsule 0.4 mg PO DAILY 02/01/18 aspirin 81 mg tablet,delayed release 81 mg PO QDAY #90 tab 03/06/18 metoprolol tartrate 25 mg tablet 25 mg PO BID #180 tab 03/06/18 pravastatin 40 mg tablet 40 mg PO QHS #90 tab 03/06/18 Primary Care Physician: Alvaro Smith DO [Primary Care Provider] - Test Results: Test results from this visit will be discussed in further detail at your follow- up appointment, if applicable. Please Follow Up With: We will contact you with date and time Cardiac Rehabilitation Info Cardiac Rehabilitation Program Information: Cardiac Rehabilitation is important for patients like you who are recovering from a heart problem. Cardiac rehabilitation programs are recognized as integral to the continued care of the patient with coronary heart disease. The cardiac rehabilitation program is designed to optimize a patient's physical, psychological, and social functioning. Health manager primary care work in cardiac rehabilitation programs and assist you with getting the treatments you need to get stronger and healthier - like exercise, healthy eating habits, and medications. Cardiac rehabilitation has been show to help people with heart problems live longer and have better life enjoyment than people who do not go to cardiac rehabilitation. Please contact the Cardiac Rehabilitation Program at [facility] at in two weeks if you have not heard from them.
--- NOTE | 2018-04-04 07:56 | PN.CARD_ITS ---
Subjectve: Patient seen and evaluated. Appears to be doing well. No complaints. Objective: Vital Signs Temp Pulse Resp BP Pulse Ox 98.6 F 72 21 H 129/71 H 90 04/04/18 04:00 04/04/18 06:00 04/04/18 06:00 04/04/18 06:00 04/04/18 06:00 Oxygen Delivery Method Room Air Weight: 188 lb 14.978 oz Body Mass Index (BMI) 30.5 Intake and Output for Last 24 Hours 04/02/18 04/03/18 04/04/18 23:59 23:59 23:59 Intake Total 740 / 740 908 / 908 Output Total 875 / 875 Balance 740 / 740 General: Awake, Alert, Oriented x 3 HEENT: PERRL, EOMI, Sclera Non Icteric Neck: Supple, Good ROM, No Lymph Node Enlargement Lungs: Clear to auscultation Cardiovascular: Regular Rhythm, Normal S1, Normal S2, No Murmurs, No Rubs, No Gallops Vascular: No Carotid Bruits, Normal Femoral Pulses, Normal Radial Pulses, Normal Dorsalis Pedal Pulse, Normal Posterior Tibial Pulses Abdomen: Bowel Sounds Present, Soft, Non Tender, No HSM, No Organomegaly Extremities: No Cyanosis, No Clubbing, No edema Neurological: No Focal Motor or Sensory Deficit Psych/Mental Status: Appropriate 04/04/18 03:45: WBC 8.8, RBC 4.33 L, Hgb 13.4, Hct 40.3, MCV 93.1, MCH 30.9, MCHC 33.3, RDW 13.5, RDW Differential 44.8 H, Plt Count 252, MPV 8.9 04/04/18 03:45: Sodium 143, Potassium 3.7, Chloride 111 H, Carbon Dioxide 24.0, Anion Gap 8, BUN 14, Creatinine 0.78, Est GFR (MDRD) Af Amer 127, Est GFR (MDRD) Non-Af 105, BUN/Creatinine Ratio 17.9, Glucose 111 H, Calcium 7.9 L, Triglycerides 124, Cholesterol 119, LDL Cholesterol 61, VLDL Cholesterol 25, HDL Cholesterol 33 L Rhythm: EKG: ECHO: Stress Test: Cardiac Cath: PCI: CT Surgery: Holter monitor: EPS: PPM: CXR: Chest CT Scan: Medical Necessity - Tobacco Use Smoking Status: Never smoker Tobacco Use: Non-smoker Assessment/Plan 1. Coronary artery disease * Patient is status post angioplasty and stenting of the diagonal vessel as well as the left circumflex artery. Procedure was successful. Patient has no complaints with regard to his groin today. * EKG remains unremarkable * Patient will be discharged for outpatient follow-up and reevaluation for an angioplasty to the posterolateral vessel at a later date which will be arranged through my office.
[2018-04-04] MEDS: Clopidogrel Bisulfate 75 MG Tablet PO (08:36)
[2018-04-04] MEDS: Metoprolol Tartrate 25 MG Tablet PO (08:36)
[2018-04-04] MEDS: Tamsulosin HCl 0.4 MG Capsule PO (08:36)
[2018-04-04] MEDS: Aspirin E.C. 81 MG Tablet PO (08:36)
--- NOTE | 2018-04-04 10:00 | EKG12_ITS ---
Test Reason : AM EKG Blood Pressure : / mmHG Vent. Rate : 070 BPM Atrial Rate : 070 BPM P-R Int : 188 ms QRS Dur : 080 ms QT Int : 402 ms P-R-T Axes : 021 -35 -08 degrees QTc Int : 434 ms Normal sinus rhythm Left axis deviation Low voltage QRS Inferior infarct , age undetermined Abnormal ECG When compared with ECG of 03-APR-2018 15:04, MANUAL COMPARISON REQUIRED, DATA IS UNCONFIRMED Confirmed by RALPH FIELD, DASH ([id number]), manuscript editor JELANI MORENO ([id number]) on 04/15/2018 5:33:38 PM Referred By: Tian Manning Confirmed By:DASH ROSAS MD
--- NOTE | 2018-04-04 10:05 | CL.I_ITS ---
Patient Name: ALVARO HALL Study Date: 04/03/2018 Performing: Tian Manning MD Ht: 66 inches 168 cm : 1950 Wt: 189.8 lbs 86 kg Age: 67 Gender: male BSA: 1.96 PROCEDURE(S) PERFORMED [id number] W OR WO PTCA, SINGLE CORONARY ARTERY [id number] W OR WO PTCA, EACH ADD'L ARTERY, SAME MAJOR [id number] W OR WO PTCA, SINGLE CORONARY ARTERY CLINICAL PROFILE AND CO-MORBIDITIES Indications: New Onset Angina <= 2 months, Worsening Angina Heart Failure: None Stress/Imaging Stress/Image Study Performed: No Angina Classification Anginal Classification w/in 2 Weeks: CCS III CAD Presentations: Unstable angina. Comorbidities/Risk Factors: Hypertension Dyslipidemia Prior PCI CONCLUSIONS Successful PTCA/PARTH mid DIAG#1 with a 2.25 x 16 Promus Synergy stent, post dilated with a 2.25 x 8 NC Balloon; 85%-->0%, no dissection. Pt had identical CP with balloon/stenting as he had at home. Successful PTCA/PARTH of mid LAD with a 3.0 x 16 Promus Synergy, 75%-->0%, no dissection. Successful PTCA/PARTH of mid LCX with a 3.5 x 28 Promus Synergy, post dilated with a 3.0 x 12 NC Balloo n; 75%-->0%, No dissection. RECOMMENDATIONS Highly recommend quitting all tobacco products Follow up with primary wire repairer Risk factor modification ASA Indefinitley Plavix for at least 12 months Routine post interventional care Refer for Outpatient Cardiac Rehab Manual sheath removal per protocol Elective PCI of proximal PL branch at bifurcation of PDA in 3 weeks. Successful Mynx closure. DESCRIPTION OF PROCEDURE The patient arrived to the procedure lab. The risks and benefits of the procedure as well as a full d escription of our services here and current unavailability of surgical backup were fully explained to the patient and/or their significant other prior to the catheterization. The Timeout was completed, verifying the correct patient and procedure. The patient's procedural site was prepped and draped in the usual fashion. Local anesthetic was given subcutaneously to right groin region with Lidocaine 2%. Using a modified Seldinger technique, arterial access was obtained via the right femoral artery, a 6 Fr sheath was inserted.. EBU 3.5 Guide catheter was inserted and engaged into the LCA. BMW Guide wire was advanced to the 1st Diagonal. Angiogram performed pre balloon dilatation. emerge 2.00x12 Balloon catheter was inserte d. PTCA balloon inflated at 7 atms for 12 secs. PTCA balloon inflated at 7 atms for 9 secs. Angiogram performed post balloon dilatation. Synergy 2.25x16 Drug Eluting stent was inserted. BMW in LAD Guide wire was inserted as a alex wire Synergy 3.00x16 Drug Eluting stent was inserted. Angiogram perform ed post stent deployment. Emerge 2.00x12 Balloon catheter was inserted. BMW Guide wire was advanced t o the Circumflex. Emerge 2.00x12 Balloon catheter was inserted. PTCA balloon inflated at 6 atms for 8 secs. PTCA balloon inflated at 8 atms for 8 secs. PTCA balloon inflated at 6 atms for 11 secs. Syner gy 3.00x24 Drug Eluting stent was inserted. Angiogram performed post stent deployment. NC Euphora 3.0 x12 Balloon catheter was inserted. PTCA balloon inflated at 12 atms for 8 secs. PTCA balloon inflated at 14 atms for 13 secs. PTCA balloon inflated at 12 atms for 8 secs. Angiogram perfo rmed post balloon dilatation. Contrast was injected through the sheath and the Right Iliac and Femora l artery were assessed for possible closure device. The arterial sheath was pulled and a Mynx closure device was deployed for hemostasis INTERVENTION INFORMATION LESION SITE: 1st Diagonal (Mid) Lesion Complexity: Non-High/Non-C, lesion at bifurcation: No, thrombus present: No, lesion length: 16 mm, culprit lesion: Yes Pre Stenosis: 85 % Pre intervention GISSELLE flow: 3 PROCEDURE: Drug Eluting Stent with pre and post dilatation Post Stenosis: 0 % Post intervention GISSELLE flow: 3 Lesion Devices: Medtronic 6 Fr EBU3.5 100cm Guide Catheter Le .014 BMW [place] Straight 190cm Killian Sci EMERGE MR 2.00x12 BALLOON Killian Sci Synergy MR PARTH 2.25x16 LESION SITE: LAD (Mid) Lesion Complexity: Non-High/Non-C, lesion at bifurcation: Yes, thrombus present: No, culprit lesion: No Pre Stenosis: 75 % Pre intervention GISSELLE flow: 3 PROCEDURE: Drug Eluting Stent with pre and post dilatation Post Stenosis: 0 % Post intervention GISSELLE flow: 3 Lesion Devices: Medtronic 6 Fr EBU3.5 100cm Guide Catheter Le .014 BMW [place] Straight 190cm Killian Sci Synergy MR PARTH 3.00x16 LESION SITE: Circumflex (Mid) Lesion Complexity: High/C, lesion at bifurcation: No, thrombus present: No, lesion length: 28 mm, cul prit lesion: No Pre Stenosis: 75 % Pre intervention GISSELLE flow: 3 PROCEDURE: Drug Eluting Stent with pre and post dilatation 0 % Post intervention GISSELLE flow: 3 Lesion Devices: Killian Sci EMERGE MR 2.00x12 BALLOON Killian Sci Synergy MR PARTH 3.00x24 Medtronic NC EUPHORA RX 3.0x12 BALLOON COMPLICATIONS No Complications PROCEDURE MEDICATIONS Oxygen: 2 L/min via nasal cannula Heparin 6000 unit(s) IV 04/03/2018 13:56:37 Heparin 4000 unit(s) IV 04/03/2018 14:22:38 Nitro 200 mcg IC 04/03/2018 13:58:21 Nitro 200 mcg IC 04/03/2018 13:58:21 Nitro 200 mcg IC 04/03/2018 14:06:29 IV Bolus: .9 NaCl 750ml total 04/03/2018 13:56:50 SUMMARY OF HEMODYNAMIC DATA Time AIR REST ECG 10:16:32 AO 123/63 (89) SA 13:57:44 Signed By Tian Manning MD On 04/04/2018 10:03:52 AM Tian Manning MD
== END 2018-04-04 09:40 | disposition home or self-care (01) ==
LOC: CLSP 09:55 → ICU 14:04
PROVIDERS: Family Provider Family Medicine; PCP Family Medicine; Referring Provider Internal Medicine Cardiovascular Disease; Visit Provider Internal Medicine Cardiovascular Disease
DX: I25.119 Atherosclerotic heart disease of native coronary artery with unspecified angina pectoris (principal); I10 Essential (primary) hypertension; E78.5 Hyperlipidemia, unspecified; E66.9 Obesity, unspecified; Z79.02 Long term (current) use of antithrombotics/antiplatelets; Z79.82 Long term (current) use of aspirin; Z79.899 Other long term (current) drug therapy; Z95.5 Presence of coronary angioplasty implant and graft
CPT/HCPCS: 80048; 80061; 85027; 85347; 92928; 92929; 93005; C1760; J7030; J7040; Q9967; C1725; C1769; C1874; C1887; C9600; C9601

== ENCOUNTER → 2018-04-08 11:21 | Outpatient (CLI) | payer MEDICARE, OTHER, SELFPAY ==
[2018-04-03 15:57] VITALS: BMI 30.7
[2018-04-08 10:22] VITALS: BMI 30.4
--- NOTE | 2018-04-08 11:25 | ADUL_ITS ---
Reason For Study: r/o Pseudo, s/p cath Right Velocities Common Iliac Artery, dist = 105 cm./sec. Supf Femoral Artery, prox = 97 cm./sec. Pulsatile venous flow, no arterial-venous connection visualized. Procedure Patient is scheduled for a repeat ultrasound after groin swelling decreases to better assess for AV fistula per Vijay Beavers DRY CANS OPERATOR at [facility]. Interpretation Summary Normal inspection of the right common femoral common femoral artery, proximal superficial femoral artery, external iliac artery and common femoral vein without evidence for pseudoaneurysm or fistula. Ordering Physician: Vijay Beavers Referring Physician: Alvaro Smith Performed By: Elisa Beavers, KRYSTA, RVT
== END ==
PROVIDERS: Family Provider Family Medicine; PCP Family Medicine; Referring Provider Nurse Practitioner Family; Visit Provider Nurse Practitioner Family
DX: I72.4 Aneurysm of artery of lower extremity (principal); I72.9 Aneurysm of unspecified site
CPT/HCPCS: 93926

== ENCOUNTER → 2018-04-15 12:38 | Outpatient (CLI) | payer MEDICARE, OTHER, SELFPAY ==
[2018-04-03 15:57] VITALS: BMI 30.7
[2018-04-08 10:22] VITALS: BMI 30.4
--- NOTE | 2018-04-15 12:39 | ADUL_ITS ---
Reason For Study: F/U rt groin lump/pain Right Velocities RT CATHEAD OPERATOR - .78 x .76 cm with a velocity of 112.0 cm/s RT CFV demonstrates normal phasic flow signal. No evidence of pseuroaneurysm or AV fistula. Procedure Exam performed in department. Interpretation Summary Normal diameter right common femoral artery with no evidence for pseudoaneurysm or fistula Ordering Physician: Vijay Beavers Referring Physician: Alvaro Smith Performed By: Aileen Rey RVT
== END ==
PROVIDERS: Family Provider Family Medicine; PCP Family Medicine; Referring Provider Nurse Practitioner Family; Visit Provider Nurse Practitioner Family
DX: I72.4 Aneurysm of artery of lower extremity (principal)
CPT/HCPCS: 93926

== ENCOUNTER 2018-05-08 09:31 | Day surgery (SDC) | payer MEDICARE, OTHER, SELFPAY ==
[2018-04-03 15:21] VITALS: BMI 30.5
[2018-04-03 15:57] VITALS: BMI 30.7
[2018-04-25 09:23] VITALS: BMI 30.4
[2018-04-25 10:29] LABS: Absolute Lymphocyte Count 1.52 X10^3/ul (0.83-4.51); Absolute Neutrophil Count 3.8 X10^3/uL (2.0-7.7); Basophil# 0.02 X10^3/uL; Basophil% 0.3 % (0-1); Eosinophil# 0.32 X10^3/uL; Hematocrit 46.2 % (40-54); Lymphocyte # 1.52 X10^3/ul (4.0); Lymphocyte % 23.6 % (19-41); Mean Corp Hgb Conc 32.5 g/gl (32-36); Mean Corpuscular Hgb 30.6 pg (27.0-32.0); Mean Corpuscular Volume 94.3 fL (80-94); Mean Platelet Vol. 9.2 fl (6.2-12.0); Monocyte# 0.79 X10^3/uL; Monocyte% 12.3 % (0-10); Neutrophil # 3.78 X10^3/uL (2.7-7.7); Neutrophil % 58.6 % (47-70); Platelet Count 393 K/mm3 (150-450); RBC Distribution Width CV 13.7 % (11.6-14.6); RBC Distribution Width SD 45.6 fl (35.1-43.9); White Blood Count 6.4 K/mm3 (4.4-11.0)
[2018-04-25 10:34] LABS: POSITIVE COUNT NO; POSITIVE DIFFERENTIAL NO; POSITIVE MORPHOLOGY NO
[2018-04-25 10:37] LABS: Prothrombin Time (Protime)PT. 13.4 SECONDS (11.7-14.9)
[2018-04-25 10:56] LABS: Anion Gap 4 (5-15); BUN 14 mg/dL (7-18); Calcium,Total 8.6 mg/dL (8.5-10.1); Chloride 105 mmol/L (98-107); Creatinine, Serum 0.78 mg/dL (0.70-1.30); EST Glomerular Filtration Rate 105 mL/min (>60); Est Glom Filt Rate - Afr Amer 127 mL/min (>60); Glucose 93 mg/dL (74-106); Potassium 3.8 mmol/L (3.5-5.1); Sodium Level 139 mmol/L (136-145)
[2018-05-07 07:39] VITALS: BMI 30.2
[2018-05-08] VITALS (27 sets, daily range): BP systolic 93–136; BP diastolic 50–87; PULSE 61–92; RESP 10–21; TEMP 36.2–36.6; O2SAT 93–98; BMI 31.1
--- NOTE | 2018-05-08 11:20 | CL.I_ITS ---
Patient Name: ALVARO HALL Study Date: 05/08/2018 Performing: Tian Manning MD Ht: 66.14 inches 168 cm : 1950 Wt: 187.39 lbs 85 kg Age: 67 Gender: male BSA: 1.95 PROCEDURE(S) PERFORMED [id number] W OR WO PTCA, SINGLE CORONARY ARTERY [id number], EACH ADD'L CORONARY ART, SAME MAJOR CLINICAL PROFILE AND CO-MORBIDITIES Indications: Worsening Angina, Stable Known CAD Heart Failure: None Stress/Imaging Stress/Image Study Performed: No Angina Classification Anginal Classification w/in 2 Weeks: CCS III CAD Presentations: Unstable angina. Comorbidities/Risk Factors: Hypertension Dyslipidemia Prior PCI CONCLUSIONS Successful PTCA/PARTH ostial PL Branch of RCA with a 2.5 x 8 Promus Synergy, post dilated with a 2.5 x 8 NC Balloon; 85%-->0%, no dissection. Pt had identical CP symptoms during stent positioning as he h as been having at home. CP resolved after balloon deflation. Successful PCI with PTCA to the intersection of the PDA/PL branch with a 1.5 x 8, followed by a 2.0 x 8, followed by a 2.5 x 8 NC Balloon to correct any potential stent protrusion in to RCA; 50%-->0%, n o dissection. RECOMMENDATIONS Highly recommend quitting all tobacco products Follow up with primary cook chili Risk factor modification ASA Indefinitley Plavix for at least 12 months Routine post interventional care Refer for Outpatient Cardiac Rehab Manual sheath removal per protocol Follow up with Dr. Newell Manual sheath removal. DESCRIPTION OF PROCEDURE The patient arrived to the procedure lab. The risks and benefits of the procedure as well as a full d escription of our services here and current unavailability of surgical backup were fully explained to the patient and/or their significant other prior to the catheterization. The Timeout was completed, verifying the correct patient and procedure. The patient's procedural site was prepped and draped in the usual fashion. Local anesthetic was given subcutaneously to right groin region with Lidocaine 2%. Using a modified Seldinger technique, arterial access was obtained via the right femoral artery, a 6 Fr 55cm sheath was inserted.. HS 2 Guide catheter was inserted and engaged into the RCA. BMW Guide wire was advanced to the RPL . BMW Guide wire was advanced to the Right PDA. 2.00X8 Balloon catheter was inserted. Balloon cathete r was advanced across lesion in the POSTERIOR LATERAL ostial PTCA balloon inflated at 4 atms for 7 s ecs. 2.50X8 SYNERGY Drug Eluting stent was inserted. Drug Eluting stent was advanced across the lesio n in the POSTERIOR LATERAL ostial Angiogram performed post stent deployment. 2.50X8 NC EMERGE Balloo n catheter was inserted post stent. 2.00X8 EMERGE Balloon catheter was inserted. 1.50X8 EMERGE Balloo n catheter was inserted. Balloon catheter was advanced across lesion in the posterior descending, ost ial. PTCA balloon inflated at 12 atms for 10 secs. PTCA balloon inflated at 12 atms for 8 secs. PTCA balloon inflated at 12 atms for 10 secs. 2.00X8 EMERGE Balloon catheter was inserted. Balloon cathete r was advanced across lesion in the posterior descending, ostial. PTCA balloon inflated at 14 atms for 10 secs. PTCA balloon inflated at 12 atms for 12 secs. 2.50X8 NC EMERGE Balloon catheter was inserted. Balloon catheter was advanced across lesion in the posterior descending, ostial. PTCA b alloon inflated at 10 atms for 10 secs. PTCA balloon inflated at 12 atms for 16 secs. PTCA balloon in flated at 12 atms for 10 secs. 2.00X8 EMERGE Balloon catheter was inserted. Balloon catheter was adva nced across lesion in the POSTERIOR LATERAL ostial Angiogram performed The arterial sheath was sutu red in place and capped INTERVENTION INFORMATION LESION SITE: RPL (1st) Lesion Complexity: High/C, lesion at bifurcation: Yes, thrombus present: No, culprit lesion: Yes Pre Stenosis: 85 % Pre intervention GISSELLE flow: 3 PROCEDURE: Drug Eluting Stent with pre and post dilatation Post Stenosis: 0 % Post intervention GISSELLE flow: 3 Lesion Devices: Medtronic 6 Fr HSII 100cm Guide Catheter Le .014 BMW [place] Straight 190cm Killian Sci EMERGE MR 2.00x08 BALLOON Killian Sci NC EMERGE MR 2.50x08 BALLOON Killian Sci Synergy MR PARTH 2.50x08 LESION SITE: RT PDA (Ostial) Lesion Complexity: High/C, lesion at bifurcation: Yes, thrombus present: No, lesion length: 8 mm, cul prit lesion: No Pre Stenosis: 50 % Pre intervention GISSELLE flow: 3 PROCEDURE: Balloon Angioplasty Post Stenosis: 0 % Post intervention GISSELLE flow: 3 Lesion Devices: Le .014 BMW [place] Straight 190cm Killian Sci EMERGE MR 2.00x08 BALLOON Killian Sci NC EMERGE MR 2.50x08 BALLOON Killian Sci EMERGE MR 1.50x08 BALLOON COMPLICATIONS No Complications PROCEDURE MEDICATIONS Oxygen: 2 L/min via nasal cannula Heparin 6000 unit(s) IV 05/08/2018 10:28:34 Nitro 200 mcg IC 05/08/2018 10:30:34 Nitro 200 mcg IC 05/08/2018 10:30:34 SUMMARY OF HEMODYNAMIC DATA Time AIR REST ECG 09:58:11 AO 129/69 (95) SA 10:29:47 11:18:07 Signed By Tian Manning MD On 05/08/2018 11:19:42 AM Tian Manning MD
--- NOTE | 2018-05-08 12:00 | CRPHASE1 ---
Patient Data/Charges Former Patient:: Phase I Yarn Spinner:: Tian Manning Reason Not Completed:: Patient previously seen by CR staff and discussion took place about Phase II CR post-discharge. Patient has been provided with previous printed material A Guide to Cardiac Rehab and a list of cardiac rehab programs with previous PCI interventions on 02/26/17, 04/03/17 and on 04/03/2018. Phase II Referral:: [facility] Start Phase II:: post-discharge Visits:: 36 session over 12 weeks every MWF Risk Factors/Lifestyle Family History: Family History (Last Reviewed 04/08/18 @ 10:29 by Talya Ellington) Father CAD (coronary artery disease)
--- NOTE | 2018-05-08 12:04 | CRPHASE1_ITS ---
Patient Data/Charges Former Patient:: Phase I Qualitative Researcher:: Tian Manning Reason Not Completed:: Patient previously seen by CR staff and discussion took place about Phase II CR post-discharge. Patient has been provided with previous printed material A Guide to Cardiac Rehab and a list of cardiac rehab programs with previous PCI interventions on 02/26/17, 04/03/17 and on 04/03/2018. Phase II Referral:: [facility] Start Phase II:: post-discharge Visits:: 36 session over 12 weeks every MWF Risk Factors/Lifestyle Family History: Family History (Last Reviewed 04/08/18 @ 10:29 by Talya Ellington) Father CAD (coronary artery disease)
--- NOTE | 2018-05-08 12:04 | CRPH1.INSTRU ---
General Education CAD and cardiac anatomy and function:: Not instructed Explanation of diagnoses and procedures:: Not instructed Sign/Symptoms of DC:: Not instructed Antiplatelet therapy: Not instructed Proper use of NTG-SL: Not instructed Emergency procedures and activation of EMS: Not instructed Compliance of all prescribed medications: Not instructed - Patient has previously been seen by CR staff following previous PCI intervention procedures on 02/26/17, 04/03/17 and on 04/03/18. Patient has printed material A Guide to Your Cardiac Rehab and a list of area cardiac rehab programs.
[2018-05-08] MEDS: 0.9% Normal Saline 1,000 ML 150 ML IV (12:30)
--- NOTE | 2018-05-08 13:48 | PCM.DC.CCA ---
Discharge Diet: Low fat/ Low Cholesterol Discharge Activity: Return to Normal Activity May shower in (days): 1 May resume sexual activity in: 1-2 weeks Lifting Restrictions: Do not lift anything greather than 10 pounds for 3 days Call your doctor if your incision/area has: Continuous Slow Oozing, Sudden Increased Bleeding, Increased Pain/ Swelling, Increased Redness, Foul Smelling Discharge, Swelling at the incision site Call your doctor if you observe: Fever of 101 or Higher, Shortness of breath, Chest pain Remove Dressing in (days):: 1 - No tub bathes for 5 days Cleanse incision/area with: Soap & Water Additional Instructions: You will continue with Aspirin therapy. You will remain on Plavix for at least one year. If anyone asks you to stop your Plavix, please contact the [facility] first at [phone]. Allergies/Adverse Reactions: Allergies ticagrelor [From Brilinta] Adverse Reaction (Verified 04/08/18 10:28) Orthopnea pt stated he can not breath when he lays down Medications to take at Discharge tamsulosin 0.4 mg capsule 0.4 mg PO DAILY 02/01/18 aspirin 81 mg tablet,delayed release 81 mg PO QDAY #90 tab 03/06/18 metoprolol tartrate 25 mg tablet 25 mg PO BID #180 tab 03/06/18 pravastatin 40 mg tablet 40 mg PO QHS #90 tab 03/06/18 clopidogrel 75 mg tablet 75 mg PO QDAY #90 tab 04/18/18 Primary Care Physician: Alvaor Smith DO [Primary Care Provider] - Test Results: Test results from this visit will be discussed in further detail at your follow-up appointment, if applicable. Please Follow Up With: Dr. Newell When: 05/31/2018 at 9:30 AM Cardiac Rehabilitation Info Cardiac Rehabilitation Program Information: Cardiac Rehabilitation is important for patients like you who are recovering from a heart problem. Cardiac rehabilitation programs are recognized as integral to the continued care of the patient with coronary heart disease. The cardiac rehabilitation program is designed to optimize a patient's physical, psychological, and social functioning. Health transitions rn care coordinator work in cardiac rehabilitation programs and assist you with getting the treatments you need to get stronger and healthier - like exercise, healthy eating habits, and medications. Cardiac rehabilitation has been show to help people with heart problems live longer and have better life enjoyment than people who do not go to cardiac rehabilitation. Please contact the Cardiac Rehabilitation Program at [facility] at in two weeks if you have not heard from them.
--- NOTE | 2018-05-08 13:53 | DCINST_ITS ---
Discharge Diet: Low fat/ Low Cholesterol Discharge Activity: Return to Normal Activity May shower in (days): 1 May resume sexual activity in: 1-2 weeks Lifting Restrictions: Do not lift anything greather than 10 pounds for 3 days Call your doctor if your incision/area has: Continuous Slow Oozing, Sudden Increased Bleeding, Increased Pain/ Swelling, Increased Redness, Foul Smelling Discharge, Swelling at the incision site Call your doctor if you observe: Fever of 101 or Higher, Shortness of breath, Chest pain Remove Dressing in (days):: 1 - No tub bathes for 5 days Cleanse incision/area with: Soap & Water Additional Instructions: You will continue with Aspirin therapy. You will remain on Plavix for at least one year. If anyone asks you to stop your Plavix, please contact the [facility] first at [phone]. Allergies/Adverse Reactions: Allergies ticagrelor [From Brilinta] Adverse Reaction (Verified 04/08/18 10:28) Orthopnea pt stated he can not breath when he lays down Medications to take at Discharge tamsulosin 0.4 mg capsule 0.4 mg PO DAILY 02/01/18 aspirin 81 mg tablet,delayed release 81 mg PO QDAY #90 tab 03/06/18 metoprolol tartrate 25 mg tablet 25 mg PO BID #180 tab 03/06/18 pravastatin 40 mg tablet 40 mg PO QHS #90 tab 03/06/18 clopidogrel 75 mg tablet 75 mg PO QDAY #90 tab 04/18/18 Primary Care Physician: Alvaro Smith DO [Primary Care Provider] - Test Results: Test results from this visit will be discussed in further detail at your follow- up appointment, if applicable. Please Follow Up With: Dr. Newell When: 05/31/2018 at 9:30 AM Cardiac Rehabilitation Info Cardiac Rehabilitation Program Information: Cardiac Rehabilitation is important for patients like you who are recovering from a heart problem. Cardiac rehabilitation programs are recognized as integral to the continued care of the patient with coronary heart disease. The cardiac rehabilitation program is designed to optimize a patient's physical, psychological, and social functioning. Health clinical care coordinator work in cardiac rehabilitation programs and assist you with getting the treatments you need to get stronger and healthier - like exercise, healthy eating habits, and medications. Cardiac rehabilitation has been show to help people with heart problems live longer and have better life enjoyment than people who do not go to cardiac rehabilitation. Please contact the Cardiac Rehabilitation Program at [facility] at in two weeks if you have not heard from them.
--- NOTE | 2018-05-08 13:53 | PCM.PN.BLA ---
Progress Note Patient is not on BRANDON inhibitor or ARB previously due to hypotension.
[2018-05-08] MEDS: 0.9% NaCl Peripheral Flush Adult/Peds IV (16:11)
--- NOTE | 2018-05-08 18:40 | NURSING ---
REVIEWED PAULINO CALDERA RN CHARTING AND AGREE WITH ASSESSMENT FINDINGS
--- NOTE | 2018-05-08 20:10 | NURSING ---
Patient up OOB at this time, ambulated in the hallway, back to chair, tolerated well, right groin site benign.
[2018-05-08] MEDS: Pravastatin 40 MG Tablet PO (21:13)
[2018-05-08] MEDS: Tamsulosin HCl 0.4 MG Capsule PO (21:13)
[2018-05-08] MEDS: Metoprolol Tartrate 25 MG Tablet PO (21:13)
[2018-05-09] VITALS (15 sets, daily range): BP systolic 90–120; BP diastolic 51–68; PULSE 66–82; RESP 12–24; TEMP 36.6–37.1; O2SAT 92–96
[2018-05-09 04:23] LABS: Hematocrit 41.8 % (40-54); Hemoglobin 13.7 g/dl (13.0-16.5); Mean Corp Hgb Conc 32.8 g/gl (32-36); Mean Corpuscular Hgb 30.6 pg (27.0-32.0); Mean Corpuscular Volume 93.3 fL (80-94); Mean Platelet Vol. 8.7 fl (6.2-12.0); Platelet Count 231 K/mm3 (150-450); RBC Distribution Width CV 13.4 % (11.6-14.6); RBC Distribution Width SD 44.3 fl (35.1-43.9); Red Blood Count 4.48 M/mm3 (4.6-6.2); White Blood Count 6.6 K/mm3 (4.4-11.0)
[2018-05-09 04:26] LABS: Scan Indicated on CBC? Y/N NO
[2018-05-09 04:33] LABS: Anion Gap 6 (5-15); BUN 16 mg/dL (7-18); Calcium,Total 7.9 mg/dL (8.5-10.1); Chloride 110 mmol/L (98-107); EST Glomerular Filtration Rate 102 mL/min (>60); Est Glom Filt Rate - Afr Amer 123 mL/min (>60); Estimated Creatinine Clearance 79.75 ml/min; Glucose 106 mg/dL (74-106); Potassium 3.7 mmol/L (3.5-5.1); Sodium Level 142 mmol/L (136-145)
[2018-05-09] MEDS: Metoprolol Tartrate 25 MG Tablet PO (07:14)
[2018-05-09] MEDS: Clopidogrel Bisulfate 75 MG Tablet PO (07:14)
[2018-05-09] MEDS: Aspirin E.C. 81 MG Tablet PO (07:15)
--- NOTE | 2018-05-09 10:00 | EKG12_ITS ---
Test Reason : PCI Blood Pressure : / mmHG Vent. Rate : 064 BPM Atrial Rate : 064 BPM P-R Int : 164 ms QRS Dur : 082 ms QT Int : 418 ms P-R-T Axes : 008 -42 008 degrees QTc Int : 431 ms Normal sinus rhythm Left axis deviation Low voltage QRS Abnormal ECG Confirmed by RALPH FIELD, DASH ([id number]), manuscript editor KEVYN DAN ([id number]) on 05/14/2018 1:17:53 PM Referred By: Tian Manning Confirmed By:DASH ROSAS MD
--- NOTE | 2018-05-09 10:11 | PCM.PN.CARD ---
Subjectve: Patient feeling very well this morning, no chest pain, markedly improved. Right groin is clean/dry/intact, no thrills, bruits or hematoma. Telemetry showed normal sinus rhythm with rare PVCs. EKG shows normal sinus rhythm, no acute changes. Hemoglobin and creatinine are within nominal limits. Objective: Vital Signs Temp Pulse Resp BP Pulse Ox 98.7 F 73 24 H 117/67 95 05/09/18 07:00 05/09/18 07:14 05/09/18 07:00 05/09/18 07:14 05/09/18 09:28 Oxygen Delivery Method Room Air Weight: 193 lb 1.999 oz Body Mass Index (BMI) 31.1 Intake and Output for Last 24 Hours 05/07/18 05/08/18 05/09/18 23:59 23:59 23:59 Intake Total 2140 / 2140 90 / 90 Output Total 1100 / 1100 800 / 800 Balance 1040 / 1040 -710 / -710 General: Awake, Alert, Oriented x 3 HEENT: PERRL, EOMI, Sclera Non Icteric Neck: Supple, Good ROM, No Lymph Node Enlargement Lungs: Clear to auscultation Cardiovascular: Regular Rhythm, Normal S1, Normal S2, No Murmurs, No Rubs, No Gallops Vascular: No Carotid Bruits, Normal Femoral Pulses, Normal Radial Pulses, Normal Dorsalis Pedal Pulse, Normal Posterior Tibial Pulses Abdomen: Bowel Sounds Present, Soft, Non Tender, No HSM, No Organomegaly Extremities: No Cyanosis, No Clubbing, No edema Neurological: No Focal Motor or Sensory Deficit 05/09/18 04:10: Sodium 142, Potassium 3.7, Chloride 110 H, Carbon Dioxide 26.0, Anion Gap 6, BUN 16, Creatinine 0.80, Est GFR (MDRD) Af Amer 123, Est GFR (MDRD) Non-Af 102, BUN/Creatinine Ratio 20.0, Glucose 106, Calcium 7.9 L 05/09/18 04:10: WBC 6.6, RBC 4.48 L, Hgb 13.7, Hct 41.8, MCV 93.3, MCH 30.6, MCHC 32.8, RDW 13.4, RDW Differential 44.3 H, Plt Count 231, MPV 8.7 Rhythm: EKG: ECHO: Stress Test: Cardiac Cath: PCI: CT Surgery: Holter monitor: EPS: PPM: CXR: Chest CT Scan: Medical Necessity - Tobacco Use Smoking Status: Never smoker Assessment/Plan 1. Coronary artery disease: I am pleased to see that the patient had identical chest pain after we were deploying his posterior lateral branch stenting due to the severe stenosis. His chest pain symptoms had completely resolved with stent deployment and he had no encroachment on his PDA stent. His right groin is clean/dry/intact without evidence of thrills, bruits or hematoma. I recommended lifelong dual antiplatelet therapy. He will be discharged home and follow-up with Dr. Newell going forward. He will then undergo cardiac rehab with a repeat echocardiogram at the conclusion of cardiac rehab. In addition he will continue his metoprolol, Pravachol. We will hold off on BRANDON inhibitor or ARB at this time given the patient's hypotension until he is performed cardiac rehab to determine whether he requires additional antihypertensive therapy. His blood pressure today is 90/60. 2. Hyperlipidemia: Continue Pravachol. Repeat lipid profile in 6 weeks time. 3. Discharge home and follow-up with Dr. Newell going forward.
[2018-05-14 09:26] LABS: ACT Activated Clotting Time 191 sec (74-137)
[2018-05-22 09:25] LABS: ACT Activated Clotting Time 136 sec (74-137)
== END 2018-05-09 10:39 | disposition home or self-care (01) ==
LOC: CLSP 09:32 → ICU 05-09 07:17
PROVIDERS: Internal Medicine Cardiovascular Disease; Family Provider Family Medicine; PCP Family Medicine; Referring Provider Internal Medicine Cardiovascular Disease; Visit Provider Internal Medicine Cardiovascular Disease
DX: I25.119 Atherosclerotic heart disease of native coronary artery with unspecified angina pectoris (principal); I10 Essential (primary) hypertension; E78.5 Hyperlipidemia, unspecified; T14.8XXA Other injury of unspecified body region, initial encounter; X58.XXXA Exposure to other specified factors, initial encounter; Y93.9 Activity, unspecified; Y92.9 Unspecified place or not applicable; Y99.9 Unspecified external cause status; I49.3 Ventricular premature depolarization; I95.9 Hypotension, unspecified; E66.9 Obesity, unspecified; Z79.02 Long term (current) use of antithrombotics/antiplatelets; Z79.82 Long term (current) use of aspirin; Z79.899 Other long term (current) drug therapy; Z95.5 Presence of coronary angioplasty implant and graft
CPT/HCPCS: 36415; 80048; 85025; 85027; 85347; 85610; 92921; 92928; 93005; J7030; J7040; A4216; C1725; C1769; C1874; C1887; C1894; C9600; Q9967

== ENCOUNTER 2018-08-13 10:12 | Day surgery (SDC) | payer MEDICARE, OTHER, SELFPAY ==
[2018-04-03 15:57] VITALS: BMI 30.7
[2018-05-31 07:07] VITALS: BMI 30.7
[2018-08-13 10:31] VITALS: BP 129/75; PULSE 56; RESP 16; TEMP 36.1; O2SAT 97; BMI 30.6
[2018-08-13] MEDS: Ciprofloxacin 0.3% 2.5ml Bottle 1 DRP (13:38)
--- NOTE | 2018-08-13 13:41 | OP.PCM_ITS ---
Operative Report Date of Procedure: 08/13/18 Operative procedure left myringotomy and insertion of T-tube Preoperative diagnosis left serous otitis media Postoperative diagnosis left serous otitis media Anesthesia General Procedure the patient was placed supine on the operating room table and after satisfactory general anesthesia had been obtained sterile head drapes were applied and the patient draped in the usual sterile manner. The left ear canal was prepped with 70% alcohol and the tympanic membrane examined with the operating microscope and a dull wolf-colored tympanic membrane was identified. An inferior incision was made with a Greenwood knife and clear fluid aspirated from the middle ear cleft. A T-tube was placed in positio n in the rent in the tympanic membrane. The tube was irrigated with Ciprodex solution. The procedure was considered terminated and the patient returned to the recovery room in satisfactory condition. Filemon Kwon MD
[2018-08-13 13:49] VITALS: BP 106/66; BP 129/78; PULSE 70; RESP 16; TEMP 36.1; O2SAT 96
[2018-08-13 14:00] VITALS: BP 109/70; BP 129/78; PULSE 70; RESP 16; O2SAT 94
[2018-08-13 14:11] VITALS: BP 110/80; BP 129/78; PULSE 66; RESP 16; TEMP 36.6; O2SAT 94
[2018-08-13 14:37] VITALS: BP 129/78
== END 2018-08-13 14:38 | disposition home or self-care (01) ==
LOC: SDC 10:13 → AC 10:14
PROVIDERS: Family Provider Family Medicine; PCP Family Medicine; Referring Provider Otolaryngology Otolaryngology/Facial Plastic Surgery; Visit Provider Otolaryngology Otolaryngology/Facial Plastic Surgery
DX: H65.22 Chronic serous otitis media, left ear (principal); H69.82 Other specified disorders of Eustachian tube, left ear; H93.12 Tinnitus, left ear; I25.10 Atherosclerotic heart disease of native coronary artery without angina pectoris; J30.9 Allergic rhinitis, unspecified; E78.00 Pure hypercholesterolemia, unspecified; Z79.02 Long term (current) use of antithrombotics/antiplatelets; Z79.82 Long term (current) use of aspirin; Z79.899 Other long term (current) drug therapy; Z95.5 Presence of coronary angioplasty implant and graft
CPT/HCPCS: 69436; J7120

== ENCOUNTER → 2018-10-11 05:54 | Outpatient (CLI) | payer MEDICARE, OTHER, SELFPAY ==
[2018-04-03 15:57] VITALS: BMI 30.7
[2018-09-20 08:29] VITALS: BMI 30.8
--- NOTE | 2018-10-11 08:52 | STRESSREP_ITS ---
Stress Test Report Exercise myocardial perfusion stress test. 68-year-old male with a history of coronary artery disease status post previous angioplasty. Stress protocol: Resting EKG demonstrates sinus rhythm with a rate of 55 bpm normal intervals are noted resting blood pressures 124/70 mmHg. The patient exercised according to regular Usrjit protocol for total duration of 9 minutes. Patient completed stage III of the Surjit protocol the maximum heart rate attained was 122 bpm which was 80% of maximum predicted heart rate the maximum workload was 10.4 metabolic equivalents. The patient maintained sinus rhythm throughout the recording at rest there were no ST or T wave changes noted suggest ischemia at peak exercise upsloping ST changes were noted with no meet the criteria for ischemia. Occasional premature ventricular complex was noted. The patient developed mild chest tightness radiating to bilateral arms and shoulders at peak exercise di ssipating with rest. The resting blood pressures 124/70 mmHg with a peak blood pressure 160/70 mmHg. Myocardial perfusion protocol. 11.6 mCi of technetium 99m sestamibi was injected at rest. The patient exercised according to regular Surjit protocol for 9 minutes at peak exercise 33.5 mCi of technetium 99m sestamibi was injected stress images were obtained stress and rest images were reconstructed and compared in the short axis vertical and horizontal long axis. Gated images were also obtained Perfusion SPECT analysis: Review of the stress images demonstrate normal uptake of tracer noted in all areas of myocardium. The resting images similar demonstrate normal uptake of tracer noted in all the rest of the myocardium. No obvious areas of reversibility are noted suggest ischemia no previous infarct is noted. Gated SPECT analysis: The gated ejection fraction is noted to be 81%. Conclusion: Normal exercise myocardial perfusion stress test with no evidence of ischemia. Chest pain noted suggestive of clinical angina present. Preserved ejection fraction. Good functional aerobic capacity noted.
== END ==
PROVIDERS: Family Provider Family Medicine; PCP Family Medicine; Referring Provider Internal Medicine Cardiovascular Disease; Visit Provider Internal Medicine Cardiovascular Disease
DX: I20.8 Other forms of angina pectoris (principal); R07.9 Chest pain, unspecified
CPT/HCPCS: 78452; 93017; A9500; A4216

== ENCOUNTER → 2018-11-06 09:20 | Outpatient (CLI) | payer MEDICARE, OTHER, SELFPAY ==
[2018-04-03 15:57] VITALS: BMI 30.7
[2018-11-06 08:25] VITALS: BMI 30.7
[2018-11-06 10:18] LABS: AST(SGOT) 20 U/L (15-37); Alanine Aminotransfer ALT/SGPT 32 U/L (16-61); Albumin, Serum 3.7 g/dL (3.2-5.0); Alkaline Phosphatase 74 U/L (45-117); Bilirubin, Direct 0.11 mg/dL (0.00-0.30); Cholesterol 131 mg/dL (200); Globulin 3.7 g/dL (2.2-4.2); High Density Lipoprotein 38 mg/dL; Protein, Total 7.4 g/dL (6.4-8.2); Triglycerides 105 mg/dL; Very Low Density Lipoprotein 21 mg/dL (5-40)
== END ==
PROVIDERS: Family Provider Family Medicine; PCP Family Medicine; Referring Provider Internal Medicine Cardiovascular Disease; Visit Provider Internal Medicine Cardiovascular Disease
DX: I25.10 Atherosclerotic heart disease of native coronary artery without angina pectoris (principal)
CPT/HCPCS: 36415; 80061; 80076

== ENCOUNTER 2018-12-23 06:45 | Day surgery (SDC) | payer MEDICARE, OTHER, SELFPAY ==
[2018-04-03 15:57] VITALS: BMI 30.7
[2018-12-20 09:24] VITALS: BMI 30.9
[2018-12-20 11:46] LABS: Absolute Lymphocyte Count 1.79 X10^3/uL (0.83-4.51); Absolute Neutrophil Count 4.3 X10^3/uL (2.0-7.7); Basophil# 0.04 X10^3/uL; Basophil% 0.6 % (0-1); Eosinophil# 0.36 X10^3/uL; Hematocrit 45.7 % (40-54); Hemoglobin 14.9 g/dL (13.0-16.5); Lymphocyte # 1.79 X10^3/ul (4.0); Lymphocyte % 24.9 % (19-41); Mean Corp Hgb Conc 32.6 g/dL (32-36); Mean Corpuscular Hgb 30.2 pg (27.0-32.0); Mean Corpuscular Volume 92.7 fL (80-94); Mean Platelet Vol. 8.7 fl (6.2-12.0); Monocyte# 0.68 X10^3/uL; Monocyte% 9.4 % (0-10); NRBC Flagged by Analyzer 0 % (0-5); Neutrophil # 4.32 X10^3/uL (2.7-7.7); Platelet Count 355 K/mm3 (150-450); RBC Distribution Width CV 13.1 % (11.6-14.6); RBC Distribution Width SD 44.7 fl (35.1-43.9); Red Blood Count 4.93 M/mm3 (4.6-6.2); White Blood Count 7.2 K/mm3 (4.4-11.0)
[2018-12-20 12:01] LABS: Anion Gap 5 (5-15); BUN 12 mg/dL (7-18); BUN/Creat Ratio 14.3 RATIO (10-20); Chloride 105 mmol/L (98-107); Creatinine, Serum 0.84 mg/dL (0.70-1.30); EST Glomerular Filtration Rate 96 mL/min (>60); Est Glom Filt Rate - Afr Amer 117 mL/min (>60); Glucose 104 mg/dL (74-106); Potassium 3.8 mmol/L (3.5-5.1); Sodium Level 139 mmol/L (136-145)
[2018-12-23] VITALS (27 sets, daily range): BP systolic 86–121; BP diastolic 51–78; PULSE 60–85; RESP 13–23; TEMP 36.6–36.9; O2SAT 92–96; BMI 30.9; BMI 30.1
--- NOTE | 2018-12-23 09:11 | CL.D_ITS ---
Patient Name: Suzanne HALL Study Date: 12/23/2018 Performing: Rodger Newell MD Ht: 66.14 inches 168 cm : 1950 Wt: 191.5 lbs 86.863 kg Age: 68 Gender: male BSA: 1.97 PROCEDURE(S) PERFORMED MD91-GGX/COR/LV CLINICAL PROFILE AND INDICATIONS Indications: Suspected CAD Heart Failure: None Stress/Imaging Date: 10/11/2018Stress/Image Study Performed: No CAD Presentations: Stable angina. Stable angina. CONCLUSIONS Previously placed stents patent in the left circumflex artery, diagonal vessel, left anterior descend ing artery, and right coronary artery. A small area distal to the previously placed stent in the rig ht coronary artery with a 60 to 80% stenotic lesion. RECOMMENDATIONS In view of patient's recurrent chest discomfort and angina despite normal stress testing and the fact that his stents are patent it appears that the only lesion which could potentially account for some of his symptoms of the distal right coronary artery. After my discussion with interventional cardiol ogist was felt that this lesion should be angioplastied. Above discussed with patient who is in [facility]. Referred for immediate PCI DESCRIPTION OF PROCEDURE The patient arrived to the procedure lab. The risks and benefits of the procedure as well as a full d escription of our services here and current unavailability of surgical backup were fully explained to the patient and/or their significant other prior to the catheterization. The Timeout was completed, verifying the correct patient and procedure. The patient's procedural site was prepped and draped in the usual fashion. Local anesthetic was given subcutaneously to right radial region with Lidocaine 2% . Using a modified Seldinger technique, arterial access was obtained via the right radial artery, a 6 Fr sheath was inserted. Left Coronary Artery selective angiography was performed in multiple views u sing a 5 Fr. 4.0 [place] catheter. Right Coronary Artery selective angiography was then performed in mu ltiple views using a 5 Fr. 4.0 [place] catheter. Left Ventriculography was performed in GARIBAY projection using a 5 Fr. Pigtail catheter. LV to AO pullback pressures were then recorded. CORONARY ANGIOGRAPHY DOMINANCE: Right Dominant LEFT HEART ASSESSMENT Left Ventricular Ejection Fraction: by LV Gram 60 % Normal LV wall motion Normal Left Ventricular systolic function LEFT MAIN: Angiographically normal LEFT ANTERIOR DESCENDING ARTERY: Instent restenosis 20 % DIAGONAL 1: Proximal - Previously placed stent is patent CIRCUMFLEX ARTERY: MID CIRC: Instent restenosis 20 % RIGHT CORONARY ARTERY: MID RCA: Mild luminal irregularities less than 30% DISTAL RCA: Previously placed stent is patent, 75 % Stenosis COMPLICATIONS PROCEDURE MEDICATIONS Versed 1 mg IV Fentanyl 50 mcg IV Versed 1 mg IV Oxygen: 2 L/min via nasal cannula Heparin 5000 unit(s) IV 12/23/2018 09:00:28 IV Bolus: .9 NaCl ml total 12/23/2018 08:42:37 SUMMARY OF HEMODYNAMIC DATA Time AIR REST ECG 07:13:46 AO 106/67 (84) SA 08:41:21 LV 92/0, 7 08:50:43 LV 87/-2, 4 08:50:49 LV 99/-7, -7 08:51:43 LVp 99/-5, 4 08:51:47 AOp 0/-41 (43) 08:51:52 Signed By Rodger Newell MD On 12/23/2018 09:10:33 Rodger Newell MD
[2018-12-23] MEDS: 0.9% Normal Saline 1,000 ML 60 ML IV (10:05)
--- NOTE | 2018-12-23 10:20 | CL.I_ITS ---
Patient Name: Suzanne HALL Study Date: 12/23/2018 Performing: Sabina Davis MD Ht: 66 inches 168 cm : 1950 Wt: 191.8 lbs 86.863 kg Age: 68 Gender: male BSA: 1.97 PROCEDURE(S) PERFORMED EC88-AMR W OR WO PTCA, SINGLE CORONARY ARTERY CLINICAL PROFILE AND CO-MORBIDITIES Indications: Suspected CAD Heart Failure: None Stress/Imaging Date: 10/11/2018 Stress/Image Study Performed: No CAD Presentations: Stable angina. Stable angina. CONCLUSIONS Successful PCI with PARTH to pRPDA RECOMMENDATIONS DESCRIPTION OF PROCEDURE The patient arrived to the procedure lab. The risks and benefits of the procedure as well as a full d escription of our services here and current unavailability of surgical backup were fully explained to the patient and/or their significant other prior to the catheterization. The Timeout was completed, verifying the correct patient and procedure. The patient's procedural site was prepped and draped in the usual fashion. Local anesthetic was given subcutaneously to right radial region with Lidocaine 2% Using a modified Seldinger technique,arterial access was obtained via the right radial artery, a 6Fr sheath was inserted. Left Coronary Artery selective angiography was performed in multiple views usin g a 5 Fr. 4.0 [place] catheter. Right Coronary Artery selective angiography was then performed in multi ple views using a 5 Fr. 4.0 [place] catheter. Left Ventriculography was performed in GARIBAY projection usi ng a 5 Fr. Pigtail catheter. LV to AO pullback pressures were then recorded.The images were reviewed and options discussed. A decision was then made to proceed with an Intervention, IVUS o r other adjunct procedure. JR 4 Guide catheter was inserted and engaged into the RCA. BMW Guide wire was advanced to the RCA . Synergy 2.25x12 Drug Eluting stent was inserted. Angiogram performed post stent deployment. The a rterial sheath was pulled and a TR Band was applied for hemostasis w/ 10ml air INTERVENTION INFORMATION LESION SITE: RT PDA (Proximal) Lesion Complexity: High/C, chronic total occlusion: No, lesion at bifurcation: Yes, lesion length: 10 mm, culprit lesion: Yes, Previously treated lesion: No, lesion at bifurcation: No Pre Stenosis: 70 % Pre intervention GISSELLE flow: 3 PROCEDURE: Drug Eluting Stent Post Stenosis: 0 % Post intervention GISSELLE flow: 3 Lesion Devices: Le .014 BMW Holderness Straight 190cm Cardinal 6 Fr JR4 100cm Guide Catheter Killian Sci Synergy MR PARTH 2.25x12 COMPLICATIONS No Complications PROCEDURE MEDICATIONS Versed 1 mg IV Fentanyl 50 mcg IV Versed 1 mg IV Oxygen: 2 L/min via nasal cannula Heparin diluted in 23cc Heparinized saline. Patient given 10cc IA of this solution. 12/23/2018 08:37: 36 Heparin 5000 unit(s) IV 12/23/2018 09:00:28 Verapamil 2.5mg, Ntg 100mcgs, 2000 units of Heparin diluted in 23cc Heparinized saline. Patient give n 10cc IA of this solution. 12/23/2018 08:37:36 IV Bolus: .9 NaCl 500 ml total 12/23/2018 08:42:37 SUMMARY OF HEMODYNAMIC DATA Time AIR REST ECG 07:13:46 AO 106/67 (84) SA 08:41:21 LV 92/0, 7 08:50:43 LV 87/-2, 4 08:50:49 LV 99/-7, -7 08:51:43 LVp 99/-5, 4 08:51:47 AOp 0/-41 (43) 08:51:52 Signed By Sabina Davis MD On 12/23/2018 10:20:03 Sabina Davis MD
--- NOTE | 2018-12-23 13:35 | CRPHASE1_ITS ---
Patient Communication PHII Cardiac Rehab Discussed with Patient:: Yes Guide to Cardiac Rehab Given to Patient:: Yes Cardiac Rehab Facility Choice List Given to Patient:: Yes Choice Program Other:: Communication Given to CR, With permission faxed order and referral information Medical Data Analyst:: Zoe Davis Refer Phase II Cardiac Rehab:: Yes Sessions:: 36 sessions - 3 days/wk, 12 weeks - AT BEDSIDE. PT PREFERS [facility] Risk Factors/Lifestyle Smoking Status: Never smoker Hx Hypertension: Yes Hx Diabetes Mellitus Type 1: No Hx Diabetes Mellitus Type 2: No Hx Metabolic Disorders: No Hx Dyslipidemia: Yes Hx Obesity: Yes - BMI 3.1 Stress: Home/Family Risk Factor for Sedentary Lifestyle: Moderate Risk Family History: Family History (Last Reviewed 12/20/18 @ 09:45 by Rodger Newell MD) Father CAD (coronary artery disease) Past Cardiac Illness: Coronary Artery Disease, Previous PCI w/Stent Phase I Education Given On:: [place], Nutrition, Antiplatelet medication Issues Affecting Care:: Reading difficulty Knowledge of Condition:: Yes Learning Preferences: Verbal, Written Hospital Course Presenting Symptoms:: ABNORMAL STRESS Medical/Surgical History NC:: No CAD:: Yes Diabetes:: No Hypertension:: Yes Dyslipidemia:: Yes PTCA:: Yes - APRIL 2018 Discharge/Home/Social Eval Discharge Disposition: Home Marital Status: Cardiac Rehabilitation Info Cardiac Rehabilitation Program Information: Cardiac Rehabilitation is important for patients like you who are recovering from a heart problem. Cardiac rehabilitation programs are recognized as integral to the continued care of the patient with coronary heart disease. The cardiac rehabilitation program is designed to optimize a patient's physical, psychological, and social functioning. Health child care lead teacher work in cardiac rehabilitation programs and assist you with getting the treatments you need to get stronger and healthier - like exercise, healthy eating habits, and medications. Cardiac rehabilitation has been show to help people with heart problems live longer and have better life enjoyment than people who do not go to cardiac rehabilitation. Please contact the Cardiac Rehabilitation Program at [facility] at in two weeks if you have not heard from them.
--- NOTE | 2018-12-23 13:38 | CRPH1.INSTRU ---
General Education CAD and cardiac anatomy and function:: Patient communicates acknowledgment, Family communicates acknowledgment Explanation of diagnoses and procedures:: Patient communicates acknowledgment, Family communicates acknowledgment Sign/Symptoms of HI:: Patient communicates acknowledgment, Family communicates acknowledgment Antiplatelet therapy: Patient communicates acknowledgment, Family communicates acknowledgment Proper use of NTG-SL: Not instructed Emergency procedures and activation of EMS: Patient communicates acknowledgment, Family communicates acknowledgment Compliance of all prescribed medications: Patient communicates acknowledgment, Family communicates acknowledgment - AT BEDSIDE Smoking Patient Nicotine/Smoking Risk Factors Are:: Never smoked Dyslipidemia Patient Dyslipidemia Risk Factors Are:: Total Cholesterol, Triglycerides, HDL, LDL Recommendations Include:: Lipid profile provided, Reviewed NCEP/ATP guidelines, Therapeutic Lifestyle Change dietary guidelines Dyslipidemia Response Code:: Patient communicates acknowledgment, Family communicates acknowledgment Overweight/Obesity Patient Overweight/Obesity Risk Factors Are:: Obesity - > or = 30 Recommendations Include:: Weight loss of 5-10%, Reduced calorie diet, Exercise 5-7 times/week Overweight/Obesity:: Patient communicates acknowledgment, Family communicates acknowledgment Hypertension Recommendations Include:: Maintain BP <130/85, DASH dietary guidelines, Decrease/maintain normal body weight, Moderation of ETOH Hypertension:: Patient communicates acknowledgment, Family communicates acknowledgment Heart Disease Patient Heart Disease Risk Factors Are:: Previous cardiac event Heart Disease Response Code:: Patient communicates acknowledgment, Family communicates acknowledgment Diabetes Patient Diabetes Risk Factors Are:: No documented hx of diabetes Metabolic Syndrome Patient Metabolic Syndrome Risk Factors Are [3 of 5]:: Waist circumference > 35 [female] or 40 [male], Hypertension, Low HDL <40 [male] or < 50 [female] Recommendations Include:: Reinforce compliance to risk factor modifications Metabolic Syndrome Response Code:: Patient communicates acknowledgment, Family communicates acknowledgment Sedentary Patient Sedentary Risk Factors Are:: Lack of regular exercise Recommendations Include:: Aerobic exercise 5-7 times/week for 20-30 minutes continuously, Benefits of regular exercise, Discussed home walking program, Monitored Outpatient Cardiac Rehab Sedentary Response Code:: Patient communicates acknowledgment, Family communicates acknowledgment Stress Recommendations Include:: Identification of stressors, and assessment of coping skills, Stress management techniques Stress Response Code:: Patient communicates acknowledgment, Family communicates acknowledgment
[2018-12-23] MEDS: Tamsulosin HCl 0.4 MG Capsule PO (18:21)
[2018-12-23] MEDS: amLODIPine 2.5 MG Tablet PO (19:33)
[2018-12-23] MEDS: Metoprolol Tartrate 25 MG Tablet PO (19:33)
[2018-12-23] MEDS: Pravastatin 40 MG Tablet PO (19:35)
[2018-12-24] VITALS (12 sets, daily range): BP systolic 92–112; BP diastolic 56–72; PULSE 58–84; RESP 15–22; TEMP 36.9–37.1; O2SAT 93–96
--- NOTE | 2018-12-24 01:12 | NURSING ---
Pt up, walking in [place]; monitor in hand. Denies needs or complaints, just needed to walk a bit. No rhythm ectopy noted during exertion
[2018-12-24 05:15] LABS: Hematocrit 45.1 % (40-54); Hemoglobin 14.8 g/dL (13.0-16.5); Mean Corp Hgb Conc 32.8 g/dL (32-36); Mean Corpuscular Hgb 30.3 pg (27.0-32.0); Mean Corpuscular Volume 92.2 fL (80-94); Mean Platelet Vol. 8.4 fl (6.2-12.0); Platelet Count 305 K/mm3 (150-450); RBC Distribution Width CV 13.1 % (11.6-14.6); RBC Distribution Width SD 44.2 fl (35.1-43.9); Red Blood Count 4.89 M/mm3 (4.6-6.2); White Blood Count 8.5 K/mm3 (4.4-11.0)
[2018-12-24 05:40] LABS: ALB/GLOB Ratio 0.9 RATIO (0.9-2.4); AST(SGOT) 16 U/L (15-37); Alanine Aminotransfer ALT/SGPT 29 U/L (16-61); Albumin, Serum 3.2 g/dL (3.2-5.0); Alkaline Phosphatase 72 U/L (45-117); Anion Gap 8 (5-15); BUN 17 mg/dL (7-18); BUN/Creat Ratio 20.9 RATIO (10-20); Calcium,Total 8.2 mg/dL (8.5-10.1); Chloride 108 mmol/L (98-107); Creatinine, Serum 0.81 mg/dL (0.70-1.30); EST Glomerular Filtration Rate 100 mL/min (>60); Est Glom Filt Rate - Afr Amer 121 mL/min (>60); Estimated Creatinine Clearance 77.67 ml/min; Globulin 3.4 g/dL (2.2-4.2); Glucose 115 mg/dL (74-106); Potassium 3.7 mmol/L (3.5-5.1); Protein, Total 6.6 g/dL (6.4-8.2); Sodium Level 141 mmol/L (136-145)
[2018-12-24] MEDS: Clopidogrel Bisulfate 75 MG Tablet PO (08:13)
--- NOTE | 2018-12-24 08:13 | PCM.PN.CARD ---
Subjectve: Patient seen and evaluated. Appears to be doing well. No untoward events overnight Objective: Vital Signs Temp Pulse Resp BP Pulse Ox 98.5 F 75 18 112/72 96 12/24/18 08:00 12/24/18 08:00 12/24/18 08:00 12/24/18 08:00 12/24/18 08:00 Oxygen Delivery Method Room Air Weight: 186 lb 4.65 oz Body Mass Index (BMI) 30.1 Intake and Output for Last 24 Hours 12/22/18 12/23/18 12/24/18 23:59 23:59 23:59 Intake Total 355 / 355 Output Total 1200 / 1200 Balance -845 / -845 General: Awake, Alert, Oriented x 3 HEENT: PERRL, EOMI, Sclera Non Icteric Neck: Supple, Good ROM, No Lymph Node Enlargement Lungs: Clear to auscultation Cardiovascular: Regular Rhythm, Normal S1, Normal S2, No Murmurs, No Rubs, No Gallops Vascular: No Carotid Bruits, Normal Femoral Pulses, Normal Radial Pulses, Normal Dorsalis Pedal Pulse, Normal Posterior Tibial Pulses Abdomen: Bowel Sounds Present, Soft, Non Tender, No HSM, No Organomegaly Extremities: No Cyanosis, No Clubbing, No edema Musculoskeletal: No Erythema Skin: No Rashes Lymphatic: No Lymph Node Enlargement Neurological: No Focal Motor or Sensory Deficit Psych/Mental Status: Appropriate 12/24/18 05:05: WBC 8.5, RBC 4.89, Hgb 14.8, Hct 45.1, MCV 92.2, MCH 30.3, MCHC 32.8, Plt Count 305, MPV 8.4 12/24/18 05:05: Sodium 141, Potassium 3.7, Chloride 108 H, Carbon Dioxide 25.0, Anion Gap 8, BUN 17, Creatinine 0.81, Est GFR (MDRD) Af Amer 121, Est GFR (MDRD) Non-Af 100, BUN/Creatinine Ratio 20.9 H, Glucose 115 H, Calcium 8.2 L, Total Bilirubin 0.40 Rhythm: EKG: ECHO: Stress Test: Cardiac Cath: PCI: CT Surgery: Holter monitor: EPS: PPM: CXR: Chest CT Scan: Medical Necessity - Tobacco Use Smoking Status: Never smoker Assessment/Plan 1. Status post angioplasty and stenting of the distal right coronary artery. Patient appears to have done well overnight. EKGs have remained stable he is not developed any further chest pain and no EKG changes. We will discharge today for outpatient follow-up. Medications to remain the same.
[2018-12-24] MEDS: Aspirin E.C. 81 MG Tablet PO (08:14)
[2018-12-24] MEDS: Metoprolol Tartrate 25 MG Tablet PO (08:14)
[2018-12-24] MEDS: amLODIPine 2.5 MG Tablet PO (08:14)
--- NOTE | 2018-12-24 08:15 | PCM.DC.CCA ---
Discharge Diet: Low fat/ Low Cholesterol, Carb Control Diet Lifting Restrictions: 10 pounds and also avoid any pushing or pulling for 3 days after your test. Additional Activity Instructions:: You must have someone drive you home. Do not drive until instructed by your doctor. You must have someone stay with you all night after your test. Rest in bed or on the couch until the next morning. Limit the number of times you go up and down stairs the day of your test. Apply pressure to the puncture site if you sneeze or cough. Call your doctor if your incision/area has: Increased Pain/ Swelling, Increased Redness, Foul Smelling Discharge, Swelling at the incision site Call your doctor if you observe: Fever of 101 or Higher Additional Dressing/Incision Instructions:: Keep the dressing (bandage) on until the next morning. You may then shower, but do not take a tub bath for 5 days after your test. It is normal to have some tenderness and discomfort at the puncture site. Sometimes bruising also occurs. However, if pain, numbness, or coldness occurs below the puncture site (in your leg, toes, arms or fingers) call your doctor at once. You may have a small, marble sized knot at the puncture site. This is normal. Do not rub it. It will go away in 4-6 weeks. Bleeding can occur from the area where the puncture was done. Blood may spurt or drip from the site. If blood spurts, apply pressure right away to stop bleeding and call 911. Although rare, bleeding into the tissue (hematoma) can also occur. If this happens, a large, firm area goose egg under the skin will appear. If any of these occur, lie down as flat as you can and have someone apply firm pressure to the cath site with a gauze pad or a clean washcloth for 10-15 minutes. Call 911 or go to the Emergency Department. Allergies/Adverse Reactions: Allergies isosorbide Adverse Reaction (Verified 12/20/18 09:27) headaches ticagrelor [From Brilinta] Adverse Reaction (Verified 12/20/18 09:27) Orthopnea pt stated he can not breath when he lays down Medications to take at Discharge tamsulosin 0.4 mg capsule 0.4 mg PO DAILY 02/01/18 aspirin 81 mg tablet,delayed release 81 mg PO QDAY #90 tab 03/06/18 metoprolol tartrate 25 mg tablet 25 mg PO BID #180 tab 03/06/18 pravastatin 40 mg tablet 40 mg PO QHS #90 tab 03/06/18 clopidogrel 75 mg tablet 75 mg PO QDAY #90 tab 04/18/18 amlodipine 2.5 mg tablet 2.5 mg PO BID #60 tab 11/06/18 nitroglycerin 0.4 mg sublingual tablet 0.4 mg SUBLINGUAL Q5-15M PRN #25 tab 12/06/18 Orders to be completed after discharge: Phase II, Outpatient Cardiac Rehab Location: None Selected Primary Care Physician: Alvaro Smith DO [Primary Care Provider] - Test Results: Test results from this visit will be discussed in further detail at your follow-up appointment, if applicable. When: call office for appt Proposed Discharge Date: 12/24/18 Cardiac Rehabilitation Info Cardiac Rehabilitation Program Information: Cardiac Rehabilitation is important for patients like you who are recovering from a heart problem. Cardiac rehabilitation programs are recognized as integral to the continued care of the patient with coronary heart disease. The cardiac rehabilitation program is designed to optimize a patient's physical, psychological, and social functioning. Health manager critical care work in cardiac rehabilitation programs and assist you with getting the treatments you need to get stronger and healthier - like exercise, healthy eating habits, and medications. Cardiac rehabilitation has been show to help people with heart problems live longer and have better life enjoyment than people who do not go to cardiac rehabilitation. Please contact the Cardiac Rehabilitation Program at [facility] at in two weeks if you have not heard from them.
== END 2018-12-24 08:16 | disposition home or self-care (01) ==
LOC: CLSP 06:45 → ICU 15:02
PROVIDERS: Specialist; Family Provider Family Medicine; PCP Family Medicine; Referring Provider Internal Medicine Cardiovascular Disease; Visit Provider Internal Medicine Cardiovascular Disease
DX: T82.858A Stenosis of other vascular prosthetic devices, implants and grafts, initial encounter (principal); I25.119 Atherosclerotic heart disease of native coronary artery with unspecified angina pectoris; E78.5 Hyperlipidemia, unspecified; N40.0 Benign prostatic hyperplasia without lower urinary tract symptoms; E66.9 Obesity, unspecified; R94.39 Abnormal result of other cardiovascular function study; Z79.02 Long term (current) use of antithrombotics/antiplatelets; Z79.82 Long term (current) use of aspirin; Z79.899 Other long term (current) drug therapy; Z95.5 Presence of coronary angioplasty implant and graft
CPT/HCPCS: 36415; 80048; 80053; 85025; 85027; 92928; 93005; 93458; 99152; 99153; J7030; J7040; Q9967; C1769; C1874; C1887; C1894; C9600

== ENCOUNTER → 2019-11-04 15:07 | Outpatient (CLI) | payer MEDICARE, OTHER, SELFPAY ==
[2018-04-03 15:57] VITALS: BMI 30.7
[2019-05-21 08:50] VITALS: BMI 30.8
--- NOTE | 2019-11-04 15:10 | RAD_ITS ---
STUDY: X-RAY - RIGHT KNEE REASON FOR EXAM: Male, 69 years old. Right knee pain, patellofemoral pain TECHNIQUE: 4 view(s) of the knee. COMPARISON: None. FINDINGS: Normal visualized distal femur. Normal visualized proximal tibia and fibula. Normal proximal tibiofibular articulation. There is minimal enthesopathy at the patella at the quadriceps insertion. There is mild degenerative arthrosis of the medial femorotibial compartment. Normal lateral femorotibial compartment. Normal patellofemoral articulation. There is nonspecific mildly thickened appearance of the superficial soft tissues anterior to the patella tendon. RAD/Knee 4 or More Views IMPRESSION: Mild soft tissue edema. Mild degenerative change. No visualized acute fracture. Electronically Signed: Mallorie Luis MD at 7:01 EDT Tel , Service support ,
== END ==
PROVIDERS: PCP Family Medicine; Referring Provider Family Medicine; Visit Provider Family Medicine
DX: M25.561 Pain in right knee (principal)
CPT/HCPCS: 73564

== ENCOUNTER → 2020-01-06 15:13 | Outpatient (CLI) | payer MEDICARE, OTHER, SELFPAY ==
[2018-04-03 15:57] VITALS: BMI 30.7
[2020-01-06 12:32] VITALS: BMI 31.6
[2020-01-06 17:49] LABS: AST(SGOT) 17 U/L (15-37); Alanine Aminotransfer ALT/SGPT 29 U/L (16-61); Alkaline Phosphatase 71 U/L (45-117); Bilirubin, Direct 0.18 mg/dL (0.00-0.30); Cholesterol 150 mg/dL (200); Globulin 3.7 g/dL (2.2-4.2); High Density Lipoprotein 42 mg/dL; Protein, Total 7.7 g/dL (6.4-8.2); Triglycerides 109 mg/dL; Very Low Density Lipoprotein 22 mg/dL (5-40)
== END ==
PROVIDERS: PCP Family Medicine; Visit Provider Internal Medicine Cardiovascular Disease
DX: E78.00 Pure hypercholesterolemia, unspecified (principal)
CPT/HCPCS: 36415; 80061; 80076

== ENCOUNTER → 2020-06-21 06:26 | Outpatient (CLI) | payer MEDICARE, OTHER, SELFPAY ==
[2018-04-03 15:57] VITALS: BMI 30.7
[2020-01-06 12:32] VITALS: BMI 31.6
--- NOTE | 2020-06-21 06:41 | MRI_ITS ---
STUDY: MRI BRAIN WITH AND WITHOUT CONTRAST REASON FOR EXAM: Male, 70 years old. FRONTAL DAILY HEADACHES X 6 MONTHS TECHNIQUE: Standardized multiplanar fat and water weighted pulse sequences were obtained. IV 17cc dotarem was administered for the contrast portion of the examination. COMPARISON: None. FINDINGS: Normal size of the ventricles and extra-axial spaces for the patient''s age. Normal white matter tracts of the supratentorial brain. There is no evidence for recent intracranial ischemia or other cause of cytotoxic edema on diffusion weighted imaging (DWI). Normal T2* images of the brain without demonstrated susceptibility artifact. There is no demonstrated hemosiderin stain. Normal bilateral basal ganglia. Normal thalami. There is no extra-axial fluid accumulation. Normal flow voids within the major intracranial circulation suggesting patency by spin echo criteria. Normal venous enhancement. There is no enhancing intra-axial or extra-axial abnormality. Normal sella turcica, pituitary gland, infundibular stalk, optic chiasm and hypothalamus. Normal tectal plate and pineal gland. Normal midbrain, garth and medulla. Normal cerebellum. Normal basal cisterns. Normal bilateral temporal bones. Normal bilateral internal auditory canals. No demonstrated orbital abnormality, within the constraints of a routine brain study. Normal visualized paranasal sinuses. Normal calvarium and skull base. Normal visualized soft tissue structures. Normal visualized upper cervical spine. MRI/Brain W/WO Contrast IMPRESSION: Normal unenhanced and enhanced MRI of the brain. Electronically Signed: Geovanni Story MD at 8:40 EDT Tel , Service support ,
[2020-06-21 06:55] LABS: CREATININE FINGERSTICK 0.9 mg/dL (0.70-1.30); EGFR FINGERSTICK > 60.0000 mL/min (>60)
== END ==
PROVIDERS: PCP Family Medicine; Referring Provider Family Medicine; Visit Provider Family Medicine
DX: R51.9 Headache, unspecified (principal); H93.13 Tinnitus, bilateral
CPT/HCPCS: 70553; A9575

== ENCOUNTER → 2021-01-27 07:06 | Outpatient (CLI) | payer MEDICARE, OTHER, SELFPAY ==
[2018-04-03 15:57] VITALS: BMI 30.7
--- NOTE | 2021-01-27 17:04 | STRESSREP_ITS ---
Stress Test Report Exercise myocardial perfusion stress test. 70-year-old man with a history of coronary artery disease. Medications pravastatin, tadalafil, metoprolol, aspirin, amlodipine, Plavix. Stress protocol: Resting EKG demonstrates sinus bradycardia with a rate of 58 bpm normal intervals are noted resting blood pressure is 124/80 mmHg. The patient e xercised according to the regular Surjit protocol for total duration of 8 minutes and 15 seconds. Patient completed 2 minutes and 15 seconds into stage III of the Surjit protocol. The maximum heart rate attained was 141 bpm which was 94% of max impact at heart rate the maximum workload was 10.1 metabolic equivalents. Patient maintained sinus rhythm throughout the recording. At rest there were no ST or T wave changes noted to suggest ischemia and at peak exercise upsloping ST changes only were noted with did not meet the criteria for ischemia. Occasional premature ventricular complex was noted. Mild chest discomfort was noted at peak exercise. This rapidly dissipated on cessation of the exercise. The peak blood pressure was 160/72 mmHg. Myocardial perfusion protocol. 11.9 mCi of technetium 99m sestamibi was obtained at rest. The patient exercised according to regular Surjit protocol for 8 minutes and 15 seconds and at peak exercise 33.4 mCi of technetium 99m sestamibi was injected stress images were obtained stress and rest images were reconstructed and compared in the short axis vertical long and horizontal long axis. Gated images were also obtained. Perfusion SPECT analysis: Review of the stress images demonstrate normal uptake of tracer noted in all areas of the myocardium. The resting images similarly demonstrate normal uptake of tracer noted in all areas of the myocardium. No areas of reversibility are noted to suggest ischemia and no previous infarct is noted. Gated SPECT analysis: The gated ejection fraction is 71%. Conclusion: Normal exercise myocardial perfusion stress test at a high workload. Minimal clinical angina noted. Preserved ejection fraction.
== END ==
PROVIDERS: PCP Family Medicine; Referring Provider Internal Medicine Cardiovascular Disease; Visit Provider Internal Medicine Cardiovascular Disease
DX: I25.119 Atherosclerotic heart disease of native coronary artery with unspecified angina pectoris (principal)
CPT/HCPCS: 78452; 93017; A9500; A4216

== ENCOUNTER → 2022-01-04 | Outpatient (CLI) | payer MEDICARE, OTHER, SELFPAY ==
[2018-04-03 15:57] VITALS: BMI 30.7
[2022-01-04 10:53] LABS: Absolute Lymphocyte Count 1.84 X10^3/uL (0.83-4.51); Absolute Neutrophil Count 4.1 X10^3/uL (2.0-7.7); Basophil# 0.04 X10^3/uL; Basophil% 0.6 % (0-1); Eosinophil# 0.43 X10^3/uL; Hematocrit 46.9 % (40-54); Hemoglobin 15.7 g/dL (13.0-16.5); Lymphocyte # 1.84 X10^3/ul (0.83-4.51); Lymphocyte % 25.5 % (19-41); Mean Corp Hgb Conc 33.5 g/dL (32-36); Mean Corpuscular Hgb 30.8 pg (27.0-32.0); Mean Platelet Vol. 8.8 fl (6.2-12.0); Monocyte# 0.84 X10^3/uL; Monocyte% 11.6 % (0-10); NRBC Flagged by Analyzer 0 % (0-5); Neutrophil # 4.05 X10^3/uL (2.7-7.7); Platelet Count 398 K/mm3 (150-450); RBC Distribution Width CV 13.4 % (11.6-14.6); RBC Distribution Width SD 45.7 fl (35.1-43.9); White Blood Count 7.2 K/mm3 (4.4-11.0)
[2022-01-04 11:30] LABS: AST(SGOT) 19 U/L (15-37); Alanine Aminotransfer ALT/SGPT 29 U/L (16-61); Albumin, Serum 3.6 g/dL (3.2-5.0); Alkaline Phosphatase 79 U/L (45-117); Anion Gap 6 (5-15); BUN 15 mg/dL (7-18); BUN/Creat Ratio 19.3 RATIO (10-20); Bilirubin, Direct 0.13 mg/dL (0.00-0.30); Chloride 105 mmol/L (98-107); Cholesterol 147 mg/dL (200); Creatinine, Serum 0.78 mg/dL (0.70-1.30); EST Glomerular Filtration Rate 104 mL/min (>60); Est Glom Filt Rate - Afr Amer 126 mL/min (>60); Globulin 3.7 g/dL (2.2-4.2); Glucose 103 mg/dL (74-106); High Density Lipoprotein 41 mg/dL; Potassium 3.9 mmol/L (3.5-5.1); Protein, Total 7.3 g/dL (6.4-8.2); Sodium Level 140 mmol/L (136-145); Triglycerides 96 mg/dL; Very Low Density Lipoprotein 19 mg/dL (5-40)
== END | disposition home or self-care (01) ==
LOC: LAB 09:53
PROVIDERS: PCP Family Medicine; Visit Provider Internal Medicine Cardiovascular Disease
DX: E78.5 Hyperlipidemia, unspecified (principal); Z95.5 Presence of coronary angioplasty implant and graft
CPT/HCPCS: 36415; 80048; 80061; 80076; 85025

== ENCOUNTER → 2022-03-20 | Outpatient (CLI) | payer MEDICARE, OTHER, SELFPAY ==
[2018-04-03 15:57] VITALS: BMI 30.7
--- NOTE | 2022-03-20 19:17 | STRESSREP ---
Stress Test Report Exercise myocardial perfusion stress test. 71-year-old man with a history of chest pain Stress protocol: Resting EKG demonstrates normal sinus rhythm with a rate of 60 bpm resting blood pressure is 118/70 mmHg. The patient exercised according to the regular Surjit protocol for a total duration of 6 minutes and 31 seconds attaining a maximum heart rate of 110 bpm which was 74% of maximum predicted heart rate; the maximum workload was 8.5 metabolic equivalents. At rest there were no ST or T wave changes noted to suggest ischemia and at peak exercise upsloping ST changes only were noted which did not meet the criteria for ischemia. Patient appeared to experience mild chest discomfort throughout the test with some shortness of breath. The test started with minimal chest pain present. The test was terminated due to the target heart rate being achieved and shortness of breath. The peak blood pressure was 130/62 mmHg. Rate-pressure product was 13,900. Myocardial perfusion protocol. 10.8 mCi of technetium 99m sestamibi was injected at rest. The patient exercised according to regular Surjit protocol for total duration of 6 minutes and 31 seconds and at peak exercise 33.2 mCi of technetium 99m sestamibi was injected stress images were obtained stress and rest images were reconstructed in comparing the short axis vertical long and horizontal long axis. Gated images were also obtained. Perfusion SPECT analysis: Review of the stress images demonstrate normal uptake of tracer noted in all areas of the myocardium. The resting images similarly demonstrate normal uptake of tracer noted in all areas of the myocardium. No areas of reversibility are noted to suggest ischemia no previous infarct was noted. Gated SPECT analysis: The gated ejection fraction is 78%. Conclusion: Normal exercise myocardial perfusion stress test at a moderate workload Preserved ejection fraction. Mild chest discomfort which did not worsen with exertion or EKG changes
== END | disposition home or self-care (01) ==
LOC: CVS 05:41
PROVIDERS: PCP Family Medicine; Referring Provider Internal Medicine Cardiovascular Disease; Visit Provider Internal Medicine Cardiovascular Disease
DX: I25.118 Atherosclerotic heart disease of native coronary artery with other forms of angina pectoris (principal)
CPT/HCPCS: 78452; 93017; A9500; A4216